=== PATIENT | male | born 1940 | race Caucasian/White ===

== ENCOUNTER 2019-08-18 15:30 | Inpatient (IN) ==
[2019-08-18 18:17] LABS: Basophils # (auto) 0.01 K/uL (0-0.2); Basophils % (auto) 0.1 %; Hematocrit (blood only) 40.8 % (42-52); Hemoglobin 13.6 g/dL (14.0-18.0); Immature Granulocytes # (auto) 0.06 K/uL (0.00-0.02); Immature Granulocytes % (auto) 0.5 %; Lymphocytes # (auto) 0.62 K/uL (1.2-3.4); Lymphocytes % (auto) 4.7 %; Mean Corpuscular Hemoglobin 32.5 pg (25-34); Mean Corpuscular Hgb Conc 33.3 g/dL (32-36); Mean Corpuscular Volume 97.4 fL (80-100); Mean Platelet Volume 12.1 fL (7.4-10.4); Monocytes # (auto) 0.51 K/uL (0.11-0.59); Monocytes % (auto) 3.9 %; Neutrophils # (auto) 11.86 K/uL (1.4-6.5); Neutrophils % (auto) 90.8 %; Platelet Count 220 K/uL (130-400); RDW Coefficient of Variation 14.3 % (11.5-14.5); RDW Standard Deviation 51.2 fL (36.4-46.3); Red Blood Count 4.19 M/uL (4.7-6.1); White Blood Count 13.06 K/uL (4.8-10.8)
[2019-08-18 18:30] LABS: Partial Thromboplastin Ratio 0.9; Partial Thromboplastin Time 25.2 Seconds (21.0-31.0); Prothrombin Time 10.5 Seconds (9.0-12.0)
[2019-08-18 18:35] LABS: BUN Creatinine Ratio 20.8 (10-20); Calcium 9.7 mg/dl (8.5-10.1); Est GFR (African American) 54.5
[2019-08-18 18:42] LABS: Troponin I 10.2 ng/ml (0-0.045)
[2019-08-18] MEDS ORDERED: OPTIRAY 320 125ml IV PRN (18:51)
--- NOTE | 2019-08-18 19:08 | CT Scan Report ---
CT angio chest PE protocol CT DOSE: 647.28 mGycm HISTORY: 78 years-old Male with Chest Pain, eval for PE. Acute chest pain TECHNIQUE: Multiple CTA images of the chest were obtained after the intravenous administration of 119 ml Optiray 320. Coronal and sagittal MIPS were obtained from the axial data set and were submitted for review. All measurements were obtained according to NASCET criteria. A dose lowering technique w as utilized adhering to the principles of ALARA. COMPARISON: CTA of the neck 06/30/2019 FINDINGS: CTA: Moderate cardiomegaly. Prior median sternotomy and CABG with [place] coronary arterial calcifications. Study is limited secondary to respiratory motion and upper extremity positioning. Fusiform dilation of the ascending thoracic aorta, 4.2 x 4.1 cm. Moderate mixed plaque with patency of the imaged great vessels. No dissection. Mild descending thoracic tortuosity. Pulmonary arterial tree is opacified to the level of the segmental branches. No filling defects identified to suggest pulmonary thromboembol ic disease. CT CHEST: Unremarkable thyroid. No adenopathy by CT size criteria. Mild bronchial wall thickening. No pneumotho rax, pleural effusion, overt pulmonary edema or airspace consolidation typical for pneumonia. Mild ross bsegmental basilar atelectasis. There are no suspicious pulmonary nodules or masses identified. The c entral airways are patent. No acute process of the imaged upper abdomen. 11 mm soft tissue density structure adjacent to the gas tric fundus is suggestive of a small splenule. Soft tissues are unremarkable. Degenerative changes of the shoulders and spine. Postoperative changes of the left proximal humerus. IMPRESSION: 1. Cardiomegaly without evidence of pulmonary thromboembolic disease. 2. Mild bronchial wall thickening may reflect bronchitis or reactive airway disease. 3. Fusiform dilation of the ascending thoracic aorta, 4.2 x 4.1 cm. 4. No adenopathy, pleural effusion or airspace consolidation to suggest pneumonia. ACT 112: Negative or not required by law. The above report was generated using voice recognition software. It may contain grammatical, syntax o r spelling errors. Electronically signed by: Mick Altamirano M.D. 08/18/2019 7:06 PM
[2019-08-18] MEDS ORDERED: ASPIRIN CHEW 324 MG PO STA (19:18)
[2019-08-18] MEDS ORDERED: Heparin IV Low Dose WITH Bolus IV STA (19:18)
[2019-08-18] MEDS ORDERED: HEPARIN SOD (PORCINE) 1000 UNIT/ML 10 ML VIAL ONE (20:12)
[2019-08-18] MEDS: HEPARIN SODIUM/DEXTROSE 25,000 UNITS/500 ML BAG IV SCH (20:19)
--- NOTE | 2019-08-18 20:45 | History & Physical Report ---
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 Acute coronary syndrome -Pt denied any prior chest pain or SOB, has none currently -Pt with noted ST segment elevations in inferior leads on EKG, since resolved. -Troponin elevated to 10.2; will trend q6h -Echo pending -aspirin 324mg given in ED -continue nitrobid 2.5mg BID scheduled -continue heparin drip; bolus given in ED -pt unsure of home hypertension med; will start on metoprolol succinate 25mg daily -can start OLIMPIA 24hrs after presentation -will admit to PCU/tele for continued monitoring -given resolution of EKG changes, pt will be taken to laborer drying department in AM. Has Hx of prior CABG 3-4 years ago in hospital, unsure hospital or number of stents placed. RJ -pt with noted baseline cr of 1.32 in Nov -currently elevated -continue fluids @80cc/hr -to d/c after 2 bags -echo ordered as above to ensure no component of fluid overload-will discontinue in that case. Right lower extremity swelling -Pt presented to [facility] doctor for evaluation -States this is the site of venous grafting for his CABG -RLE doppler showed no evidence of DVT -no concern for infection currently -continue to monitor Elevated D-Dimer -D-dimer elevated to 3110 -As above, no evidence of DVT in RLE -CTA with no noted PE, but did note cardiomegaly without thromboembolic disease, mild bronchial wall thickening, fusiform dilation of ascending thoracic aorta. -continue heparin as above HTN -pt unsure of home medication and dosage -started here on metoprolol succinate 25mg daily as above -will continue to assess bp, continue home med as needed once nature and dose verified. BPH -pt states he is on home finasteride. -will re-start once home dose confirmed. HLD -pt states he has this history and is on a home statin -recent lipid panel unremarkable -Carotid doppler 05/22/19: >70% stenosis of R internal carotid, 50-69% stenosis of L internal carotid -Neck CTA showed stenosis of R vertebral artery FEN/GI: Heart healthy diet; NSS @80cc/hr DVT prophylaxis: heparin CODE STATUS: Full Dispo: PCU/Tele History of Present Illness Primary Care Provider: [facility] Mr. 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 Pt states he does not recall having chest pain today at all, nor SOB. States there was nothing out of the ordinary except the noted swelling in his lower extremities. Recently moved a few months ago from [place], [place]. States he graduated from [employer] and wanted to retire here. 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 PMH: HTN, HLD, BPH, denies ever having an ME but states he had "open heart surgery" with stent placment 3-4 years a go (see below) PSH: Hx of CABG Allergies: NKDA Fam Hx: Mom from kidney disease, dad, unsure health Hx. No children. Unsure sibling health Hx. SH: Lives at [facility], retired. Smoked for about 2 years over 40 years ago, few cigarettes sporadically. Occasional wine drinker, no recreational drug use. Was very active in his younger years biking, now walks around [facility] property. ED Course: Heparin bolus and started on heparin drip, aspirin 324mg Allergies Allergy/AdvReac Type Severity Reaction Status Date / Time No Known Allergies Allergy Unverified 08/18/19 18:47 Home Medications Home Medications Medication Instructions Recorded Confirmed Type Prostate Medication 1 tab PO DAILY 08/18/19 08/18/19 History aspirin 81 mg PO DAILY 08/18/19 08/18/19 History cholecalciferol (vitamin D3) 0 unit PO DAILY 08/18/19 08/18/19 History [Vitamin D3] multivitamin 1 tab PO DAILY 08/18/19 08/18/19 History amlodipine [Norvasc] 5 mg PO QAM #30 tab 08/21/19 Rx atorvastatin 10 mg PO PM #30 tab 08/21/19 Rx clopidogrel 75 mg PO QAM #30 tab 08/21/19 Rx lisinopril 2.5 mg PO QPM #30 tab 08/21/19 Rx Past Med/Surg History Medical History Hypertension Family History Other No pertinent family history in first degree relatives Social History Preferred Language: Lithuanian Communication Ability: Effective Vocal Music Teacher Required: No Beliefs That Will Affect Care: None marital status: Single Current Living Situation: Personal Care Facility Feels Safe at Home: Yes Smoking Status: Never smoker Hx Alcohol Use: No Hx Substance Use: No Review of Systems Constitutional: no fever, no chills and no sweats Eyes: no worsening vision Ear, Nose, Mouth, Throat: no nasal congestion and no sore throat Respiratory: no cough and no dyspnea Cardiovascular: + edema; no chest pain, no dyspnea, no dyspnea on exertion, no palpitations and no syncope Gastrointestinal: no nausea and no vomiting Genitourinary: no dysuria Musculoskeletal: no body aches Neurologic: no tingling, no numbness and no headache(s) Physical Exam Physical Exam: General: Alert, orientedx3. No acute distress, laying in bed Skin: No noted rashes or bruises. Surgical scar noted on chest wall Psych: Appropriate mood and affect Neuro: Memory lapses but otherwise no gross deficits HEENT: NC/AT Chest: Nontender to palpation. Noted surgical scar CV: RRR, Normal s1, s2. Blowing murmur appreciated Resp: Breath sounds clear but decreased bilaterally, no increased effort of breathing. Abdomen: Soft, nontender, No guarding. No organomegaly appreciated. Extremities: edema noted in right lower extremity, some mild erythema, not warm to touch. Results & Data Vital Signs (Past 12 Hours) Vital Signs Temp Pulse Pulse Resp BP BP Pulse Ox 08/18/19 20:31 74 20 155/68 H 97 08/18/19 20:02 70 23 101/87 94 08/18/19 19:31 65 29 H 168/70 H 98 08/18/19 19:06 69 18 173/77 H 99 08/18/19 18:31 70 23 117/60 97 08/18/19 18:01 63 20 139/57 L 97 08/18/19 17:41 96 08/18/19 17:40 72 24 154/76 H 96 08/18/19 15:32 36.6 C 82 16 154/67 H Supervising Physician Co-Signing Physician Notes Attending addendum: I have physically seen this patient, have supervised the medical residents activities, and agree with the H&P unless as otherwise noted. Assessment and Plan: Acute coronary syndrome/CAD/hypertension/status post CABG with stent placement- The patient will be admitted to telemetry for serial cardiac enzymes, serial EKG's, cardiac rhythm monitoring and a 2-D echocardiogram with Dopplers. Review of EKG shows initial EKG had [address] elevations in inferior leads, which is resolved on repeat EKG. Aspirin 324 mg given in ED Continue metoprolol succinate 25 mg p.o. daily. Continue heparin drip Nitropaste 1 inch anterior chest wall every [address] interventional cardiology Dr. Jeong, who is already aware patient Acute kidney injury-- creatinine 1.41 upon arrival NSS at 80 mils per hour. Repeat labs in a.m. Remainder of orders and notations as noted. Resident Activity Tracking Resident Involvement: Resident Care Provided Care Provided: Adult Hospital Medicine
[2019-08-18] MEDS: METOPROLOL SUCC 25MG EXT REL TAB PO SCH (22:28)
[2019-08-18] MEDS: NITROGLYCERIN 2.5 MG PO SCH (22:28)
[2019-08-18] MEDS: SODIUM CHLORIDE 0.9% 1000ML 1,000 ML IV SCH (22:30)
--- NOTE | 2019-08-18 22:50 | Emergency Department Note ---
Entered by Delicia Guillen acting as a scribe for Joe Smith History of Present Illness General Chief complaint: Abnormal Labs/Diagnostic Testing Stated complaint: ABNORMAL LABS Time Seen by Provider: 08/18/19 17:24 Source: patient History of Present Illness Onset (ago): hour(s) (today ) Location: head (general ) Pain Consistency: + other (episode ) Quality: + other (abnormal labs ) Associated symptoms: + other (positive right leg swelling; negative coughing up blood); no chest pain and no shortness of breath The patient is a 78 year old male who presents to the Emergency Room with complaints of an episode of abnormal labs that began today. The patient states that he had lab work and an ultrasound of the right leg today as he has had increased right leg swelling over the past several days. The patient states that this began after he had a cold last week. The patient denies chest pain, shortness of breath, and coughing up blood. The patient denies any recent travel. He denies any recent fall and any recent trauma to his right leg. The patient states that he has been taking medication for costochondritis. Home Medications Home Medications Medication Instructions Recorded Confirmed Type Blood Pressure Medication 1 tab PO DAILY 08/18/19 08/18/19 History Prostate Medication 1 tab PO DAILY 08/18/19 08/18/19 History aspirin 81 mg PO DAILY 08/18/19 08/18/19 History cholecalciferol (vitamin D3) 0 unit PO DAILY 08/18/19 08/18/19 History [Vitamin D3] multivitamin 1 tab PO DAILY 08/18/19 08/18/19 History Allergies Allergy/AdvReac Type Severity Reaction Status Date / Time No Known Allergies Allergy Unverified 08/18/19 18:47 Past Med/Surg History Medical History Hypertension Family History Other No pertinent family history in first degree relatives Social History Preferred Language: Stateless Communication Ability: Effective Head Rigger Required: No Beliefs That Will Affect Care: None Current Living Situation: Personal Care Facility Other Information That Helps Us Care for You: No Feels Safe at Home: Yes Safety Concerns: Feels Safe At This Time Smoking Status: Never smoker Alcohol Use: No Hx Substance Use: No Review of Systems See HPI for pertinent positives & negatives. and A total of 10 systems reviewed and were otherwise negative Physical Exam Vital Signs Vital Signs - 24 hr 08/18/19 15:32 08/18/19 17:40 08/18/19 17:41 Temperature 36.6 C Temperature Source Oral Pulse Rate 82 Pulse Rate [Apical] 72 Pulse Rate from SpO2 Sensor Pulse Rhythm Regular Pulse Rhythm [Apical] Irregular Pulse Strength Normal Respiratory Rate 16 24 Respiratory Effort / Characteristics Non-Labored Non-Labored Spontaneous Respiratory Depth Normal Normal Respiratory Pattern Regular Blood Pressure 154/67 H Blood Pressure [Left Arm] 154/76 H Blood Pressure Mean 96 Blood Pressure Mean [Left Arm] 102 Pulse Oximetry 96 96 Oxygen Delivery Method Room Air Room Air Room Air Sepsis Recent Fever Within 48 Hours No Sepsis Action Taken by Nursing No Action Required 08/18/19 18:01 08/18/19 18:31 08/18/19 19:06 Temperature Temperature Source Pulse Rate 63 70 Pulse Rate [Apical] 69 Pulse Rate from SpO2 Sensor 63 73 Pulse Rhythm Pulse Rhythm [Apical] Pulse Strength Respiratory Rate 20 23 18 Respiratory Effort / Characteristics Non-Labored Respiratory Depth Normal Respiratory Pattern Regular Blood Pressure 139/57 L 117/60 Blood Pressure [Left Arm] 173/77 H Blood Pressure Mean 94 81 Blood Pressure Mean [Left Arm] 109 Pulse Oximetry 97 97 99 Oxygen Delivery Method Room Air Room Air Sepsis Recent Fever Within 48 Hours Sepsis Action Taken by Nursing 08/18/19 19:31 08/18/19 20:02 Temperature Temperature Source Pulse Rate 65 70 Pulse Rate [Apical] Pulse Rate from SpO2 Sensor 69 71 Pulse Rhythm Pulse Rhythm [Apical] Pulse Strength Respiratory Rate 29 H 23 Respiratory Effort / Characteristics Respiratory Depth Respiratory Pattern Blood Pressure 168/70 H 101/87 Blood Pressure [Left Arm] Blood Pressure Mean 80 95 Blood Pressure Mean [Left Arm] Pulse Oximetry 98 94 Oxygen Delivery Method Room Air Sepsis Recent Fever Within 48 Hours Sepsis Action Taken by Nursing GENERAL: He is oriented to person, place, and time. He appears well-developed and well-nourished. He does not appear distressed. HENT: Exam performed. - Head: Normocephalic and atraumatic. - Right Ear: External ear normal. No mastoid tenderness. - Left Ear: External ear normal. No mastoid tenderness. - Mouth/Throat: The oropharynx is clear and moist. No trismus in the jaw. No dental abscesses or uvula swelling. No oropharyngeal exudate or tonsillar abscesses. EYES: Conjunctivae and EOM are normal. Pupils are equal, round, and reactive to light. Right eye exhibits no discharge. Left eye exhibits no discharge. No scleral icterus. NECK: Normal range of motion. Neck supple. No JVD present. No spinous process tenderness present. No carotid bruit present. No rigidity. No tracheal deviation and normal range of motion present. No Brudzinski's sign and no Kernig's sign noted. CV: Normal rate, regular rhythm, normal heart sounds and intact distal pulses. There is no peripheral edema. Palpable radial pulses bue. PULM/CHEST: Effort normal and breath sounds normal. No respiratory distress. No stridor. He has no wheezes. He has no rales. - Chest Wall: He exhibits no tenderness. ABD: The abdomen is soft. Bowel sounds are normal. He has no distension. No mass is present. There is no tenderness. There is no rebound, no guarding, no Trejo's sign and no tenderness at McBurney's point. Rovsig negative. MUSC/SKEL: Right lower extremity swelling. 2+ pitting edema. Palpable DP and PT pulses bilaterally. Normal range of motion. There is no tenderness or deformity. LYMPH: No cervical adenopathy. NEURO: He is alert and oriented to person, place, and time. He has normal strength. No cranial nerve deficit or sensory deficit. Coordination and gait normal. GCS eye subscore is 4. GCS verbal subscore is 5. GCS motor subscore is 6. Cerebellar tests wnl. SKIN: Skin is warm and dry. He is not diaphoretic. PSYCH: He has a normal mood and affect. Behavior is normal. Judgment and thought content normal. Course Course 1726: Past medical records reviewed. The patient was evaluated in room A10. A complete history and physical exam was performed. EMR reviewed showed that the patient had lab work performed today that showed elevated d-dimer. 1846: Vital signs stable. Patient's troponin is elevated. Upon reevaluation, the patient continues to report absolutely zero chest pain and shortness of breath. The patient is not in acute distress. His ECG shows very mild ST elevation in leads III and aVF, extremely mild ST depression in lead V2, and a 1st degree AV block. The patient denies ever seeing a blending line attendant in this area. 1857: The patient's most recent ECG shows no ST elevation or ST depressions. The patient continues to deny chest pain and shortness of breath. I discussed the case with Dr. CashCardiology who recommends starting the patient on Heparin. Given that the patient denies any chest pain or difficulty breathing and has not had any in the emergency department both Dr. Jeong and I feel that the patient does not need to be emergently taken for cardiac catheterization. Dr. Cash Cardiology states that he will evaluate the patient in the morning. 1918: [facility] evaluation. Administered Medications Heparin Sodium/Dextrose (Heparin Sodium/Dextrose) 25,000 units in 500 mls @ 20 mls/hr IV .Q24H [facility]; Protocol Stop: 09/17/19 19:29 Last Admin: 08/18/19 20:19 Dose: 1,000 units/hr, 20 mls/hr Documented by: [id number] Cosigned by: [id number] Sodium Chloride (Nss 1000ml) 1,000 mls @ 80 mls/hr IV .[id number] [facility] Stop: 08/19/19 22:22 Last Admin: 08/18/19 22:30 Dose: 80 mls/hr Documented by: [id number] Metoprolol Succinate (Toprol Xl) 25 mg PO QAM [facility] Stop: 09/17/19 21:22 Last Admin: 08/18/19 22:28 Dose: 25 mg Documented by: [id number] Nitroglycerin (Nitrobid) 2.5 mg PO BID [facility] Stop: 09/17/19 21:22 Last Admin: 08/18/19 22:28 Dose: 2.5 mg Documented by: [id number] Discontinued Medications Aspirin (Aspirin) 324 mg PO NOW [facility] Stop: 08/18/19 19:19 Last Admin: 08/18/19 19:44 Dose: 324 mg Documented by: [id number] Heparin Sodium (Porcine) (Heparin Iv Bolus) Confirm Administered Dose 10,000 units .ROUTE .STK-MED ONE Stop: 08/18/19 20:13 Last Admin: 08/18/19 20:17 Dose: 4,000 units Documented by: [id number] Cosigned by: [id number] Heparin Sodium/Dextrose () 1 ea IV NOW STA; Protocol Stop: 08/18/19 19:19 Last Admin: 08/18/19 20:20 Dose: Not Given Documented by: [id number] Ioversol (Optiray 320 125ml) 119 ml IV ONCE PRN PRN Reason: Interaction Checking Stop: 08/22/19 18:50 Last Admin: 08/18/19 18:51 Dose: 119 ml Documented by: [id number] Critical Care Time Critical Care Time: Yes Total Critical Care Time: 79 I have personally spent 79 minutes of critical care time in the direct management of this patient. This includes bedside care, interpretation of diagnostic studies, and testing, discussion with consultants, patient, and family members, and other required patient management activities. This 79 minutes is in excess of all separately billable procedures. Medical Decision Making Medical Records Attestation: I reviewed the patient's medical records. Home Medications Current Medication List: was personally reviewed by me Laboratory Data Attestation: I reviewed the patient's lab results. Result diagrams: 08/18/19 17:55 08/18/19 17:55 Lab Results 08/18/19 08/18/19 08/18/19 Range/Units 17:55 17:55 17:55 WBC 13.06 H (4.8-10.8) K/uL RBC 4.19 L (4.7-6.1) M/uL Hgb 13.6 L (14.0-18.0) g/dL Hct 40.8 L (42-52) % MCV 97.4 (80-100) fL MCH 32.5 (25-34) pg MCHC 33.3 (32-36) g/dL RDW Std Deviation 51.2 H (36.4-46.3) fL RDW Coeff of Marisol 14.3 (11.5-14.5) % Plt Count 220 (130-400) K/uL MPV 12.1 H (7.4-10.4) fL Immature Gran % (Auto) 0.5 % Neut % (Auto) 90.8 % Lymph % (Auto) 4.7 % Beadle % (Auto) 3.9 % Eos % (Auto) 0.0 % Baso % (Auto) 0.1 % Immature Gran # (Auto) 0.06 H (0.00-0.02) K/uL Neut # (Auto) 11.86 H (1.4-6.5) K/uL Lymph # (Auto) 0.62 L (1.2-3.4) K/uL Beadle # (Auto) 0.51 (0.11-0.59) K/uL Eos # (Auto) 0.00 (0-0.5) K/uL Baso # (Auto) 0.01 (0-0.2) K/uL PT 10.5 (9.0-12.0) Seconds INR 1.0 (0.9-1.1) APTT 25.2 (21.0-31.0) Seconds PTT Ratio 0.9 Sodium 135 L (136-145) mmol/L Potassium 5.0 (3.5-5.1) mmol/L Chloride 104 (98-107) mmol/L Carbon Dioxide 26 (21-32) mmol/L Anion Gap 6.0 (3-11) BUN 29 H (7-18) mg/dl Creatinine 1.41 H (0.6-1.4) mg/dl Est Cr Clr Drug Dosing 52.0 ml/min Est GFR ( Amer) 54.5 Est GFR (Non-Af Amer) 47.0 BUN/Creatinine Ratio 20.8 H (10-20) Glucose 152 H (70-99) mg/dl Calcium 9.7 (8.5-10.1) mg/dl Troponin I 10.200 H* (0-0.045) ng/ml Lipase 100 (73-393) U/L Imaging Data Radiologist's Impression: Radiology results as stated below per my review and the radiologist's interpretation: CT angio chest PE protocol CT DOSE: 647.28 mGycm HISTORY: 78 years-old Male with Chest Pain, eval for PE. Acute chest pain TECHNIQUE: Multiple CTA images of the chest were obtained after the intravenous administration of 119 ml Optiray 320. Coronal and sagittal MIPS were obtained from the axial data set and were submitted for review. All measurements were obtained according to NASCET criteria. A dose lowering technique was utilized adhering to the principles of ALARA. COMPARISON: CTA of the neck 06/30/2019 FINDINGS: CTA: Moderate cardiomegaly. 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 Study is limited secondary to respiratory motion and upper extremity positioning. Fusiform dilation of the ascending thoracic aorta, 4.2 x 4.1 cm. Moderate mixed plaque with patency of the imaged great vessels. No dissection. Mild descending thoracic tortuosity. Pulmonary arterial tree is opacified to the level of the segmental branches. No filling defects identified to suggest pulmonary thromboembolic disease. CT CHEST: Unremarkable thyroid. No adenopathy by CT size criteria. Mild bronchial wall thickening. No pneumothorax, pleural effusion, overt pulmonary edema or airspace consolidation typical for pneumonia. Mild subsegmental basilar atelectasis. There are no suspicious pulmonary nodules or masses identified. The central airways are patent. No acute process of the imaged upper abdomen. 11 mm soft tissue density structure adjacent to the gastric fundus is suggestive of a small splenule. Soft tissues are unremarkable. Degenerative changes of the shoulders and spine. Postoperative changes of the left proximal humerus. IMPRESSION: 1. Cardiomegaly without evidence of pulmonary thromboembolic disease. 2. Mild bronchial wall thickening may reflect bronchitis or reactive airway disease. 3. Fusiform dilation of the ascending thoracic aorta, 4.2 x 4.1 cm. 4. No adenopathy, pleural effusion or airspace consolidation to suggest pneumonia. ACT 112: Negative or not required by law. The above report was generated using voice recognition software. It may contain grammatical, syntax or spelling errors. Electronically signed by: Mick Altamirano M.D. 08/18/2019 7:06 PM ECG Data Attestation: I personally reviewed and interpreted this ECG as follows: Rate (beats per minute): 78 Rhythm: + sinus rhythm ECG Intervals/blocks: + First degree AV block, + Normal QRS, + Normal SD (238) and + Normal QT-c ECG ST segments: + ST depression (very mild in V2) and + ST elevation (very subtle) Additional Comments: REPEAT ECG AT 183: Sinus rhythm with a rate of 61. SD interval 224. QRS and QTC intervals within normal limits. Very mild ST elevation in lead III and aVF. Mild ST depression in V2. 1st degree AV block present. REPEAT ECG AT 1914: Sinus rhythm with a rate of 67. SD interval 216. QRS and QTC intervals within normal limits. No ST elevation or ST depression. 1st degree AV block present. Blood Pressure Blood Pressure Findings: Elevated blood pressure Blood Pressure Disposition: further management by hospitalist RADHA Narrative 1726: Past medical records reviewed. The patient was evaluated in room A10. A complete history and physical exam was performed. EMR reviewed showed that the patient had lab work performed today that showed elevated d-dimer. 1846: Vital signs stable. Patient's troponin is elevated. Upon reevaluation, the patient continues to report absolutely zero chest pain and shortness of breath. The patient is not in acute distress. His ECG shows very mild ST elevation in leads III and aVF, extremely mild ST depression in lead V2, and a 1st degree AV block. The patient denies ever seeing a blending line attendant in this area. 1857: The patient's most recent ECG shows no ST elevation or ST depressions. The patient continues to deny chest pain and shortness of breath. I discussed the case with Dr. Ha who recommends starting the patient on Heparin. Given that the patient denies any chest pain or difficulty breathing and has not had any in the emergency department both Dr. Jeong and I feel that the patient does not need to be emergently taken for cardiac catheterization. Dr. Shailesh Soria states that he will evaluate the patient in the morning. 191: I discussed the case with [facility] Hospitalist who accepts the patient for further evaluation. Impression & Plan Non-ST elevation SC (NSTEMI) Discharge Plan Visit Data *Final* Discharge Date/Time: 08/18/19 20:40 Chief Complaint: Abnormal Labs/Diagnostic Testing Stated Complaint: ABNORMAL LABS ED Provider: Joe Smith Discharge Problem: Non-ST elevation SC (NSTEMI) Patient Disposition: Admitted As Inpatient Discharge Instructions Interventions: ED Discharge Assessment Last Done: 08/18/19 20:40 The edgaribe's documentation has been prepared under my direction and personally reviewed by me in its entirety. I confirm that the note above accurately reflects all work, treatment, procedures, and medical decision making performed by me.
[2019-08-19 02:42] LABS: Basophils # (auto) 0.02 K/uL (0-0.2); Basophils % (auto) 0.1 %; Hematocrit (blood only) 39.2 % (42-52); Hemoglobin 13.4 g/dL (14.0-18.0); Immature Granulocytes # (auto) 0.09 K/uL (0.00-0.02); Immature Granulocytes % (auto) 0.6 %; Lymphocytes # (auto) 1.87 K/uL (1.2-3.4); Lymphocytes % (auto) 13.1 %; Mean Corpuscular Hemoglobin 33.2 pg (25-34); Mean Corpuscular Hgb Conc 34.2 g/dL (32-36); Mean Platelet Volume 11.9 fL (7.4-10.4); Monocytes # (auto) 1.02 K/uL (0.11-0.59); Monocytes % (auto) 7.2 %; Neutrophils # (auto) 11.24 K/uL (1.4-6.5); Platelet Count 222 K/uL (130-400); RDW Coefficient of Variation 14.1 % (11.5-14.5); RDW Standard Deviation 50.3 fL (36.4-46.3); Red Blood Count 4.04 M/uL (4.7-6.1); White Blood Count 14.24 K/uL (4.8-10.8)
[2019-08-19 02:52] LABS: Partial Thromboplastin Ratio 1.3
[2019-08-19 03:04] LABS: BUN Creatinine Ratio 21.7 (10-20); Est GFR (African American) 54.1; Est GFR (Non-African American) 46.6; Potassium 4.6 mmol/L (3.5-5.1)
[2019-08-19] MEDS ORDERED: HEPARIN IV BOLUS 4,500 UNITS in SYRINGE 0 ML IV ONE ×3 (03:05→19:15)
[2019-08-19] MEDS: METOPROLOL SUCC 25MG EXT REL TAB PO SCH (08:47)
[2019-08-19] MEDS: NITROGLYCERIN 2.5 MG PO SCH (08:47)
[2019-08-19 10:16] LABS: Partial Thromboplastin Ratio 1.4
[2019-08-19] MEDS: SODIUM CHLORIDE 0.9% 1000ML 1,000 ML IV SCH (11:40)
--- NOTE | 2019-08-19 12:44 | Cardiology Consultation ---
Date of Consultation August 19, 2019 Assessment & Plan (1) Non-ST elevation MD (NSTEMI): The patient elevated biomarkers at the time of presentation. Presumably these represent some form of myocardial injury. Curiously he had no symptoms leading up to his admission suggestive of an acute coronary syndrome. However, they are markedly elevated. His echocardiogram did not demonstrate any specific wall motion abnormality suggestive of recent or acute infarct. He did not relate any specific symptoms leading up to his surgical revascularization few years ago. Given his history of coronary disease and the marked elevation biomarkers would seem reasonable to perform coronary angiography. I agree with institution of systemic heparinization, use of beta-blockade and daily aspirin. Will monitor his symptoms and biomarkers and decide on the timing of angiography provided he is willing. (2) Coronary artery disease: We do not have any details regarding his coronary anatomy or bypass surgery. He cannot recall the name of the surgeon or the hospital in which this was performed. However I do believe of located his receiving specialist and will attempt to obtain these records. According to the patient he was only on a daily aspirin for secondary prevention. His LDL measured in April of 2019 was 59. Perhaps this is the reason he had not been placed on statin therapy. Again, think we can attempt to obtain his records to see how he developed his current medical regimen. (3) Aortic aneurysm: This can be monitored over time. Unclear if this was known prior to CT scanning performed yesterday. Again, he will need good blood pressure control and beta-blockade. (4) Hypertension: Blood pressure continues to be elevated. I would agree with institution of beta-jr given his cardiac disease, NSTEMI and aortic aneurysm. If he continues to be elevated he may benefit from amlodipine or calcium channel jr. Given his preserved LV systolic function and mild renal insufficiency I think Lencho inhibition will be less desirable. (5) Heart block AV first degree: He has some blocked PACs at times. No other severe form of heart block. We will need to monitor his response to beta-blockade. History of Present Illness Reason for Consultation: Abnormal EKG and elevated troponin Requesting Physician: David Attending Physician: Shayne Hernandez MD History of Present Illness The patient is a 78-year-old gentleman with a history of coronary artery disease having previously undergone surgical revascularization who presented to his primary care physician for evaluation of right leg swelling. The patient is a difficult historian, but it appears that over the past several days he has noticed some increased swelling in the right lower extremity. He states that subsequent to his bypass surgery 5 years ago he had atrophy of the right leg. This recently has progressed to significant swelling. He denied pain in the right leg or difficulty with ambulation as result. At some point it seems that the patient presented to the emergency room for evaluation. Perhaps related to an abnormal EKG. In the emergency room he was felt to have an EKG consistent with an acute coronary syndrome despite the absence of symptoms. He is also noted to have elevated cardiac biomarkers. He underwent an additional evaluation which included lower extremity ultrasound and chest CT. He was not felt to be suffering from an acute coronary syndrome as he did not have any symptoms of that nature. However, he was admitted for observation and placed on systemic anticoagulation as result of his abnormal lab tests. The patient does endorse a history of chest discomfort. The true nature of the chest discomfort is difficult for him to characterize, but it seems to be spasmodic and related to changes in position. He alternately calls this costochondritis or a infection. It seems that he has been treated for symptoms of this nature in the past. He states that over the past 2 weeks he has had some of this discomfort, again associated with trying to get out of bed or supine position. He describes it as a squeezing or grabbing discomfort thickened involve the abdomen and the chest cavity. Once he is upright in ambulatory does not seem to have the same symptom. It is not described as a chronic chest discomfort. He has no symptoms at rest. He was prescribed a prednisone taper for this malady by his doctor at [facility]. He claims to be an active individual who is able to perform routine activity without symptom. He denies any exertional dyspnea. He denies exertional chest pain or other chest pains. He cannot recall any symptoms leading up to his surgical revascularization several years ago. He cannot recall the hospital or the surgeon where his procedure was performed. He does recall that was performed in [place]. He does report feeling better after his bypass surgery. This seemed to be manifest primarily by increased energy and exertional tolerance. Allergies Allergy/AdvReac Type Severity Reaction Status Date / Time No Known Allergies Allergy Unverified 08/18/19 18:47 Home Medications Home Medications Medication Instructions Recorded Confirmed Type Blood Pressure Medication 1 tab PO DAILY 08/18/19 08/18/19 History Prostate Medication 1 tab PO DAILY 08/18/19 08/18/19 History aspirin 81 mg PO DAILY 08/18/19 08/18/19 History cholecalciferol (vitamin D3) 0 unit PO DAILY 08/18/19 08/18/19 History [Vitamin D3] multivitamin 1 tab PO DAILY 08/18/19 08/18/19 History Patient History Medical History Hypertension Family History Other No pertinent family history in first degree relatives Social History Preferred Language: Latvian Communication Ability: Effective Economic History Teacher Required: No Beliefs That Will Affect Care: None Current Living Situation: Personal Care Facility Other Information That Helps Us Care for You: No Feels Safe at Home: Yes Safety Concerns: Feels Safe At This Time Smoking Status: Never smoker Hx Alcohol Use: No Hx Substance Use: No Review of Systems Review of Systems: All systems reviewed & are unremarkable except as noted in HPI & below No recent fevers or chills. No pain in the right lower extre mity. No sense of palpitation. No syncope. Physical Exam Physical Exam: The patient is alert and oriented. Mood and affect appeared normal. He answered all questions appropriately. Obese HEENT: Pupils are equal and reactive to light and accommodation. Extraocular movements are intact. The sclerae are anicteric. Neuro: Cranial nerves intact Neck: Patient's neck is supple. He has palpable carotid pulses bilaterally with bilateral bruits versus radiation of aortic murmur. There is no evidence of jugular venous distention. The thyroid is not enlarged. Lungs: Clear to auscultation bilaterally. He has good air movement without use of accessory muscles. No rales wheezes or rhonchi. Cardiac: Heart demonstrates a regular rate and rhythm. Normal S1 and S2. Crescendo systolic murmur. Pulses: The patient has palpable radial pulses bilaterally that are equal in intensity Extremities: There was no evidence of hypoperfusion. There is no cyanosis or clubbing. Mild left lower extremity edema with more pronounced edema involving the right lower extremity.. Skin: I did not appreciate any rashes on examination today. Results & Data ([facility]) Vital Signs (Past 12 Hours) Vital Signs Temp Pulse Pulse Resp BP Pulse Ox 08/19/19 08:00 85 08/19/19 07:35 37.2 C 79 18 184/74 H 99 08/19/19 02:30 36.7 C 71 22 161/75 H 98 Laboratory Results Abnormal Lab Results 08/18/19 08/18/19 08/18/19 17:55 17:55 17:55 WBC 13.06 H RBC 4.19 L Hgb 13.6 L Hct 40.8 L MCV 97.4 MCH 32.5 MCHC 33.3 RDW Std Deviation 51.2 H RDW Coeff of Marisol 14.3 Plt Count 220 MPV 12.1 H Immature Gran % (Auto) 0.5 Neut % (Auto) 90.8 Lymph % (Auto) 4.7 Bennett % (Auto) 3.9 Eos % (Auto) 0.0 Baso % (Auto) 0.1 Immature Gran # (Auto) 0.06 H Neut # (Auto) 11.86 H Lymph # (Auto) 0.62 L Bennett # (Auto) 0.51 Eos # (Auto) 0.00 Baso # (Auto) 0.01 PT 10.5 INR 1.0 APTT 25.2 PTT Ratio 0.9 Sodium 135 L Potassium 5.0 Chloride 104 Carbon Dioxide 26 Anion Gap 6.0 BUN 29 H Creatinine 1.41 H Est Cr Clr Drug Dosing 52.0 Est GFR ( Amer) 54.5 Est GFR (Non-Af Amer) 47.0 BUN/Creatinine Ratio 20.8 H Glucose 152 H Calcium 9.7 Troponin I 10.200 H* Lipase 100 08/19/19 08/19/19 08/19/19 00:19 02:22 02:22 WBC 14.24 H RBC 4.04 L Hgb 13.4 L Hct 39.2 L MCV 97.0 MCH 33.2 MCHC 34.2 RDW Std Deviation 50.3 H RDW Coeff of Marisol 14.1 Plt Count 222 MPV 11.9 H Immature Gran % (Auto) 0.6 Neut % (Auto) 79.0 Lymph % (Auto) 13.1 Bennett % (Auto) 7.2 Eos % (Auto) 0.0 Baso % (Auto) 0.1 Immature Gran # (Auto) 0.09 H Neut # (Auto) 11.24 H Lymph # (Auto) 1.87 Bennett # (Auto) 1.02 H Eos # (Auto) 0.00 Baso # (Auto) 0.02 PT INR APTT PTT Ratio Sodium 137 Potassium 4.6 Chloride 105 Carbon Dioxide 28 Anion Gap 4.0 BUN 31 H Creatinine 1.42 H Est Cr Clr Drug Dosing 51.0 Est GFR ( Amer) 54.1 Est GFR (Non-Af Amer) 46.6 BUN/Creatinine Ratio 21.7 H Glucose 106 H Calcium 9.0 Troponin I 9.950 H* Lipase 08/19/19 08/19/19 08/19/19 02:22 07:10 09:50 WBC RBC Hgb Hct MCV MCH MCHC RDW Std Deviation RDW Coeff of Marisol Plt Count MPV Immature Gran % (Auto) Neut % (Auto) Lymph % (Auto) Bennett % (Auto) Eos % (Auto) Baso % (Auto) Immature Gran # (Auto) Neut # (Auto) Lymph # (Auto) Bennett # (Auto) Eos # (Auto) Baso # (Auto) PT INR APTT 36.0 H 37.0 H PTT Ratio 1.3 1.4 Sodium Potassium Chloride Carbon Dioxide Anion Gap BUN Creatinine Est Cr Clr Drug Dosing Est GFR ( Amer) Est GFR (Non-Af Amer) BUN/Creatinine Ratio Glucose Calcium Troponin I 9.850 H* Lipase Diagnostic Findings Chest CT obtained at the time of admission revealed an ascending thoracic aortic aneurysm measuring 4.2 x 4.1 cm. No evidence of pulmonary embolus. Lower extremity venous examination did not demonstrate thrombus. ECG Additional Comments: EKG obtained time wishing revealed sinus rhythm with first- degree AV block, occasional blocked PACs, incomplete right bundle branch block and nonspecific ST and T-wave changes PG Care Time/CCT Total # of Minutes Spent Total Time Spent with Patient: Total time spent is greater than 50% in coordination of care (as documented) at patient's floor/unit and/or counseling patient: Coding Level of Care Code 80836 Initial Inpt Care Lvl 3 Diagnoses Non-ST elevation MD (NSTEMI) I21.4 Coronary artery disease I25.10 Aortic aneurysm I71.9 Hypertension I10 Heart block AV first degree I44.0
--- NOTE | 2019-08-19 12:52 | XCELERA ---
[id number] [id number]
--- NOTE | 2019-08-19 13:12 | Hospitalist Progress Note ---
Date of Service August 19, 2019 Assessment & Plan (1) Non-ST elevation DC (NSTEMI): Troponin of 10 on admission with slight downtrend so far. Given high elevation, we are assuming this represents a silent ACS. Echo shows EF 55-60% with no regional wall motion abnormalities. - Seen by cardiology - Agree with recs - Heparin gtt, ASA, beta-jr - Planning catheterization; however, timing unsure at this point. Given lack of symptoms and downtrending troponin, no likely harm in slight delay. (2) Coronary artery disease: History of CABG 3-[address] [facility] in [place]. Moved to [email or web address] recently to retire, so no records in chart at this time, and he cannot recall exactly. - Continue meds as above (3) Aortic aneurysm: Echo this admission shows borderline aortic root dilation. - Outpatient follow up (4) Hypertension: BP is as high as 185/75 in the setting of his NSTEMI and anxiety. - Continue metoprolol; consider adding calcium channel jr if continues to be high (5) BPH (benign prostatic hyperplasia): Patient only notes being on a "prostate medication." Unclear what it is. - Monitor symptoms; if severe, can straight cath, empirically start tamsulosin, or put in Lau (6) DVT prophylaxis: On heparin gtt for NSTEMI Admission and Anticipated Discharge Date Admission Date: August 18, 2019 Subjective Feels ok today. His right leg is still slightly swollen, but otherwise, he has no symptoms. No chest pain. Reports no fevers/chills, chest pain, shortness of breath, abdominal pain, nausea, or vomiting. Physical Exam Constitutional: WD/WN, vitals as above + obese and cooperative Eyes: EOM intact bilaterally; no conjunctival abnormality ENMT: external ear and nose normal, oropharynx normal Neck: trachea midline, no thyromegaly normal visual inspection Respiratory: normal respiratory effort, lungs clear to auscultation no respiratory distress Cardiovascular: RRR, no murmur, no edema Gastrointestinal (Abdomen): Inspection/Auscultation: abdomen normal to inspection; abdomen not distended Musculoskeletal: no cyanosis or clubbing, extremities motor strength 5/5 Skin: no rashes, warm and dry Neurologic: moves all extremities and awake Psychiatric: Orientation: alert, oriented to person and cooperative Affect: + anxious affect Results & Data ([facility]) Vital Signs (Past 12 Hours) Vital Signs Temp Pulse Pulse Resp BP Pulse Ox 08/19/19 08:00 85 08/19/19 07:35 37.2 C 79 18 184/74 H 99 08/19/19 02:30 36.7 C 71 22 161/75 H 98 PG Care Time/CCT Total # of Minutes Spent Total Time Spent with Patient: Total time spent is greater than 50% in coordination of care (as documented) at patient's floor/unit and/or counseling patient: Coding Level of Care Code 98432 Subseq Hosp Care Lvl 3 Diagnoses Non-ST elevation DC (NSTEMI) I21.4 Coronary artery disease I25.10 Aortic aneurysm I71.9 Hypertension I10 BPH (benign prostatic hyperplasia) N40.0 DVT prophylaxis Z29.9
[2019-08-19] MEDS ORDERED: PERFLUTREN LIPID MICROSPHERE (DEFINITY) IV ONE (14:10)
[2019-08-19] MEDS ORDERED: PNEUMOCOCCAL Polysaccharide Vaccine 25mcg/0.5mL vial/Syr IM ONE (14:15)
[2019-08-19] MEDS ORDERED: INFLUENZA Vaccine HIGH DOSE 65+yrs 0.5 mL Syr IM ONE (14:15)
--- NOTE | 2019-08-19 18:05 | Electrocardiogram Report ---
Test Reason : Blood Pressure : / mmHG Vent. Rate : 078 BPM Atrial Rate : 078 BPM P-R Int : 238 ms QRS Dur : 096 ms QT Int : 408 ms P-R-T Axes : 009 -16 074 degrees QTc Int : 465 ms Sinus rhythm with 1st degree A-V block with Premature supraventricular complexes RSR' or QR pattern in V1 suggests right ventricular conduction delay Moderate voltage criteria for LVH, may be normal variant Nonspecific ST and T wave abnormality Prolonged QT Abnormal ECG No previous ECGs available Confirmed by Delroy Alonso ([id number]) on 08/19/2019 6:05:24 PM Referred By: [facility] Confirmed By:Fernando Alonso
--- NOTE | 2019-08-19 18:07 | Electrocardiogram Report ---
Test Reason : Blood Pressure : / mmHG Vent. Rate : 061 BPM Atrial Rate : 061 BPM P-R Int : 224 ms QRS Dur : 084 ms QT Int : 448 ms P-R-T Axes : 028 -05 096 degrees QTc Int : 450 ms Sinus rhythm with marked sinus arrhythmia with 1st degree A-V block and blocked PACs Left ventricular hypertrophy with repolarization abnormality Nonspecific ST abnormality Abnormal ECG Confirmed by Delroy Alonso ([id number]) on 08/19/2019 6:07:13 PM Referred By: Hayden Arnett Confirmed By:Fernando Alonso
--- NOTE | 2019-08-19 18:08 | Electrocardiogram Report ---
Test Reason : Blood Pressure : / mmHG Vent. Rate : 067 BPM Atrial Rate : 067 BPM P-R Int : 216 ms QRS Dur : 096 ms QT Int : 420 ms P-R-T Axes : 042 -16 067 degrees QTc Int : 443 ms Sinus rhythm with marked sinus arrhythmia with 1st degree A-V block and blocked PACs Minimal voltage criteria for LVH, may be normal variant Nonspecific T wave abnormality Abnormal ECG When compared with ECG of 18-AUG-2019 18:37, (unconfirmed) No significant change was found Confirmed by Delroy Alonso ([id number]) on 08/19/2019 6:07:58 PM Referred By: [facility] Confirmed By:Fernando Alonso
[2019-08-19 18:57] LABS: Partial Thromboplastin Ratio 1.2; Partial Thromboplastin Time 32.8 Seconds (21.0-31.0)
[2019-08-19] MEDS: HEPARIN SODIUM/DEXTROSE 25,000 UNITS/500 ML BAG IV SCH (19:06)
[2019-08-20 02:14] LABS: BUN Creatinine Ratio 19.9 (10-20); Calcium 8.3 mg/dl (8.5-10.1); Creatinine Clr Calc Pharmacy 55.5 ml/min; Est GFR (African American) 59.6; Est GFR (Non-African American) 51.4
[2019-08-20 02:29] LABS: Partial Thromboplastin Ratio 1.8
[2019-08-20 02:31] LABS: Partial Thromboplastin Time 50.1 Seconds (21.0-31.0)
[2019-08-20 02:34] LABS: Troponin I 6.9 ng/ml (0-0.045)
[2019-08-20 06:41] LABS: Basophils # (auto) 0.01 K/uL (0-0.2); Basophils % (auto) 0.1 %; Eosinophils # (auto) 0.01 K/uL (0-0.5); Eosinophils % (auto) 0.1 %; Hematocrit (blood only) 36.4 % (42-52); Hemoglobin 12.1 g/dL (14.0-18.0); Immature Granulocytes # (auto) 0.11 K/uL (0.00-0.02); Immature Granulocytes % (auto) 0.9 %; Lymphocytes # (auto) 1.24 K/uL (1.2-3.4); Mean Corpuscular Hemoglobin 32.1 pg (25-34); Mean Corpuscular Hgb Conc 33.2 g/dL (32-36); Mean Corpuscular Volume 96.6 fL (80-100); Mean Platelet Volume 11.7 fL (7.4-10.4); Monocytes # (auto) 1.06 K/uL (0.11-0.59); Monocytes % (auto) 8.6 %; Neutrophils # (auto) 9.91 K/uL (1.4-6.5); Neutrophils % (auto) 80.3 %; Platelet Count 223 K/uL (130-400); RDW Coefficient of Variation 14.4 % (11.5-14.5); RDW Standard Deviation 50.8 fL (36.4-46.3); Red Blood Count 3.77 M/uL (4.7-6.1); White Blood Count 12.34 K/uL (4.8-10.8)
[2019-08-20] MEDS: METOPROLOL SUCC 25MG EXT REL TAB PO SCH (08:15)
--- NOTE | 2019-08-20 10:08 | Cardiology Progress Note ---
Date of Service August 20, 2019 Assessment & Plan (1) Non-ST elevation ID (NSTEMI): His markers are trending downward suggesting an acute event recently. Curiously, did not have any symptoms of ischemic heart disease leading up to his admission. Think we worth evaluating his coronary anatomy and graft status. Tentatively were planning on coronary angiography tomorrow. We can address any high risk lesions at that time. With preserved LV systolic function, in the absence of symptoms, he may not require any intervention even if there is evidence of occlusive coronary disease. I think we can stop his heparin. Will start him on Plavix. We can consider discontinuing Plavix depending on his anatomy tomorrow. (2) Coronary artery disease: Risk still awaiting records regarding his prior cardiac care and his cardiac anatomy. He is not appear to be on anti-lipid therapy due to his relatively low lipid at baseline. He would still likely benefit from low-dose atorvastatin. Will continue aspirin. Will monitor him on beta-jr. (3) Aortic aneurysm: This can be monitored over time. Unclear if this was known prior to CT scanning performed yesterday. Again, he will need good blood pressure control and beta-blockade. (4) Hypertension: He continues to have elevated blood pressures I will start him on amlodipine. (5) Heart block AV first degree: He did have some Wenckebach conduction early this morning. We will need to continue monitoring closely while on beta-blockade. (6) Valvular heart disease: Moderate aortic regurgitation mild mitral regurgitation. Will monitor this over time. Admission and Anticipated Discharge Date Admission Date: August 18, 2019 Subjective This morning the patient claims to be feeling well. He did not endorse any symptoms of chest discomfort or breathing trouble. Not been aware of any palpitations. He is anxious to discuss plans moving forward and a possible discharge. Review of Systems Review of Systems: Per HPI Physical Exam Physical Exam: The patient is alert and oriented. Mood and affect appeared normal. He answered all questions appropriately. Obese HEENT: Pupils are equal and reactive to light and accommodation. Extraocular movements are intact. The sclerae are anicteric. Neuro: Cranial nerves intact Neck: Patient's neck is supple. He has palpable carotid pulses bilaterally with bilateral bruits versus radiation of aortic murmur. There is no evidence of jugular venous distention. The thyroid is not enlarged. Lungs: Clear to auscultation bilaterally. He has good air movement without use of accessory muscles. No rales wheezes or rhonchi. Cardiac: Heart demonstrates a regular rate and rhythm. Normal S1 and S2. Crescendo systolic murmur. Pulses: The patient has palpable radial pulses bilaterally that are equal in intensity Extremities: There was no evidence of hypoperfusion. There is no cyanosis or clubbing. Mild left lower extremity edema with more pronounced edema involving the right lower extremity.. Skin: I did not appreciate any rashes on examination today. Results & Data ([facility]) Vital Signs (Past 12 Hours) Vital Signs Temp Pulse Pulse Resp BP Pulse Ox 08/20/19 07:38 36.8 C 86 18 180/82 H 96 08/20/19 05:02 159/71 H 08/20/19 05:00 75 08/20/19 04:05 36.4 C L 93 H 18 189/80 H 94 08/19/19 23:01 36.9 C 88 18 166/62 H 96 Laboratory Results Abnormal Lab Results 08/19/19 08/19/19 08/20/19 09:50 18:35 01:38 WBC RBC Hgb Hct MCV MCH MCHC RDW Std Deviation RDW Coeff of Marisol Plt Count MPV Immature Gran % (Auto) Neut % (Auto) Lymph % (Auto) [place] % (Auto) Eos % (Auto) Baso % (Auto) Immature Gran # (Auto) Neut # (Auto) Lymph # (Auto) [place] # (Auto) Eos # (Auto) Baso # (Auto) APTT 37.0 H 32.8 H PTT Ratio 1.4 1.2 Sodium 136 Potassium 4.0 Chloride 106 Carbon Dioxide 24 Anion Gap 6.0 BUN 26 H Creatinine 1.31 Est Cr Clr Drug Dosing 55.5 Est GFR ( Amer) 59.6 Est GFR (Non-Af Amer) 51.4 BUN/Creatinine Ratio 19.9 Glucose 130 H Calcium 8.3 L Troponin I 6.900 H* 08/20/19 08/20/19 01:38 06:18 WBC 12.34 H RBC 3.77 L Hgb 12.1 L Hct 36.4 L MCV 96.6 MCH 32.1 MCHC 33.2 RDW Std Deviation 50.8 H RDW Coeff of Marisol 14.4 Plt Count 223 MPV 11.7 H Immature Gran % (Auto) 0.9 Neut % (Auto) 80.3 Lymph % (Auto) 10.0 [place] % (Auto) 8.6 Eos % (Auto) 0.1 Baso % (Auto) 0.1 Immature Gran # (Auto) 0.11 H Neut # (Auto) 9.91 H Lymph # (Auto) 1.24 [place] # (Auto) 1.06 H Eos # (Auto) 0.01 Baso # (Auto) 0.01 APTT 50.1 H* PTT Ratio 1.8 Sodium Potassium Chloride Carbon Dioxide Anion Gap BUN Creatinine Est Cr Clr Drug Dosing Est GFR ( Amer) Est GFR (Non-Af Amer) BUN/Creatinine Ratio Glucose Calcium Troponin I Diagnostic Findings Echocardiogram performed yesterday revealed preserved LV systolic function. Stage II diastolic dysfunction. Aortic valve sclerosis. Moderate aortic regurgitation. Mild mitral regurgitation. ECG Additional Comments: Patient does have a first-degree AV block at baseline. Wenckebach conduction was noted early this morning. PG Care Time/CCT Total # of Minutes Spent Total Time Spent with Patient: Total time spent is greater than 50% in coordination of care (as documented) at patient's floor/unit and/or counseling patient: Coding Level of Care Code 44058 Subseq Hosp Care Lvl 3 Diagnoses Non-ST elevation ID (NSTEMI) I21.4 Coronary artery disease I25.10 Aortic aneurysm I71.9 Hypertension I10 Heart block AV first degree I44.0 Valvular heart disease I38
[2019-08-20] MEDS ORDERED: AMLODIPINE BESYLATE 5 MG TAB PO ONE (10:15)
[2019-08-20] MEDS ORDERED: CLOPIDOGREL BISULFATE 300 MG TAB PO ONE (10:15)
--- NOTE | 2019-08-20 15:37 | Hospitalist Progress Note ---
Date of Service August 20, 2019 Assessment & Plan (1) Non-ST elevation [place] (NSTEMI): Troponin of 10 on admission with downtrend after. Given high elevation, we are assuming this represents a silent ACS (he never had symptoms of chest pain). Echo shows EF 55-60% with no regional wall motion abnormalities. - Seen by cardiology - Heparin gtt, ASA, beta-jr - Planning catheterization on Wednesday. We are attempting to get records of his CABG from [facility] in [place], [place]. (2) Coronary artery disease: History of CABG 3-4 years ago at [facility] in [place]. Moved to [place] recently to retire, so no records in chart at this time, and he cannot recall surgeon's name or number of vessels. - Continue meds as above (3) Hypertension: BP is as high as 185/75 in the setting of his NSTEMI and anxiety. Down to 150/70 today. - Continue metoprolol; consider adding calcium channel jr if continues to be high (4) Right leg swelling: This was actually the main issue he went to his PCP for. It is likely venous stasis from his CABG. The skin change coloration has been stable for the 2 days I have seen him. - Compression stockings (5) Aortic aneurysm: Echo this admission shows borderline aortic root dilation. - Outpatient follow up (6) BPH (benign prostatic hyperplasia): Patient only notes being on a "prostate medication." Unclear what it is. - Monitor symptoms; if severe, can straight cath, empirically start tamsulosin, or put in Lua. - No LUTS to date. (7) DVT prophylaxis: On heparin gtt for NSTEMI Admission and Anticipated Discharge Date Admission Date: August 18, 2019 Subjective No complaints this morning. He denies any chest pain. Right leg swelling is stable. Reports no fevers/chills, chest pain, shortness of breath, abdominal pain, nausea, or vomiting. Physical Exam Constitutional: WD/WN, vitals as above + obese and cooperative Eyes: EOM intact bilaterally; no conjunctival abnormality ENMT: external ear and nose normal, oropharynx normal Neck: trachea midline, no thyromegaly normal visual inspection Respiratory: normal respiratory effort, lungs clear to auscultation no respiratory distress Cardiovascular: RRR, no murmur, no edema Gastrointestinal (Abdomen): Inspection/Auscultation: abdomen normal to inspection; abdomen not distended Musculoskeletal: no cyanosis or clubbing, extremities motor strength 5/5 Skin: no rashes, warm and dry Neurologic: moves all extremities and awake Psychiatric: Orientation: alert, oriented to person and cooperative Affect: + anxious affect Results & Data ([facility]) Vital Signs (Past 12 Hours) Vital Signs Temp Pulse Pulse Resp BP Pulse Ox 08/20/19 12:10 36.6 C 75 18 152/72 H 93 08/20/19 07:38 36.8 C 86 18 180/82 H 96 08/20/19 05:02 159/71 H 08/20/19 05:00 75 08/20/19 04:05 36.4 C L 93 H 18 189/80 H 94 PG Care Time/CCT Total # of Minutes Spent Total Time Spent with Patient: Total time spent is greater than 50% in coordination of care (as documented) at patient's floor/unit and/or counseling patient: Coding Level of Care Code 37447 Subseq Hosp Care Lvl 3 Diagnoses Non-ST elevation [place] (NSTEMI) I21.4 Coronary artery disease I25.10 Hypertension I10 Right leg swelling M79.89 Aortic aneurysm I71.9 BPH (benign prostatic hyperplasia) N40.0 DVT prophylaxis Z29.9
[2019-08-21] MEDS ORDERED: HEPARIN (PORCINE) 1000 UNIT/ML 10 ML (CATH LAB USE ONLY) ONE (07:13)
[2019-08-21] MEDS ORDERED: MIDAZOLAM HCL 1 MG/ML 2ML VIAL ONE (07:13)
[2019-08-21] MEDS ORDERED: NiCARDipine HCL INJ 2.5 MG/ML 10 ML AMP ONE (07:13)
[2019-08-21] MEDS ORDERED: fentaNYL citrate 100 MCG/2 ML VIAL ONE (07:13)
[2019-08-21] MEDS ORDERED: NITROGLYCERIN/D5W 100MCG/ML 20ML SYR ONE (07:14)
--- NOTE | 2019-08-21 08:07 | Pre Anesthesia Assessment ---
Date of Service August 21, 2019 Pre Sedation Assessment Vital Signs Temp Pulse Pulse Resp BP Pulse Ox 08/21/19 07:30 90 20 194/79 H 95 08/21/19 03:13 36.7 C 59 L 18 161/66 H 93 08/21/19 00:13 36.5 C 56 L 18 152/66 H 94 08/20/19 23:31 55 L 08/20/19 20:00 36.6 C 56 L 18 148/64 H 99 08/20/19 16:04 36.8 C 90 18 173/91 H 92 08/20/19 12:10 36.6 C 75 18 152/72 H 93 Cardiovascular + regular rate Respiratory + respiratory effort normal Pre-Sedation Airway Assessment Smoking Status: Never smoker Hx Sleep Apnea: No Hx Difficult Intubation: No Short, Thick Neck: No Thyromental Distance: < 3.5 Finger Breadths Oral Cavity: + WNL Mallampati Class: II ASA: ASA3 NPO Status Date of Last Intake of Fluids: 08/20/19 Date of Last Intake of Solid Food: 08/20/19 Procedure Planning Contraindications for Sedation: none Current Medications Reviewed: Yes Notes The planned sedation has been discussed with the patient. Informed Consent was obtained. I have identified the patient, determined the appropriateness of sedation and have assessed the patient immediately prior to the procedure. All medicine(s) and interventions are by my order.
[2019-08-21] MEDS ORDERED: CLOPIDOGREL BISULFATE 75 MG TAB PO SCH (09:00)
[2019-08-21] MEDS ORDERED: AMLODIPINE BESYLATE 5 MG TAB PO SCH (09:00)
[2019-08-21] MEDS ORDERED: HydrALAZINE HCL 20 MG/ML VIAL ONE (09:45)
--- NOTE | 2019-08-21 09:50 | Post Operative Brief Note ---
Cardiology Brief Post Op Date of Surgery August 21, 2019 Pre & Post Diagnosis Operation Date: 08/21/19 09:30 <No data on this case meets the specified criteria> Procedure LHC, Cors, Grafts, Limited right femoral angiography Gem Technician Delroy Alonso MD Documentation Liaison none Estimated Blood Loss 20 Findings See Below severe ho-chunk coronary disease. Patent grafts. No obvious acute lesions. LVEDP mildly elevated. No intervention 6F angioseal closure No immediate complications Complications none Disposition Accompanied Patient To Recovery: No Disposition: PCU Overlapping Procedure I was immediately available: during the entire case.
[2019-08-21] MEDS ORDERED: ACETAMINOPHEN 325 MG TAB PO PRN (09:51)
--- NOTE | 2019-08-21 09:51 | Post Anesthesia Assessment ---
Date of Service August 21, 2019 Post Sedation Assessment Vital Signs Temp Pulse Pulse Resp BP Pulse Ox 08/21/19 07:30 90 20 194/79 H 95 08/21/19 03:13 36.7 C 59 L 18 161/66 H 93 08/21/19 00:13 36.5 C 56 L 18 152/66 H 94 08/20/19 23:31 55 L 08/20/19 20:00 36.6 C 56 L 18 148/64 H 99 08/20/19 16:04 36.8 C 90 18 173/91 H 92 08/20/19 12:10 36.6 C 75 18 152/72 H 93 Recovery Score Activity: Moves 4 extremities Respiration: Deep Breath/Cough Circulation: +/-20% PreAnes Value Consciousness: Fully Awake Oxygen Saturation: > 92% On Room Air Discharge Sedation Level of Care: Fast Track Phase II Post Sedation Plan On clinical assessment, the patient appears to have tolerated the sedation without complications. Patient is recovering as anticipated. Patient will continue to be monitored by nursing and may be discharged when sedation discharge criteria are met per below protocol. Upon Completions of procedure up to 15 minutes continue every 5 minute vital s igns and the P.A.R. score; then discharge to a Phase I or Fast Track to Phase II per the following guidelines: * Discharge Patient to appropriate Phase II area if PAR is 8 or greater or return to pre- procedure baseline. The post - procedure orders will be as directed. * If PAR score is less than 8 or not return to pre-procedure baseline then patient will follow Phase I monitoring till PAR is reached for Phase II. The Phase I may be done in procedure room or may call to secure a Phase I area. * If naloxone or flumazenil are used for reversal, hold in Phase I for continued monitoring from when last reversal dose was given for a minimum of 60 minutes or longer pending the nurse and/or physician discretion of patient condition before discharge to Phase II. Please call the Sedation Physician to re-evaluate and complete post-note for discharge to Phase II area. Do NOT discharge from procedure sedation or Phase 1 until post- sedation evaluation note is complete by procedure /sedation MD Sedation Discharge Instructions to be given to the patient at discharge to home.
[2019-08-21] MEDS ORDERED: SODIUM CHLORIDE 0.9% 1000ML 1,000 ML IV SCH (10:00)
[2019-08-21] MEDS: METOPROLOL SUCC 25MG EXT REL TAB PO SCH (10:37)
[2019-08-21 11:16] LABS: Basophils # (auto) 0.02 K/uL (0-0.2); Basophils % (auto) 0.1 %; Eosinophils # (auto) 0.02 K/uL (0-0.5); Eosinophils % (auto) 0.1 %; Hematocrit (blood only) 40.3 % (42-52); Hemoglobin 13.4 g/dL (14.0-18.0); Immature Granulocytes # (auto) 0.16 K/uL (0.00-0.02); Immature Granulocytes % (auto) 0.9 %; Lymphocytes # (auto) 1.12 K/uL (1.2-3.4); Lymphocytes % (auto) 6.6 %; Mean Corpuscular Hemoglobin 32.6 pg (25-34); Mean Corpuscular Hgb Conc 33.3 g/dL (32-36); Mean Corpuscular Volume 98.1 fL (80-100); Mean Platelet Volume 11.7 fL (7.4-10.4); Monocytes # (auto) 1.08 K/uL (0.11-0.59); Monocytes % (auto) 6.4 %; Neutrophils % (auto) 85.9 %; Platelet Count 202 K/uL (130-400); RDW Coefficient of Variation 14.4 % (11.5-14.5); RDW Standard Deviation 50.8 fL (36.4-46.3); Red Blood Count 4.11 M/uL (4.7-6.1)
[2019-08-21 11:31] LABS: Partial Thromboplastin Ratio 1.1; Partial Thromboplastin Time 28.9 Seconds (21.0-31.0)
[2019-08-21 11:41] LABS: BUN Creatinine Ratio 14.9 (10-20); Calcium 8.3 mg/dl (8.5-10.1); Est GFR (African American) 61.3; Est GFR (Non-African American) 52.9; Potassium 3.9 mmol/L (3.5-5.1)
--- NOTE | 2019-08-21 17:05 | Cardiology Progress Note ---
Date of Service August 21, 2019 Assessment & Plan (1) Non-ST elevation [place] (NSTEMI): Unclear why he had markedly elevated biomarkers. It is possible that he occluded a branch vessel that is no longer visible. However, there did not appear to be any acute lesions or high risk lesions on his angiography performed today. Think would be reasonable to discharge him on daily Plavix and aspirin and continue aggressive secondary prevention of coronary disease. He required femoral arterial access for angiography today. He should refrain from lifting over 10 lb or performing any strenuous activity for 7 days. (2) Coronary artery disease: He will be on dual anti-platelet therapy. I would recommend starting low- dose atorvastatin. (3) Aortic aneurysm: This can be monitored over time. Unclear if this was known prior to CT scanning performed yesterday. Again, he will need good blood pressure control (4) Hypertension: He continues to have elevated blood pressures I will start him on amlodipine. He will also be started on low-dose lisinopril. (5) Heart block AV first degree: He has had some higher degree heart blocks. He has 2-1 heart block at times he does known had Wenckebach behavior. Would defer use of beta-blockers in this setting. (6) Valvular heart disease: Moderate aortic regurgitation mild mitral regurgitation. Will monitor this over time. Admission and Anticipated Discharge Date Admission Date: August 18, 2019 Subjective This afternoon the patient was feeling well. He was anxious to ambulate. He did not report any symptoms at the groin access site. He denies any symptoms of chest discomfort. He is anxious for discharge. Review of Systems Review of Systems: Per HPI Physical Exam Physical Exam: Patient was alert and oriented. He answered all questions appropriately Respiratory effort was normal Examination of the right groin access site did not reveal any evidence of hematoma or bleeding. Results & Data ([facility]) Vital Signs (Past 12 Hours) Vital Signs Temp Pulse Resp BP BP Pulse Ox 08/21/19 16:20 36.5 C 68 20 135/68 146/69 H 96 08/21/19 16:03 36.5 C 68 20 146/69 H 96 08/21/19 15:05 36.7 C 69 20 118/72 96 08/21/19 14:00 36.7 C 79 16 135/68 96 08/21/19 13:00 78 18 173/74 H 96 08/21/19 12:00 16 178/86 H 96 08/21/19 11:27 62 16 150/70 H 100 08/21/19 10:44 64 18 176/72 H 93 08/21/19 10:30 57 L 16 190/104 H 97 08/21/19 10:15 62 16 164/63 H 97 08/21/19 10:00 81 18 183/78 H 94 08/21/19 07:30 90 20 194/79 H 95 Laboratory Results Abnormal Lab Results 08/21/19 08/21/19 08/21/19 10:45 10:45 10:45 WBC 17.00 H RBC 4.11 L Hgb 13.4 L Hct 40.3 L MCV 98.1 MCH 32.6 MCHC 33.3 RDW Std Deviation 50.8 H RDW Coeff of Marisol 14.4 Plt Count 202 MPV 11.7 H Immature Gran % (Auto) 0.9 Neut % (Auto) 85.9 Lymph % (Auto) 6.6 Coles % (Auto) 6.4 Eos % (Auto) 0.1 Baso % (Auto) 0.1 Immature Gran # (Auto) 0.16 H Neut # (Auto) 14.60 H Lymph # (Auto) 1.12 L Coles # (Auto) 1.08 H Eos # (Auto) 0.02 Baso # (Auto) 0.02 APTT 28.9 PTT Ratio 1.1 Sodium 138 Potassium 3.9 Chloride 106 Carbon Dioxide 25 Anion Gap 7.0 BUN 19 H Creatinine 1.28 Est Cr Clr Drug Dosing 57.0 Est GFR ( Amer) 61.3 Est GFR (Non-Af Amer) 52.9 BUN/Creatinine Ratio 14.9 Glucose 122 H Calcium 8.3 L Diagnostic Findings Patient underwent coronary angiography today which revealed patent bypass grafts. He currently has a COBURN to a diagonal and LAD, a vein graft to an obtuse marginal and a vein graft to the posterior descending artery. There was severe [place] coronary disease with occlusion of the left anterior descending after a 2nd diagonal branch. The right coronary artery was heavily diseased throughout its course. There is not appear to be any acute lesions or high risk lesions. PG Care Time/CCT Total # of Minutes Spent Total Time Spent with Patient: Total time spent is greater than 50% in coordination of care (as documented) at patient's floor/unit and/or counseling patient: Coding Level of Care Code 49684 Subseq Hosp Care Lvl 3 Diagnoses Non-ST elevation [place] (NSTEMI) I21.4 Coronary artery disease I25.10 Aortic aneurysm I71.9 Hypertension I10 Heart block AV first degree I44.0 Valvular heart disease I38
--- NOTE | 2019-08-21 20:58 | Billing Data ---
Date of Service August 21, 2019 Coding Level of Care Code 39009 Initial Inpt Care Lvl 3
--- NOTE | 2019-09-04 00:33 | Discharge Summary ---
Date of Service August 21, 2019 Admission HPI Per Admitting Provider Mr. Voss is a 78yo male with a PMHx significant for Hx of CABG with stent placement 3-4 years ago in [place], HTN, HLD, BPH who was sent over from [facility] after he presented with concern for a swollen right lower extremity. Pt states he does not recall having chest pain today at all, nor SOB. States there was nothing out of the ordinary except the noted swelling in his lower extremities. Recently moved a few months ago from [place], [place]. States he graduated from [employer] and wanted to retire here. 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 PMH: HTN, HLD, BPH, denies ever having an [place] but states he had "open heart surgery" with stent placment 3-4 years a go (see below) PSH: Hx of CABG Allergies: NKDA Fam Hx: Mom from kidney disease, dad, unsure health Hx. No children. Unsure sibling health Hx. SH: Lives at [facility], retired. Smoked for about 2 years over 40 years ago, few cigarettes sporadically. Occasional wine drinker, no recreational drug use. Was very active in his younger years biking, now walks around [facility] property. ED Course: Heparin bolus and started on heparin drip, aspirin 324mg Principal Diagnosis NSTEMI Discharge Exam Constitutional: WD/WN, vitals as above + obese and cooperative Eyes: EOM intact bilaterally; no conjunctival abnormality ENMT: external ear and nose normal, oropharynx normal Neck: trachea midline, no thyromegaly normal visual inspection Respiratory: normal respiratory effort, lungs clear to auscultation no respiratory distress Cardiovascular: RRR, no murmur, no edema Gastrointestinal (Abdomen): Inspection/Auscultation: abdomen normal to inspection; abdomen not distended Musculoskeletal: no cyanosis or clubbing, extremities motor strength 5/5 Skin: no rashes, warm and dry Neurologic: moves all extremities and awake Psychiatric: Orientation: alert, oriented to person and cooperative Discharge Data Allergies Allergy/AdvReac Type Severity Reaction Status Date / Time No Known Allergies Allergy Unverified 08/25/19 17:47 Consultations 08/18/19 19:19 ED Decision to Admit Stat 08/19/19 08:53 Consult Cardiology Routine 08/19/19 13:31 Consult Health Information Management Routine Procedures Performed Operation Date: 08/21/19 09:30 Actual Procedures p Cath, Left w/Cors Vent Grafts - Orlando Alonso MD s Cineradiography w/Routine Exam - MD dyan Pineda Placement Art Occlusive Device - Orlando Alonso MD Ordered Studies 08/18/19 17:29 CT angio chest PE protocol Stat 08/21/19 06:51 CL Cath Imgs for PACS use only Routine Hospital Course (1) Acute coronary syndrome: Pt is a 78yo male with a PMHx significant for Hx of CABG with stent placement 3-4 years ago in [place], HTN, HLD, BPH who was sent over from [facility] after he presented with concern for a swollen right lower extremity. Acute coronary syndrome -Pt denied any prior chest pain or SOB, has none currently -Pt with noted ST segment elevations in inferior leads on EKG, since resolved. -Troponin elevated to 10.2; will trend q6h -Echo pending -aspirin 324mg given in ED -continue nitrobid 2.5mg BID scheduled -continue heparin drip; bolus given in ED -pt unsure of home hypertension med; will start on metoprolol succinate 25mg daily -can start OLIMPIA 24hrs after presentation -will admit to PCU/tele for continued monitoring -given resolution of EKG changes, pt will be taken to confectionery laboratory manager in AM. Has Hx of prior CABG 3-4 years ago in hospital, unsure hospital or number of stents placed. On day of discharge: cardio evaluated patient and stated the following: (1) Non-ST elevation [place] (NSTEMI): Unclear why he had markedly elevated biomarkers. It is possible that he occluded a branch vessel that is no longer visible. However, there did not appear to be any acute lesions or high risk lesions on his angiography performed today. Think would be reasonable to discharge him on daily Plavix and aspirin and continue aggressive secondary prevention of coronary disease. He required femoral arterial access for angiography today. He should refrain from lifting over 10 lb or performing any strenuous activity for 7 days. (2) Coronary artery disease: He will be on dual anti-platelet therapy. I would recommend starting low- dose atorvastatin. RJ -pt with noted baseline cr of 1.32 in Nov -elevated on admision, back to baseline at discharge. Right lower extremity swelling -Pt presented to [facility] doctor for evaluation -States this is the site of venous grafting for his CABG -RLE doppler showed no evidence of DVT -no concern for infection currently -continue to monitor Elevated D-Dimer -D-dimer elevated to 3110 -As above, no evidence of DVT in RLE -CTA with no noted PE, but did note cardiomegaly without thromboembolic disease, mild bronchial wall thickening, fusiform dilation of ascending thoracic aorta. HTN -pt unsure of home medication and dosage -started here on metoprolol succinate 25mg daily as above BPH -pt states he is on home finasteride. -will re-start once home dose confirmed. HLD -pt states he has this history and is on a home statin -recent lipid panel unremarkable -Carotid doppler 05/22/19: >70% stenosis of R internal carotid, 50-69% stenosis of L internal carotid -Neck CTA showed stenosis of R vertebral artery Total Time Total Time Spent Total Time Spent (In Minutes): 35 Total Time Includes: Examination of the Patient, Discharge Planning and Medication Reconciliation Discharge Plan Discharge Items Patient Disposition: Home - Self-Care Reason For Visit: ACUTE CORONARY SYNDROME Discharge Diagnosis: Acute Coronary Syndrome Activity: Resume your previous activity Non-emergency contact: Primary Care Provider Call non-emergency contact if: you have any medication questions Follow-up/Referrals: Hayden Arnett [Primary Care Provider] - 08/24/19 1:30 am Diet: Heart Healthy and Low Sodium (2gm) Addtl Attending Provider Instructions: Instructions for going home after Cardiac Catheterization Care for the Catheter Insertion Site Procedures may be performed in the femoral artery in the groin (in the area at the top of your thigh) or in the radial artery in your arm. When you go home, there will be a bandage (dressing) over the catheter insertion site (also called the wound site). The morning after your procedure, you may take the dressing off. The easiest way to do this is when you are showering, get the tape and dressing wet and remove it. After the bandage is removed, cover the area with a small adhesive bandage. It is normal for the catheter insertion site to be black and blue for a couple of days. The site may also be slightly swollen and pink, and there may be a small lump (about the size of a quarter) at the site. Wash the catheter insertion site at least once daily with soap and water. Place soapy water on your hand or washcloth and gently wash the insertion site; do not rub. Keep the area clean and dry when you are not showering. Do not use creams, lotions or ointment on the wound site. Wear loose clothes and loose underwear. Do not take a bath, tub soak, go in a Jacuzzi, or swim in a pool or ye for one week after the procedure. Activity Guidelines In general, you will need to take it easy for the first two days after you get home. You can expect to feel tired and weak the day after the procedure. Take walks around your house and plan to rest during the day. For femoral cardiac cath Do not strain during bowel movements for the first 3 to 4 days after the procedure to prevent bleeding from the catheter insertion site. Avoid heavy lifting (more than 10 pounds) and pushing or pulling heavy objects for the first 5 to 7 days after the procedure. Do not participate in strenuous activities for 5 days after the procedure. This includes most sports - jogging, golfing, play tennis, and bowling. You may climb stairs if needed, but walk up and down the stairs more slowly than usual. Gradually increase your activities until you reach your normal activity level within one week after the procedure. Home Care: * Take your medications exactly as directed. Don't skip doses. * Remember that recovery after a heart attack takes time. Plan to rest for at lease 4-8 weeks while you recover. Then return to normal activity when your doctor says it's okay. * Ask your doctor about joining a heart rehabilitation program. * Tell your doctor if you are feeling depressed. Feelings of sadness are common after a heart attack, but it is important that you speak to someone if you are feeling overwhelmed by these feelings. * If you are having chest pain, call 911 for an ambulance. Do NOT drive yourself to the hospital. * Ask your family members to learn CPR. * Learn to take your own blood pressure and pulse. Keep a record of your results. Ask your doctor when you should seek emergency medical attention. He or she will tell you which blood pressure reading is dangerous. Lifestyle Changes: * Maintain a healthy weight. Get help to lose any extra pounds. * Cut back on salt. * Limit canned, dried, packaged, and fast foods. * Don't add salt to your food. * Season foods with herbs instead of salt when you cook. * Break the smoking habit. Enroll in a stop-smoking program to improve your chances of success. * Limit fatty foods. * Ask your doctor about having your lipid levels checked regularly. * Build up your activity according to your doctor's recommendation. * Ask your doctor when it's okay to resume sexual activity. * Tell your doctor about any erectile dysfunction (ED) medication you are taking. Some ED medications are not safe if you take certain heart medications. * Try to manage stress. Follow Up: It is important for you to keep your follow up appointments with your medical provider. Pending Studies at Discharge: Yes Stand-Alone Forms: My [facility] [address], Smoking Cessation Medications and DC Order Prescriptions: Continued aspirin 81 mg Tablet,Delayed Release (Dr/Ec) 81 mg PO DAILY RF: 0 cholecalciferol (vitamin D3) [Vitamin D3] 25 mcg (1,000 unit) Tablet 1,000 unit PO DAILY RF: 0 Discontinued Blood Pressure Medication 1 tab PO DAILY RF: 0 No Action finasteride [Proscar] 5 mg Tablet 5 mg PO DAILY RF: 0 coenzyme Q10 [CoQ-10] 100 mg Capsule 100 mg PO DAILY RF: 0 atorvastatin [Lipitor] 10 mg tablet 10 mg PO HS RF: 0 clopidogrel [Plavix] 75 mg tablet 75 mg PO QAM RF: 0 lisinopril [Zestril] 2.5 mg tablet 2.5 mg PO HS RF: 0 doxycycline hyclate 100 mg Capsule 100 mg PO BID Qty: 1 RF: 0 isosorbide mononitrate 60 mg Tablet Extended Release 24 Hr 60 mg PO QAM Qty: 1 RF: 0 pantoprazole 40 mg Tablet,Delayed Release (Dr/Ec) 40 mg PO QAM Qty: 1 RF: 0 furosemide 20 mg Tablet 20 mg PO QAM Qty: 1 RF: 0 amlodipine [Norvasc] 5 mg Tablet 10 mg PO QAM Qty: 30 RF: 0 Discharge Orders: Discharge Order (Routine); Ordered 08/21/19 Ordered By: Julio César Meraz Admission Data Admit Date/Time: 08/18/19 20:13 Attending Provider: Julio César Meraz Admit Provider: Marisela Caballero Primary Care Provider: Hayden Arnett Other Providers: Shayne Hernandez ; Orlando Alonso Other Interventions: Discharge Summary Assessment (RN) Last Done: 08/21/19 16:20 DC Date/Time DO NOT enter until pt leaves facility: 08/21/19 17:14 Coding Level of Care Code D/C Day Management >30 mins Diagnoses Acute coronary syndrome I24.9
== END 2019-08-21 17:14 | disposition home or self-care (01) | DRG 281 ==
LOC: ED 15:30 → 2S 20:13 → SUATTDRO 20:13 → 2S 20:40

== ENCOUNTER 2019-08-25 16:34 | Inpatient (IN) ==
--- NOTE | 2019-08-25 21:01 | XRay Report ---
XR chest 1V not portable HISTORY: leukocytosis COMPARISON: Chest CTA 08/18/2019. FINDINGS: No pneumothorax. No pleural effusions. No new focal lung consolidations to suggest pneumoni a. There is diffuse interstitial thickening. The heart remains enlarged. Poststernotomy changes. IMPRESSION: Cardiomegaly with mild diffuse interstitial thickening. This suggests mild congestive change. ACT 112: Negative or not required by law. Electronically signed by: Richard Mora M.D. 08/25/2019 8:59 PM
[2019-08-25] MEDS ORDERED: IOVERSOL 100ml IV PRN (21:28)
[2019-08-25] MEDS ORDERED: ACETAMINOPHEN 1,000 MG/100 ML VIAL IV STA (21:37)
--- NOTE | 2019-08-25 21:49 | CT Scan Report ---
ABDOMEN AND PELVIS CT WITH IV CONTRAST CT DOSE: 1560.77 mGy.cm HISTORY: Generalized abd pain, leukocytosis TECHNIQUE: Multiaxial CT images of the abdomen and pelvis were performed following the use of intrave nous contrast. A dose lowering technique was utilized adhering to the principles of ALARA. COMPARISON STUDY: None. FINDINGS: Trace left pleural effusion. Patchy densities at the lung bases posteriorly favor mild depe ndent change. No pneumoperitoneum. No pneumatosis. No fractures within the visualized osseous structu res. The liver, gallbladder, and adrenal glands unremarkable. There are few small bilateral renal hyp odense lesions. The majority of these are subcentimeter in size is too small to catheterize. The larg est on the left measures 1.8 cm and likely represents a cyst. No hydronephrosis. The main portal vein is patent. No retroperitoneal lymphadenopathy. There is mild thickening of the second and third port ions of the duodenum with mild surrounding inflammatory change. The inflammatory change also surround s the uncinate process of the pancreas. Small fat-containing left inguinal hernia. Moderate right ing uinal hernia containing fat and the anterior aspect of the bladder. No evidence for bowel obstruction . Colonic diverticulosis. No evidence for acute diverticulitis. Subcutaneous fat stranding within the right groin. This may be due to prior intervention. A 1.9 cm hypodense lesion within the inferior as pect of the spleen. This is technically indeterminate on this single phase study but statistically be nign. IMPRESSION: 1. Mild thickening of the second and third portion of the duodenum with mild surrounding inflammatory change. The inflammatory change also surrounds the uncinate process of the pancreas. Therefore, this could represent a duodenitis/peptic ulcer disease or an acute pancreatitis. Endoscopy and/or pancrea tic enzymes should be performed for further evaluation. 2. Trace left pleural effusion. 3. Moderate size right inguinal hernia containing fat in the anterior bladder. 4. Additional findings as described above. ACT 112: Negative or not required by law. Electronically signed by: Richard Mora M.D. 08/25/2019 9:48 PM
[2019-08-25] MEDS ORDERED: VANCOMYCIN HCL 2,250 MG in SODIUM CHLORIDE 0.9% 500 ML IV ONE (22:13)
[2019-08-25] MEDS ORDERED: CEFEPIME 2,000 MG/20 ML VIAL IV STA (22:13)
[2019-08-25] MEDS ORDERED: VANCOMYCIN CONSULT ACTIVE PRN (22:13)
--- NOTE | 2019-08-25 23:09 | History & Physical Report ---
Date of Service August 25, 2019 Assessment & Plan (1) Confusion and disorientation: Confusion and disorientation/progressive leukocytosis- Unclear etiology at this time. CT of abdomen pelvis suggest possible duodenitis/peptic ulcer disease/pancreatitis. Possible diagnosis of endocarditis, and will be empirically treated for now. Present on Admission?: Yes (2) Duodenitis: Patient complained of vague abdominal pain. CT of abdomen pelvis suggested possible duodenitis/peptic ulcer disease/pancreatitis, with normal lipase. Will keep patient n.p.o. for now. Placed on famotidine 20 mg IV every 12 hours. Consult gastroenterology, question need for EGD. Present on Admission?: Yes (3) Pancreatitis: See above Present on Admission?: Yes (4) Coronary artery disease: CAD/hypertension/moderate aortic regurgitation/mild mitral regurgitation/N STEMI on 08/18/2019/grade 2 diastolic dysfunction/patent CABG vessels- Hold amlodipine, aspirin, clopidogrel and lisinopril for now until determined if EGD and/or MARILYNN would need to be performed Patient did have transthoracic echocardiogram performed on 08/19/2019. We will consult cardiology and ask them to review and determine if patient needs a MARILYNN to assess for possible endocarditis as a cause of his progressive leukocytosis and now altered mental state. He will be placed on IV antibiotics to cover possible endocarditis in the interim Present on Admission?: Yes (5) Hypertension: See above Present on Admission?: Yes (6) Moderate aortic regurgitation: See above Present on Admission?: Yes (7) Mild mitral regurgitation: See above Present on Admission?: Yes (8) Grade II diastolic dysfunction: See above Present on Admission?: Yes (9) H/O cardiac catheterization: See above Present on Admission?: Yes (10) Non-ST elevation IN (NSTEMI): See above Present on Admission?: Yes (11) Cellulitis of right lower extremity without foot: Will be covered with antibiotics vancomycin IV and cefepime IV as noted above Present on Admission?: Yes History of Present Illness Chief Complaint: The patient is referred to the emergency department by the outpatient office due to an increasing white blood cell count with unclear etiology. Primary Care Provider: Leo Mcknight on 08/21/2019The patient is AN 79-year-old male with a past medical history including CAD, hypertension, hyperlipidemia, CABG, stent placement 3 to 4 years ago, and BPH. He was most recently admitted to [facility] from 08/18- 08/21/2019 with an elevated troponin and reversible ischemic changes in inferior leads. He underwent cardiac catheterization via right femoral access, was found to have severe [place] coronary disease, patent grafts, no obvious acute lesions and LVEDP mildly elevated. He was discharged on aspirin and Plavix at that time, with plan to follow-up in the outpatient setting. He did have laboratories performed earlier in the day as an outpatient, and was found to have elevated white blood cell count, which had progressed from previous hospitalization, and he was sent to the ED for further assessment. The patient, while in ED, was noted to have alteration in mental status, appearing quite confused and disoriented, which was completely different from his cognitive status when I had admitted him on 08/18. He did report some vague abdominal discomfort, and underwent CT of abdomen pelvis suggestive of duodenitis versus peptic ulcer disease versus pancreatitis. The patient was also noted to have a chronic right lower extremity dermatitis, which appeared to be developing more erythema during his emergency department stay. The patient was started on vancomycin IV and cefepime IV while in the ED, with plans for admission for further diagnosis and treatment. Allergies Allergy/AdvReac Type Severity Reaction Status Date / Time No Known Allergies Allergy Unverified 08/25/19 17:47 Home Medications Home Medications Medication Instructions Recorded Confirmed Type aspirin 81 mg PO DAILY 08/18/19 08/25/19 History cholecalciferol (vitamin D3) 1,000 unit PO DAILY 08/18/19 08/25/19 History [Vitamin D3] amlodipine [Norvasc] 5 mg PO QAM #30 tab 08/21/19 08/25/19 Rx atorvastatin [Lipitor] 10 mg PO HS 08/25/19 08/25/19 History calcium carbonate [Calcium 500] 500 mg PO DAILY 08/25/19 08/25/19 History clopidogrel [Plavix] 75 mg PO QAM 08/25/19 08/25/19 History coenzyme Q10 [CoQ-10] 100 mg PO DAILY 08/25/19 08/25/19 History finasteride [Proscar] 5 mg PO DAILY 08/25/19 08/25/19 History lisinopril [Zestril] 2.5 mg PO HS 08/25/19 08/25/19 History rosuvastatin 20 mg PO DAILY 08/25/19 08/25/19 History Past Med/Surg History Medical History Aortic aneurysm BPH (benign prostatic hyperplasia) Costochondritis Hypertension Non-ST elevation IN (NSTEMI) (Inactive) Surgical History H/O cardiac catheterization Family History Other No pertinent family history in first degree relatives Social History Preferred Language: Mongolian Communication Ability: Effective [employer] Required: No Beliefs That Will Affect Care: None marital status: Single Current Living Situation: Personal Care Facility Feels Safe at Home: Yes Smoking Status: Never smoker Hx Alcohol Use: No Hx Substance Use: No Review of Systems Review of Systems: Unobtainable due to cognitive status The patient was able to give a partial history, but was not felt to be completely reliable, but of note did report discomfort vaguely in his abdomen and pelvis. Physical Exam Physical Exam: The patient is awake, disoriented, well developed and well nourished, normocephalic and atraumatic, lying in bed and in no acute distress. HEENT--PERRL, EOMI, mucous membranes and oropharynx very dry. Neck--supple. No JVD. No bruits. Thyroid normal, trachea midline, no adenopathy. Heart--normal S1 and S2. No murmurs, rubs or gallops. Lungs--clear bilaterally, no respiratory distress, no accessory muscle use. Abdomen--normal bowel sounds and soft. Nontender. Nondistended. Morbidly obese Extremities--right lower extremity with chronic eczematous dermatitis type changes, with developing overlying erythema. Dermatologic--as above Neurologic--cranial nerves II through XII grossly intact. Rheumatologic--normal range of motion. Psychiatric--confused and lethargic Results & Data Vital Signs (Past 12 Hours) Vital Signs Temp Pulse Resp BP Pulse Ox 08/25/19 22:30 62 18 149/56 H 90 08/25/19 22:00 76 19 179/72 H 93 08/25/19 21:44 99.3 F 08/25/19 21:00 70 12 174/69 H 92 08/25/19 20:00 65 14 168/61 H 94 08/25/19 19:42 61 19 179/53 H 95 08/25/19 18:40 62 24 164/56 H 95 08/25/19 16:43 98.1 F 73 18 159/71 H 95 Laboratory Results Laboratory Results Lactate 1.1 mmol/L (0.4-2.0) 08/25/19 19:38 Troponin I 0.551 ng/ml (0-0.045) H* 08/25/19 19:03 Lipase 112 U/L (73-393) 08/25/19 19:40 Procalcitonin 0.13 ng/ml (0-0.5) 08/25/19 19:38 Diagnostic Findings [facility] [place], [place] [phone] XRay Report Patient: TULIO BECKMAN Date: 08/25/19 MR#: [id number]: [address] Acct ID:[id number]: [facility]: 1940[facility] Zip[facility] [place] [address] Age: 78Location: ED Sex: M Room/Bed: Att Phy:Diagnosis: ABN LABS- CARDIAC HX [facility]: [facility] Fam Phy:Interpreting Phy: Richard Mora MD Admit Phy: Ordering Phy: Karen Alex DO cc: ~ XR chest 1V not portable HISTORY: leukocytosis COMPARISON: Chest CTA 08/18/2019. FINDINGS: No pneumothorax. No pleural effusions. No new focal lung consolidations to suggest pneumonia. There is diffuse interstitial thickening. The heart remains enlarged. Poststernotomy changes. IMPRESSION: Cardiomegaly with mild diffuse interstitial thickening. This suggests mild congestive change. ACT 112: Negative or not required by law. Electronically signed by: Richard Mora M.D. 08/25/2019 8:59 PM Dictated: 08/25/192058 Transcribed: 08/25/192058 [place], [place] [phone] CT Scan Report Patient: TULIO BECKMAN Date: 08/25/19 MR#: [id number]: [address] Acct ID:[id number]: LEO MCKNIGHT [facility]: 1940[facility] Zip: [place] [id number] Age: 78Location: ED Sex: M Room/Bed: Att Phy:Diagnosis: ABN LABS- CARDIAC HX Radha Phy: [facility] Date: 08/25/19 Fam Phy:Interpreting Phy: Richard Mora MD Admit Phy: Ordering Phy: Karen Alex DO cc: ~ ABDOMEN AND PELVIS CT WITH IV CONTRAST CT DOSE: 1560.77 mGy.cm HISTORY: Generalized abd pain, leukocytosis TECHNIQUE: Multiaxial CT images of the abdomen and pelvis were performed following the use of intravenous contrast. A dose lowering technique was utilized adhering to the principles of ALARA. COMPARISON STUDY: None. FINDINGS: Trace left pleural effusion. Patchy densities at the lung bases posteriorly favor mild dependent change. No pneumoperitoneum. No pneumatosis. No fractures within the visualized osseous structures. The liver, gallbladder, and adrenal glands unremarkable. There are few small bilateral renal hypodense lesions. The majority of these are subcentimeter in size is too small to catheterize. The largest on the left measures 1.8 cm and likely represents a cyst. No hydronephrosis. The main portal vein is patent. No retroperitoneal lymphadenopathy. There is mild thickening of the second and third portions of the duodenum with mild surrounding inflammatory change. The inflammatory change also surrounds the uncinate process of the pancreas. Small fat-containing left inguinal hernia. Moderate right inguinal hernia containing fat and the anterior aspect of the bladder. No evidence for bowel obstruction. Colonic diverticulosis. No evidence for acute diverticulitis. Subcutaneous fat stranding within the right groin. This may be due to prior intervention. A 1.9 cm hypodense lesion within the inferior aspect of the spleen. This is technically indeterminate on this single phase study but statistically benign. IMPRESSION: 1. Mild thickening of the second and third portion of the duodenum with mild surrounding inflammatory change. The inflammatory change also surrounds the uncinate process of the pancreas. Therefore, this could represent a duodenitis/peptic ulcer disease or an acute pancreatitis. Endoscopy and/or pancreatic enzymes should be performed for further evaluation. 2. Trace left pleural effusion. 3. Moderate size right inguinal hernia containing fat in the anterior bladder. 4. Additional findings as described above. ACT 112: Negative or not required by law. Electronically signed by: Richard Mora M.D. 08/25/2019 9:48 PM Dictated: 08/25/192139 Transcribed: 08/25/192139 Code Status & VTE Plan Code Status Full code VTE Prophylaxis Plan VTE Prophylaxis will be ordered: Yes PG Care Time/CCT Total # of Minutes Spent Total Time Spent with Patient: Total time spent is greater than 50% in coordination of care (as documented) at patient's floor/unit and/or counseling patient: Coding Level of Care Code 51169 Initial Inpt Care Lvl 3 Diagnoses Confusion and disorientation R41.0 Duodenitis K29.80 Pancreatitis K85.90 Acute pancreatitis complication: unspecified Chronicity: acute Pancreatitis type: unspecified pancreatitis type Coronary artery disease I25.10 Hypertension I10 Moderate aortic regurgitation I35.1 Mild mitral regurgitation I34.0 Grade II diastolic dysfunction I51.9 H/O cardiac catheterization Z98.890 Non-ST elevation IN (NSTEMI) I21.4 Cellulitis of right lower extremity without foot L03.115 (1) Pancreatitis Acute pancreatitis complication: unspecified Chronicity: acute Pancreatitis type: unspecified pancreatitis type Qualified Code(s): K85.90 - Acute pancreatitis without necrosis or infection, unspecified
--- NOTE | 2019-08-25 23:46 | Emergency Department Note ---
Entered by Terrie Mtz acting as a scribe for History of Present Illness General Chief complaint: Abnormal Labs/Diagnostic Testing Stated complaint: ABN LABS- CARDIAC HX Time Seen by Provider: 08/25/19 16:47 Source: patient Mode of arrival: ambulatory Limitations: no limitations History of Present Illness Provider complaint: Elevated white blood cell count Onset (ago): hour(s) (a few days ago) Pain Consistency: + other (rising) Maximum Pain Intensity: 0 Quality: + other (elevated white blood cell count) Associated symptoms: + chest pain (intermittent), + loss of appetite (slight) and + other (Denies: cold, change in bowel movements, urinary symptoms); no cough, no fever/chills and no rash Treatments prior to arrival: none The patient is a 78 year old male with a history of a cardiac catheterization, costochondritis, aortic aneurysm, valvular heart disease, NSTEMI, and hypertension who presents to the Emergency Room with complaints of an elevated white blood cell count starting a few days ago. The patient reports that he was here a few days ago for exertional chest pain and was found to have an elevated white blood cell count at this time. He states that the Hayden RIVERA found that his white blood cell count has continued to rise on outpatient labs in follow- up, so he was referred to the ED again today. The patient also complains of per sistent intermittent chest pain and a slightly decreased appetite but denies any cough, cold, change in bowel movements, urinary symptoms, rashes, fevers, and chills. The patient recalls no recent steroid use and sick contact. He mentions that his cardiac catheterization was inserted into his groin. Home Medications Home Medications Medication Instructions Recorded Confirmed Type aspirin 81 mg PO DAILY 08/18/19 08/25/19 History cholecalciferol (vitamin D3) 1,000 unit PO DAILY 08/18/19 08/25/19 History [Vitamin D3] amlodipine [Norvasc] 5 mg PO QAM #30 tab 08/21/19 08/25/19 Rx atorvastatin [Lipitor] 10 mg PO HS 08/25/19 08/25/19 History calcium carbonate [Calcium 500] 500 mg PO DAILY 08/25/19 08/25/19 History clopidogrel [Plavix] 75 mg PO QAM 08/25/19 08/25/19 History coenzyme Q10 [CoQ-10] 100 mg PO DAILY 08/25/19 08/25/19 History finasteride [Proscar] 5 mg PO DAILY 08/25/19 08/25/19 History lisinopril [Zestril] 2.5 mg PO HS 08/25/19 08/25/19 History rosuvastatin 20 mg PO DAILY 08/25/19 08/25/19 History Allergies Allergy/AdvReac Type Severity Reaction Status Date / Time No Known Allergies Allergy Unverified 08/25/19 17:47 Past Med/Surg History Medical History Aortic aneurysm BPH (benign prostatic hyperplasia) Costochondritis Grade II diastolic dysfunction Hypertension Mild mitral regurgitation Moderate aortic regurgitation Non-ST elevation WI (NSTEMI) on 08/18/2019 Surgical History H/O cardiac catheterization on 08/21/2019 Family History Other No pertinent family history in first degree relatives Social History Preferred Language: German Communication Ability: Effective Oil 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 and A total of 10 systems reviewed and were otherwise negative Physical Exam Vital Signs Vital Signs - 24 hr 08/25/19 16:43 08/25/19 18:40 08/25/19 19:42 Temperature 36.7 C Temperature Source Oral Pulse Rate 73 62 61 Pulse Rate from SpO2 Sensor 62 66 Respiratory Rate 18 24 19 Respiratory Effort / Characteristics Non-Labored Spontaneous Respiratory Depth Normal Respiratory Pattern Regular Blood Pressure 159/71 H 164/56 H 179/53 H Blood Pressure Mean 100 98 82 Blood Pressure Position Sitting Pulse Oximetry 95 95 95 Oxygen Delivery Method Room Air Room Air Room Air Sepsis Recent Fever Within 48 Hours No Sepsis New/Unexplained Change in Mental Status No Sepsis Action Taken by Nursing No Action Required 08/25/19 20:00 08/25/19 21:00 08/25/19 21:44 Temperature 37.4 C Temperature Source Oral Pulse Rate 65 70 Pulse Rate from SpO2 Sensor 65 80 Respiratory Rate 14 12 Respiratory Effort / Characteristics Respiratory Depth Respiratory Pattern Blood Pressure 168/61 H 174/69 H Blood Pressure Mean 95 76 Blood Pressure Position Pulse Oximetry 94 92 Oxygen Delivery Method Sepsis Recent Fever Within 48 Hours Sepsis New/Unexplained Change in Mental Status Sepsis Action Taken by Nursing 08/25/19 22:00 08/25/19 22:30 Temperature Temperature Source Pulse Rate 76 62 Pulse Rate from SpO2 Sensor 91 H 62 Respiratory Rate 19 18 Respiratory Effort / Characteristics Respiratory Depth Respiratory Pattern Blood Pressure 179/72 H 149/56 H Blood Pressure Mean 95 106 Blood Pressure Position Pulse Oximetry 93 90 Oxygen Delivery Method Room Air Room Air Sepsis Recent Fever Within 48 Hours Sepsis New/Unexplained Change in Mental Status Sepsis Action Taken by Nursing GENERAL: alert, well appearing, well nourished, no distress, non-toxic EYE EXAM: normal conjunctiva, PERRL and EOM's grossly intact OROPHARYNX: no exudate, no erythema, lips, buccal mucosa, and tongue normal and mucous membranes are dry NECK: supple, no nuchal rigidity, no adenopathy, non-tender LUNGS: Clear to auscultation. Normal chest wall mechanics, no w/r/r HEART: no murmurs, S1 normal and S2 normal ABDOMEN: abdomen soft, non-tender, normo-active bowel sounds, no masses, no rebound or guarding. BACK: Back is symmetrical on inspection and there is no deformity, no midline tenderness, no CVA tenderness. SKIN: no rashes and no bruising UPPER EXTREMITIES: upper extremities are grossly normal. FROM, nml pulses b/l. LOWER EXTREMITIES: No pitting edema. FROM, nml pulses b/l. NEURO EXAM: Normal sensorium, cranial nerves II-XII grossly intact, normal speech, no gross weakness of arms, no gross weakness of legs. Gross sensation intact. Course Course 1652: The patient was evaluated in room B7, and a complete history and physical examination were performed. 1915: I spoke to the patient's family over the phone at this time. 2005: I checked on the patient and updated him on the plan. He is agreeable to a chest x-ray. 2057: I reevaluated the patient and updated him on his results at this time. Patient now seems more forgetful, and slightly confused to certain things we have discussed on previous rechecks. 2203: I reviewed the patient's case with Dr. Shea - Hospitalist. Dr. Shea will evaluate the patient for further management. He agrees with plan for antibiotic coverage at this time. He would also like a CT of the head added given worsening confusion. Consultations Consultation #1: I reviewed the patient's case with Dr. Shea - Hospitalist. Dr. Shea will evaluate the patient for further management. Time: 22:03 Administered Medications Albuterol (Duoneb) 3 ml NEB Q4R BRIJESH Stop: 09/26/19 02:59 Last Admin: 08/27/19 22:07 Dose: 3 ml Documented by: [id number] Admin: 08/27/19 19:12 Dose: 3 ml Documented by: [id number] Admin: 08/27/19 15:22 Dose: 3 ml Documented by: [id number] Admin: 08/27/19 11:31 Dose: 3 ml Documented by: [id number] Admin: 08/27/19 07:23 Dose: 3 ml Documented by: [id number] Admin: 08/27/19 02:01 Dose: 3 ml Documented by: [id number] Budesonide (Pulmicort Respules) 0.5 mg NEB BIDR BRIJESH Stop: 09/26/19 06:59 Last Admin: 08/27/19 19:12 Dose: 0.5 mg Documented by: [id number] Admin: 08/27/19 07:23 Dose: 0.5 mg Documented by: [id number] Heparin Sodium (Porcine) (Heparin Sodium (Porcine)) 5,000 units SQ Q8 BRIJESH Stop: 09/25/19 05:59 Last Admin: 08/27/19 20:56 Dose: 5,000 units Documented by: [id number] Cosigned by: [id number] Admin: 08/27/19 14:06 Dose: 5,000 units Documented by: [id number] Cosigned by: [id number] Admin: 08/27/19 05:01 Dose: 5,000 units Documented by: [id number] Cosigned by: [id number] Admin: 08/26/19 21:02 Dose: 5,000 units Documented by: [id number] Cosigned by: [id number] Admin: 08/26/19 14:29 Dose: 5,000 units Documented by: [id number] Cosigned by: [id number] Admin: 08/26/19 05:44 Dose: 5,000 units Documented by: [id number] Cosigned by: [id number] Vancomycin HCl 1,750 mg/ (Sodium Chloride) 535 mls @ 200 mls/hr IV Q18H BRIJESH Stop: 08/29/19 15:59 Last Infusion: 08/27/19 13:12 Dose: 0 mls/hr Documented by: [id number] Admin: 08/27/19 10:31 Dose: 200 mls/hr Documented by: [id number] Infusion: 08/26/19 18:21 Dose: 0 mls/hr Documented by: [id number] Admin: 08/26/19 15:40 Dose: 200 mls/hr Documented by: [id number] Piperacillin Sod/Tazobactam (Sod 4.5 gm/ Dextrose) 120 mls @ 30 mls/hr IV Q8H BRIJESH; Protocol Stop: 08/30/19 02:59 Last Admin: 08/27/19 20:56 Dose: 30 mls/hr Documented by: [id number] Infusion: 08/27/19 14:52 Dose: 0 mls/hr Documented by: [id number] Admin: 08/27/19 10:52 Dose: 30 mls/hr Documented by: [id number] Infusion: 08/27/19 10:52 Dose: 0 mls/hr Documented by: [id number] Infusion: 08/27/19 04:33 Dose: 0 mls/hr Documented by: [id number] Admin: 08/27/19 03:05 Dose: 30 mls/hr Documented by: [id number] Furosemide 40 mg/ Syringe 4 mls @ 4 mls/min IV BID BRIJESH Stop: 09/26/19 08:59 Last Admin: 08/27/19 20:57 Dose: 4 mls/min Documented by: [id number] Admin: 08/27/19 08:15 Dose: 4 mls/min Documented by: [id number] Ioversol (Optiray 320 100ml) 93 ml IV ONCE PRN PRN Reason: Interaction Checking Stop: 08/29/19 21:27 Last Admin: 08/25/19 21:29 Dose: 93 ml Documented by: [id number] Ioversol (Optiray 320 125ml) 118 ml IV ONCE PRN PRN Reason: Interaction Checking Stop: 08/31/19 04:54 Last Admin: 08/27/19 04:56 Dose: 1 ml Documented by: [id number] Pantoprazole Sodium (Protonix) 40 mg PO QAM BRIJESH Stop: 09/25/19 08:59 Last Admin: 08/27/19 08:17 Dose: 40 mg Documented by: [id number] Admin: 08/26/19 08:52 Dose: 40 mg Documented by: [id number] Discontinued Medications Budesonide (Pulmicort Respules) 0.5 mg NEB ONE ONE Stop: 08/27/19 02:16 Last Admin: 08/27/19 02:34 Dose: 0.5 mg Documented by: [id number] Hydroxyzine HCl (Vistaril) 50 mg PO NOW STA Stop: 08/27/19 02:17 Last Admin: 08/27/19 03:05 Dose: 50 mg Documented by: [id number] Acetaminophen (Ofirmev) 1,000 mg in 100 mls @ 400 mls/hr IV NOW STA Stop: 08/25/19 21:51 Last Infusion: 08/25/19 22:20 Dose: 0 mls/hr Documented by: [id number] Admin: 08/25/19 21:54 Dose: 400 mls/hr Documented by: [id number] Vancomycin HCl 2,250 mg/ (Sodium Chloride) 545 mls @ 200 mls/hr IV NOW ONE Stop: 08/26/19 00:56 Last Infusion: 08/26/19 02:12 Dose: 0 mls/hr Documented by: [id number] Admin: 08/25/19 23:14 Dose: 200 mls/hr Documented by: [id number] Cefepime HCl (Maxipime) 2,000 mg in 20 mls @ 5 mls/min IV NOW STA Stop: 08/25/19 22:16 Last Admin: 08/25/19 22:35 Dose: 5 mls/min Documented by: [id number] Famotidine 20 mg/ Syringe 5 mls @ 2.5 mls/min IV Q12H BRIJESH Stop: 09/25/19 01:59 Last Admin: 08/27/19 14:07 Dose: 2.5 mls/min Documented by: [id number] Admin: 08/27/19 01:06 Dose: 2.5 mls/min Documented by: [id number] Admin: 08/26/19 14:29 Dose: 2.5 mls/min Documented by: [id number] Admin: 08/26/19 02:29 Dose: 2.5 mls/min Documented by: [id number] Cefepime HCl 2,000 mg/ Syringe 20 mls @ 5.5 mls/min IV Q12H [facility]; Protocol Stop: 08/28/19 09:59 Last Admin: 08/26/19 21:03 Dose: 5.5 mls/min Documented by: [id number] Admin: 08/26/19 09:47 Dose: 5.5 mls/min Documented by: [id number] Azithromycin 500 mg/ Dextrose 255 mls @ 127.5 mls/hr IV Q24H BRIJESH Stop: 09/03/19 03:59 Last Infusion: 08/27/19 07:00 Dose: 0 mls/hr Documented by: [id number] Admin: 08/27/19 04:59 Dose: 127.5 mls/hr Documented by: [id number] Furosemide 40 mg/ Syringe 4 mls @ 4 mls/min IV ONE ONE Stop: 08/27/19 06:25 Last Admin: 08/27/19 06:44 Dose: 4 mls/min Documented by: [id number] Methylprednisolone (Solumedrol) 40 mg IV NOW STA Stop: 08/27/19 02:46 Last Admin: 08/27/19 03:05 Dose: 40 mg Documented by: [id number] Perflutren Lipid Microsphere (Definity) 2 ml IV ONCE ONE Stop: 08/27/19 11:35 Last Admin: 08/27/19 11:34 Dose: 2 ml Documented by: [id number] Medical Decision Making Differential Diagnosis Differential diagnoses includes but is not limited to lab error, infection, sepsis, inflammatory response, trauma, medication reaction, pain. Medical Records Attestation: I reviewed the patient's medical records. Home Medications Current Medication List: was personally reviewed by me Laboratory Data Attestation: I reviewed the patient's lab results. Result diagrams: 08/27/19 02:56 08/27/19 02:56 Lab Results 08/25/19 08/25/19 08/25/19 Range/Units 19:03 19:38 19:38 Lactate 1.1 (0.4-2.0) mmol/L Troponin I 0.551 H* (0-0.045) ng/ml Lipase (73-393) U/L Procalcitonin 0.13 (0-0.5) ng/ml 08/25/19 Range/Units 19:40 Lactate (0.4-2.0) mmol/L Troponin I (0-0.045) ng/ml Lipase 112 (73-393) U/L Procalcitonin (0-0.5) ng/ml Imaging Data Radiologist's Impression: Radiology results as stated below per my review and the radiologist's interpretation: XR chest 1V not portable HISTORY: leukocytosis COMPARISON: Chest CTA 08/18/2019. FINDINGS: No pneumothorax. No pleural effusions. No new focal lung consolidations to suggest pneumonia. There is diffuse interstitial thickening. The heart remains enlarged. Poststernotomy changes. IMPRESSION: Cardiomegaly with mild diffuse interstitial thickening. This suggests mild congestive change. ACT 112: Negative or not required by law. Electronically signed by: Richard Mora M.D. 08/25/2019 8:59 PM ABDOMEN AND PELVIS CT WITH IV CONTRAST CT DOSE: 1560.77 mGy.cm HISTORY: Generalized abd pain, leukocytosis TECHNIQUE: Multiaxial CT images of the abdomen and pelvis were performed following the use of intravenous contrast. A dose lowering technique was utilized adhering to the principles of ALARA. COMPARISON STUDY: None. FINDINGS: Trace left pleural effusion. Patchy densities at the lung bases posteriorly favor mild dependent change. No pneumoperitoneum. No pneumatosis. No fractures within the visualized osseous structures. The liver, gallbladder, and adrenal glands unremarkable. There are few small bilateral renal hypodense lesions. The majority of these are subcentimeter in size is too small to catheterize. The largest on the left measures 1.8 cm and likely represents a cyst. No hydronephrosis. The main portal vein is patent. No retroperitoneal lymphadenopathy. There is mild thickening of the second and third portions of the duodenum with mild surrounding inflammatory change. The inflammatory change also surrounds the uncinate process of the pancreas. Small fat-containing left inguinal hernia. Moderate right inguinal hernia containing fat and the anterior aspect of the bladder. No evidence for bowel obstruction. Colonic diverticulosis. No evidence for acute diverticulitis. Subcutaneous fat stranding within the right groin. This may be due to prior intervention. A 1.9 cm hypodense lesion within the inferior aspect of the spleen. This is technically indeterminate on this single phase study but statistically benign. IMPRESSION: 1. Mild thickening of the second and third portion of the duodenum with mild surrounding inflammatory change. The inflammatory change also surrounds the uncinate process of the pancreas. Therefore, this could represent a duodenitis/peptic ulcer disease or an acute pancreatitis. Endoscopy and/or pancreatic enzymes should be performed for further evaluation. 2. Trace left pleural effusion. 3. Moderate size right inguinal hernia containing fat in the anterior bladder. 4. Additional findings as described above. ACT 112: Negative or not required by law. Electronically signed by: Richard Mora M.D. 08/25/2019 9:[address] head: The paranasal sinuses and mastoid air cells are normally aerated. There is no skull fracture or scalp hematoma. There is a normal gyral pattern of the brain. There is no mass lesion or midline shift. The alexander-white matter differentiation is maintained. There is mild diffuse cerebral atrophy and periventricular white matter low-density bilaterally consistent with chronic small vessel disease. There is no evidence of acute large vessel infarct or intracranial hemorrhage. Radiologist: Jin Mancilla MD Blood Pressure Blood Pressure Findings: Elevated blood pressure Blood Pressure Disposition: further management by hospitalist RADHA Tuttle An order was placed for continuous cardiac monitoring. The monitor shows a rate of 70 with normal sinus rhythm. Patient here initially well-appearing with no complaints and stable vital signs, sent in for leukocytosis noted as an outpatient. Patient had no complaints. We discussed concern for possible evolving infectious etiology versus other inflammatory condition. I did review the additional outpatient labs including CBC and CMP. Patient was difficult to obtain labs and establish an IV in, this took several attempts from our ER staff as well as an eventual call to the IV team who had difficulty also. Additional cultures and labs sent. Chest x-ray added given recent interventions and procedures. No focal consolidation or pulmonary edema noted. Urine that was checked yesterday was unremarkable also. Patient had no complaints or concerns. Patient then upon a recheck seem to be either owning or becoming slightly forgetful, and complained to nursing staff about abdominal pain. Patient then sent for CT head as well as CT abdomen and pelvis. Radiology felt patient may have a component of duodenitis or possible pancreatitis. Lipase was added then as a precaution. Patient's lactic acid and pro calcitonin are reassuring, other cultures were already sent. While patient was on the monitor there was an episode in which patient appeared to be in second-degree heart block, EKG tracing was not as convincing, and patient returned to a regular normal sinus rhythm upon my next recheck. Due to concern for deteriorating mental status, worsening leukocytosis and possible evolving infection, case was discussed with hospitalist for additional evaluation and management. Patient did remain hemodynamically stable in the emergency room. Impression & Plan Leukocytosis, Duodenitis, Pancreatitis, Hypertension, Acute confusion Discharge Plan Visit Data *Final* Discharge Date/Time: 08/26/19 01:01 Chief Complaint: Abnormal Labs/Diagnostic Testing Stated Complaint: ABN LABS- CARDIAC HX ED Provider: Karen Alex Discharge Problem: Leukocytosis, Duodenitis, Pancreatitis, Hypertension, Acute confusion Patient Disposition: Admitted As Inpatient Discharge Instructions Interventions: ED Discharge Assessment Last Done: 08/26/19 01:01 Discharge Problem: Leukocytosis Qualifiers: Leukocytosis type: unspecified Qualified Code(s): D72.829 - Elevated white blood cell count, unspecified Pancreatitis Qualifiers: Chronicity: acute Pancreatitis type: unspecified pancreatitis type Acute pancreatitis complication: unspecified Qualified Code(s): K85.90 - Acute pancreatitis without necrosis or infection, unspecified Hypertension Qualifiers: Hypertension type: essential hypertension Qualified Code(s): I10 - Essential (primary) hypertension The scribe's documentation has been prepared under my direction and personally reviewed by me in its entirety. I confirm that the note above accurately reflects all work, treatment, procedures, and medical decision making performed by me.
[2019-08-26] MEDS ORDERED: ACETAMINOPHEN 325 MG TAB PO PRN (01:31)
[2019-08-26] MEDS ORDERED: ALUMINUM/MAGNESIUM SUSP 30 ML UDC PO PRN (01:31)
[2019-08-26] MEDS ORDERED: MAGNESIUM HYDROXIDE SUSP 30 ML UDC PO PRN (01:31)
[2019-08-26] MEDS ORDERED: ONDANSETRON INJ 2 MG/ML 2 ML VIAL IV PRN (01:31)
[2019-08-26] MEDS ORDERED: INFLUENZA ADMINISTRATION CHARGE ONE (01:46)
[2019-08-26] MEDS ORDERED: PNEUMOCOCCAL POLYSACCHARIDES 25 MCG/0.5 ML VIAL/SYR IM ONE (01:46)
[2019-08-26] MEDS ORDERED: INFLUENZA VACCINE HIGH DOSE 65+ 0.5 ML SYR IM ONE (01:46)
[2019-08-26] MEDS ORDERED: PNEUMOCOCCAL ADMINISTRATION CHARGE ONE (01:46)
[2019-08-26] MEDS ORDERED: CEFEPIME CONSULT ACTIVE PRN (02:18)
[2019-08-26] MEDS: FAMOTIDINE 20 MG in SYRINGE 3 ML IV SCH ×2 (02:29→14:29)
[2019-08-26 04:29] LABS: Albumin Globulin Ratio 0.4 (0.9-2); Bilirubin,Total 0.4 mg/dl (0.2-1); Calcium 8.1 mg/dl (8.5-10.1); Creatinine Clr Calc Pharmacy 56.8 ml/min; Est GFR (African American) 60.9; Est GFR (Non-African American) 52.5; Globulin 5.1 gm/dl (2.5-4.0); Magnesium 2.2 mg/dl (1.8-2.4); Potassium 4.6 mmol/L (3.5-5.1); Total Protein 7.1 gm/dl (6.4-8.2)
[2019-08-26 05:29] LABS: Basophils # (auto) 0.02 K/uL (0-0.2); Basophils % (auto) 0.1 %; Eosinophils # (auto) 0.03 K/uL (0-0.5); Eosinophils % (auto) 0.2 %; Hematocrit (blood only) 34.9 % (42-52); Hemoglobin 11.5 g/dL (14.0-18.0); Immature Granulocytes # (auto) 0.14 K/uL (0.00-0.02); Immature Granulocytes % (auto) 0.8 %; Lymphocytes # (auto) 1.34 K/uL (1.2-3.4); Lymphocytes % (auto) 7.5 %; Mean Corpuscular Hemoglobin 32.4 pg (25-34); Mean Corpuscular Volume 98.3 fL (80-100); Monocytes # (auto) 1.54 K/uL (0.11-0.59); Monocytes % (auto) 8.7 %; Neutrophils # (auto) 14.72 K/uL (1.4-6.5); Neutrophils % (auto) 82.7 %; Platelet Count 267 K/uL (130-400); RDW Coefficient of Variation 14.2 % (11.5-14.5); RDW Standard Deviation 51.8 fL (36.4-46.3); Red Blood Count 3.55 M/uL (4.7-6.1); White Blood Count 17.79 K/uL (4.8-10.8)
[2019-08-26] MEDS: HEPARIN SOD 5,000 UNIT/0.5 ML VIAL SQ SCH ×3 (05:44→21:02)
--- NOTE | 2019-08-26 06:22 | Cardiac Catheterization ---
[facility] Data: Wire Technician Cardiac Status Clinical evaluation leading to the procedure CAD Presenation: Non STEMI Diagnostic Physicians Name: Delroy Alonso MD Closure Device Recommendations: Medical Therapy and/or Counseling Cardiac Cath Procedure Full Procedure Date August 26, 2019 Pre-Procedure Diagnosis Pre-Procedure Diagnosis: Non STEMI AUC Score AUC Score: 8 Post-Procedure Diagnosis Post-Procedure Diagnosis: Severe CAD Procedure(s) Performed Procedure(s) Performed: Coronary Angiography and Left Heart Cath Anode Rebuilder Delroy Alonso MD Estimated Blood Loss Estimated Blood Loss: 10cc Medication(s) Medication(s): Fentanyl, Lidocaine 1%, Nicardipine, Nitroglycerin and Versed Summary of Findings Procedure performed: Left heart catheterization, coronary arteriography, bypass graft arteriography Staff automatic centrifugal station operator: Delroy Alonso MD Indication: Patient is an 79-year-old gentleman who was admitted to the hospital without specific cardiac complaints and was found incidentally to have elevated cardiac biomarkers. Procedure in detail: The patient was informed of the risks benefits and alternatives to the intended procedure. He understood and wished to proceed. He was taken to the cardiac catheterization suite in a fasting state. Conscious sedation was administered per protocol and the patient was monitored electrocardiographically throughout today's procedure. The left wrist area was prepped and draped in usual sterile fashion. Area over the left radial artery was then anesthetized and subcutaneous ministration of lidocaine solution. The left radial artery was accessed but a wire could not successfully be passed. The right femoral artery was subsequently accessed using modified Seldinger technique and a 5 Bhutanese arterial sheath was placed at the site over guidewire. The sheath was used to felt a passage of the cardiac catheters for coronary angiography, bypass graft angiography and left heart catheterization. Images were taken multiple orthogonal views prior to removal of the catheters and sheath. Closure device was used for hemostasis at the arteriotomy site. The patient tolerated procedure well. There were no immediate complications. Findings: Coronary angiography Left main: Left main coronary was small but bifurcated normally into the left circumflex and left anterior descending arteries. No significant disease in this vessel Left anterior descending: Left anterior descending was a relatively small vessel which was diseased in its proximal portion and 100% occluded after the takeoff of a mid diagonal branch. There was a complex lesion at the takeoff of the diagonal branch, septal repair department supervisor and 100% occlusion which appeared to partially compromise the diagonal branch. Left circumflex: Left circumflex artery was a small nondominant vessel. It produced 3 diminutive OM branches. No significant disease in the visualized segments of this vessel Right coronary artery: Right coronary artery was a small vessel totally occluded in its midportion. Is heavily diseased in its proximal portion with approximately 90% complex stenosis in the visualized segment. COBURN to diagonal and LAD graft: Widely patent. This was anastomosed to a small diagonal and a small distal LAD Saphenous vein graft to OM: This graft was widely patent. It was grafted to a large OM branch without significant disease Saphenous vein graft to PDA: This graft was widely patent. Is filled a large PDA system, and there was good retrograde flow with approximately 50% stenosis in the midportion of the retrograde limb. Conclusions: Severe iqugmiut vessel disease Patent bypass grafts Elevated left ventricular end-diastolic pressure No evidence of acute or recent event based on the visualized anatomy Hemodynamics Rest Ao:: 130/56 mmHg Final Ao: 153/54 mmHg LV: 178/0 millimeters mercury. Left ventricular end-diastolic pressure 23 mmHg Recommendations Recommendations: Medical Therapy and/or Counseling Radiation Exposure (mGy) q Contrast (mls) q Procedural Complication(s) None Disposition Wire Technician Holding/Recovery I attest to the content of the Intraoperative Record and any orders documented therein. Any exceptions are noted below. [facility] Card Cath Procedure Codes Cardiac Catheterization Procedure 1: Cardiovascular Cath Procedures: 87681 Coronaries & LHC (+/-LV) & Grafts/IM (arterial & venous) Moderate Sedation Procedure 1: Sedation/Anesthesia: 46511 Mod Sedation by the same physician;Init15 Min Child Age 5 & Up Procedure 2: Sedation/Anesthesia: 60420 Mod Sedation by the same physician; Ea [id number] Minutes PG Care Time/CCT Total # of Minutes Spent Total Time Spent with Patient: Total time spent is greater than 50% in coordination of care (as documented) at patient's floor/unit and/or counseling patient:
--- NOTE | 2019-08-26 08:20 | CT Scan Report ---
CT SCAN OF THE BRAIN WITHOUT IV CONTRAST CLINICAL HISTORY: Change in mental status. COMPARISON STUDY: No priors. TECHNIQUE: Unenhanced axial CT scan of the brain is performed from the vertex to the skull base. A do se lowering technique was utilized adhering to the principles of ALARA. CT DOSE: 537.48 mGy.cm FINDINGS: Brain parenchyma: There are age-related involutional changes noting mild subcortical and periventric ular microangiopathic change. There is no hemorrhage, mass effect, or evidence of acute territorial i schemia by CT criteria. Rodriguez-white matter differentiation is preserved. No extra-axial fluid collecti on is seen. Ventricles, sulci, cisterns: Prominent secondary to involutional change. Intracranial vasculature: There is atherosclerotic calcification of the cavernous carotid and vertebr al arteries. Calvarium: Unremarkable. Sinuses and mastoids: The visualized paranasal sinuses are clear. The mastoid air cells are well pneu matized. Orbits: The bony orbits are grossly intact. IMPRESSION: There is no hemorrhage, mass effect, or evidence of acute territorial ischemia by CT crit andrew. ACT 112: Negative or not required by law. Electronically signed by: Elgin Gonzalez M.D. 08/26/2019 8:18 AM
[2019-08-26] MEDS: PANTOprazole 40 MG TAB PO SCH (08:52)
[2019-08-26 09:00] LABS: Influenza A virus by PCR Neg for Influ A (Neg); Influenza B virus by PCR Neg for Influ B (Neg)
[2019-08-26] MEDS ORDERED: CLOPIDOGREL BISULFATE 75 MG TAB PO SCH (09:00)
[2019-08-26] MEDS ORDERED: AMLODIPINE BESYLATE 5 MG TAB PO SCH (09:00)
[2019-08-26] MEDS ORDERED: CALCIUM CARBONATE 1250MG TAB PO SCH (09:00)
[2019-08-26] MEDS ORDERED: NON-FORMULARY MEDICATION (Coenzyme Q10 [Coq-10] 100 MG) PO SCH (09:00)
[2019-08-26] MEDS ORDERED: CHOLECALCIFEROL 1,000 UNITS 25 MCG TAB PO SCH (09:00)
[2019-08-26] MEDS ORDERED: ROSUVASTATIN CALCIUM 20 MG TAB PO SCH (09:00)
[2019-08-26] MEDS ORDERED: FINASTERIDE 5 MG TAB PO SCH (09:00)
[2019-08-26] MEDS ORDERED: ASPIRIN 81 MG ECTAB PO SCH (09:00)
--- NOTE | 2019-08-26 09:00 | Pharmacy Report ---
Pharmacy Abx Initial Consult - Date of Service August 26, 2019 - Pharmacy Dosing Scope Date of Consult: 08/25/19 Consultation requested by: Dr. Shea Pharmacy is consulted to initiate vancomycin and cefepime IV dosing therapy, order appropriate labs and adjust drug dose/frequency. - Subjective The patient is a 79 year old M admitted on 08/25/19 23:08. - Objective Height: 5 ft 8 in Weight: 115.2 kg Vital Signs (Past 12hrs): Vital Signs Temp Pulse Pulse Resp BP BP Pulse Ox 08/26/19 07:36 36.9 C 51 L 18 135/69 97 08/26/19 03:25 37.1 C 59 L 20 178/73 H 97 08/26/19 02:34 58 L 08/26/19 01:32 36.8 C 64 18 160/72 H 96 08/26/19 01:00 60 18 149/55 H 92 08/26/19 00:30 61 18 133/59 L 93 08/25/19 22:30 62 18 149/56 H 90 08/25/19 22:00 76 19 179/72 H 93 08/25/19 21:44 37.4 C 08/25/19 21:00 70 12 174/69 H 92 Lab Results (24hrs): Laboratory Tests (24 Hours) 08/26/19 08/26/19 08/26/19 05:16 03:52 03:52 WBC 17.79 H Cancelled Neut # (Auto) 14.72 H Cancelled Creatinine 1.28 Est Cr Clr Drug Dosing 56.8 Procalcitonin 08/25/19 19:38 WBC Neut # (Auto) Creatinine Est Cr Clr Drug Dosing Procalcitonin 0.13 Micro Results: 08/25/19 19:38 Aerobic Blood Culture - Pending Blood Anaerobic Blood Culture - Pending 08/25/19 18:17 Aerobic Blood Culture - Pending Blood Anaerobic Blood Culture - Pending - Risk Factors for Resistance * Hospitalization for 48 hours or more within the past 90 days - Assessment & Plan Assessment * 79 year old M who presented to [facility] on 08/25 with confusion/disorientation * Patient did have TTE performed on 08/19/2019 * Possible diagnosis of endocarditis * BCx obtained and pending * Empirically treating with vancomycin and cefepime Plan Vancomycin IV * Estimated PK Parameters: Vd 0.6 L/kg, Jose 0.048 hr-1, t1/2 14.4 hr * Loading dose: 2250 mg (~20 mg/kg) * Maintenance dose: 1750 mg IV (~15 mg/kg) every 18 hours * Goal trough level for: 15 to 20 mcg/mL * Antibiotics entered empirically. Trough will be ordered as appropriate if abx are continued * Extended dosing interval has been selected due to likelihood of drug accumulation in obese patient Cefepime IV * Target dose: 2g IV Q8H * eCrCl = 57 ml/min * Per Clinical Pharmacology: reduce maintenance dose to 2g Q12H for CrCl 30 to 60 ml/min Pharmacy will continue to follow and will adjust dose/frequency as necessary. Thank you.
[2019-08-26] MEDS: CEFEPIME 2,000 MG in SYRINGE 7.5 ML IV SCH ×2 (09:47→21:03)
--- NOTE | 2019-08-26 11:44 | Cardiology Consultation ---
Date of Consultation He denies any chest pain chest pressure chest heaviness. He denies any shortness of breath. He denies any fevers or chills or sweats. He denies any Reiger's. He notes some mild cough which is nonproductive. He denies any urinary complaints his right leg is chronically more swollen than his left since his bypass surgery and its not any more swollen than usual.He denies any orthopnea. He is clearly confused today he has a little bit of pill bawling when he plays with his pant legs he also tends to repeat his statements. And he is referring back to his previous bypass surgery with out a lot of awareness as to what happened 3 days ago during his hospitalization. He denies any falls. He denies any shortness of breath at home walking at [facility] to the dining mckeon. He denies any sudden onset of feeling short of breath. August 26, 2019 History of Present Illness Attending Physician: Good Carney Allergies Allergy/AdvReac Type Severity Reaction Status Date / Time No Known Allergies Allergy Unverified 08/25/19 17:47 Home Medications Home Medications Medication Instructions Recorded Confirmed Type aspirin 81 mg PO DAILY 08/18/19 08/25/19 History cholecalciferol (vitamin D3) 1,000 unit PO DAILY 08/18/19 08/25/19 History [Vitamin D3] amlodipine [Norvasc] 5 mg PO QAM #30 tab 08/21/19 08/25/19 Rx atorvastatin [Lipitor] 10 mg PO HS 08/25/19 08/25/19 History calcium carbonate [Calcium 500] 500 mg PO DAILY 08/25/19 08/25/19 History clopidogrel [Plavix] 75 mg PO QAM 08/25/19 08/25/19 History coenzyme Q10 [CoQ-10] 100 mg PO DAILY 08/25/19 08/25/19 History finasteride [Proscar] 5 mg PO DAILY 08/25/19 08/25/19 History lisinopril [Zestril] 2.5 mg PO HS 08/25/19 08/25/19 History rosuvastatin 20 mg PO DAILY 08/25/19 08/25/19 History Patient History Medical History Aortic aneurysm BPH (benign prostatic hyperplasia) Costochondritis Grade II diastolic dysfunction Hypertension Mild mitral regurgitation Moderate aortic regurgitation Non-ST elevation CA (NSTEMI) on 08/18/2019 Surgical History H/O cardiac catheterization on 08/21/2019 Family History Other No pertinent family history in first degree relatives Social History Preferred Language: Georgian Communication Ability: Impaired Personalized Living Manager Required: No Beliefs That Will Affect Care: None marital status: Single Current Living Situation: Senior Living Feels Safe at Home: Yes Smoking Status: Never smoker Hx Alcohol Use: No Hx Substance Use: No Results & Data ([facility]) Vital Signs (Past 12 Hours) Vital Signs Temp Pulse Pulse Resp BP BP Pulse Ox 08/26/19 11:39 37.0 C 62 19 140/74 95 08/26/19 07:36 36.9 C 51 L 18 135/69 97 08/26/19 03:25 37.1 C 59 L 20 178/73 H 97 08/26/19 02:34 58 L 08/26/19 01:32 36.8 C 64 18 160/72 H 96 08/26/19 01:00 60 18 149/55 H 92 08/26/19 00:30 61 18 133/59 L 93 He is awake and alert he knows his name and he knows that his birthday is today. But he does have underlying confusion. HEENT 2+ carotid upstrokes He does have bilateral carotid bruits Lungs: Clear to auscultation bilaterally no rales rhonchi or wheezing Heart regular rate and rhythm soft systolic ejection murmur at the right sternal border Abdomen soft and tenderness tended positive bowel sounds obese Extremities no clubbing or cyanosis he has no edema of the left leg he has mild edema of the right leg where his vein harvesting occurred Telemetry monitoring was reviewed in detail his labs and imaging studies from both admissions were reviewed in detail Impressions: 1. elevated white count of unclear etiology 2. Increasing confusioN 3. Known coronary disease status post coronary bypass grafting with severe peoria disease but patent grafts from his catheterization his leg during his last admission. 4. Small non-ST elevation myocardial infarction during his last admission 5. Bilateral carotid artery disease with recent CTA and suggesting approximately a 70% bilateral stenoses 6. Wenckebach physiology, Rare 2-1 conduction, QRS complexes at times that appear to be a fusion beat I would recommend a repeat echocardiogram even though he had one last week to look at his aortic root and his aortic valve to make sure that there is no evidence of an abscess or endocarditis. His white count is rising the question is why. There is nothing to suggest a DVT in the right leg I felt his left wrist where his catheterization appears to have occurred his left hand is warm so was his right hand there is nothing to suggest thrombus at the cath site. If you look at his imaging studies that he had a CT of his chest done couple days ago there was no evidence of a pulmonary embolism. His CAT scan does potentially suggest small bowel diseaseAnd this could be the cause for his elevated white count. At this point his blood cultures are pending. If his blood Cultures were to turn positive then I would recommend a MARILYNN. We will continue to follow with you
--- NOTE | 2019-08-26 12:40 | Electrocardiogram Report ---
Test Reason : Blood Pressure : / mmHG Vent. Rate : 071 BPM Atrial Rate : 071 BPM P-R Int : 212 ms QRS Dur : 084 ms QT Int : 386 ms P-R-T Axes : 026 001 073 degrees QTc Int : 419 ms Sinus rhythm with first degree AVB with Mobitz I (Wenckebach) block and PAC's and blocked PAC's Possible fusion beats Nonspecific ST and T wave abnormality Abnormal ECG When compared with ECG of 18-AUG-2019 19:15, No significant change was found Confirmed by Ramírez Raymundo ([id number]) on 08/26/2019 12:40:00 PM Referred By: REFERRED SELF Confirmed By:Ramírez Raymundo
--- NOTE | 2019-08-26 12:48 | Electrocardiogram Report ---
Test Reason : Blood Pressure : / mmHG Vent. Rate : 065 BPM Atrial Rate : 079 BPM P-R Int : 222 ms QRS Dur : 086 ms QT Int : 444 ms P-R-T Axes : 056 -04 123 degrees QTc Int : 461 ms Sinus rhythm with 1st degree A-V block with Premature ventricular complexes or Fusion complexes Wenkebach and blocked PAC's ST depression, consider subendocardial injury Nonspecific ST and T wave abnormality consider anterolateral ischemia Prolonged QT Abnormal ECG When compared with ECG of 25-AUG-2019 20:15, (unconfirmed) No significant change was found Confirmed by Ramírez Raymundo ([id number]) on 08/26/2019 12:47:43 PM Referred By: REFERRED SELF Confirmed By:Ramírez Raymundo
[2019-08-26] MEDS: VANCOMYCIN HCL 1,750 MG in SODIUM CHLORIDE 0.9% 500 ML IV SCH (15:40)
[2019-08-26] MEDS ORDERED: ATORVASTATIN 10 MG TAB PO SCH (21:00)
--- NOTE | 2019-08-26 21:42 | Hospitalist Progress Note ---
Date of Service August 26, 2019 Assessment & Plan (1) Encephalopathy: uncertain etiology. the elevated WBC count is concerning for infectious cause however cxr is neg for pneumonia, u/a is not suspicious for UTI, flu PCR is negative, blood cx's thus far negative, and abd/pelvic CT without true infectious cause. the duodenitis should not cause encephalopathy unless it is infectious but doubt such (having no GI symptoms). CT head also negative for acute process. etiology?? check TSH in am check B12 in am check sed rate/crp in am serial exams if this persists consider MRI brain given the recent heart cath and carotid stenosis (2) Leukocytosis: see above in "encephalopathy" follow cultures cbc in am cont cefepime/vanco empirically but would stop these if blood cx's neg at 48 hours (3) Duodenitis: no symptoms from such lipase normal and pancreas normal on CT making pancreatitis causing duodenal irritation unlikely on IV H2 jr add PPI if no symptoms tomorrow then stop H2 jr (4) Cellulitis of right lower extremity without foot: no evidence of such on physical exam today doubt present (5) BPH (benign prostatic hyperplasia): cont usual meds from home (6) Hypertension: cont usual meds (7) Coronary artery disease: s/p CABG at hospital in [place] years ago triple-bypass just had heart cath by Dr Alonso showing patent grafts x 3 cont statin, plavix, asa (8) Non-ST elevation VT (NSTEMI): during recent hospital stay peak troponin was 10.2 now down to <1 no ischemic symptoms at this time (9) 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 awake, alert - mildly confused for short term events. remote memory very intact. he was confused to a degree regarding his recent hospital stay in which he had cardiac cath. denied any sore throat, ear pain, cough, dyspnea, chest pain, abd pain, nausea, emesis, dysuria, joint pains, skin rashes. nurses confirmed ongoing confusion. tele stable overnight. Review of Systems Constitutional: no fever, no chills and no anorexia Respiratory: no cough Gastrointestinal: no diarrhea/loose stools Neurologic: no localized weakness and no generalized weakness Physical Exam Constitutional: + obese and + altered mental status; no acute distress ENMT: external ear and nose normal, oropharynx normal Respiratory: normal respiratory effort, lungs clear to auscultation Cardiovascular: Rate/Rhythm: regular rate and regular rhythm Heart Sounds: normal S1 and normal S2 Vessels: posterior tibial pulses present and dorsalis pedis pulses present; no JVD Extremities: + edema (right ankle <1+; none on left ); no calf tenderness Gastrointestinal (Abdomen): normal bowel sounds, soft, nontender, no hepatosplenomegaly Musculoskeletal: no synovitis of any small joint or large joint Skin: no rashes, warm and dry no RLE cellulitis Neurologic: moves all extremities Psychiatric: Orientation: alert, oriented to person and oriented to place; + not oriented to time Results & Data ([facility]) Vital Signs (Past 12 Hours) Vital Signs Temp Pulse Resp BP Pulse Ox 08/26/19 18:44 37 C 60 18 150/64 H 93 08/26/19 15:15 37.1 C 53 L 18 157/62 H 97 08/26/19 11:39 37.0 C 62 19 140/74 95 Laboratory Results Laboratory Results - last 24 hr 08/25/19 08/26/19 08/26/19 19:40 02:17 03:52 WBC Cancelled RBC Cancelled Hgb Cancelled Hct Cancelled MCV Cancelled MCH Cancelled MCHC Cancelled RDW Std Deviation Cancelled RDW Coeff of Marisol Cancelled Plt Count Cancelled MPV Cancelled Immature Gran % (Auto) Cancelled Neut % (Auto) Cancelled Lymph % (Auto) Cancelled Rolette % (Auto) Cancelled Eos % (Auto) Cancelled Baso % (Auto) Cancelled Immature Gran # (Auto) Cancelled Neut # (Auto) Cancelled Lymph # (Auto) Cancelled Rolette # (Auto) Cancelled Eos # (Auto) Cancelled Baso # (Auto) Cancelled Absolute Nucleated RBC Cancelled Nucleated RBC % (auto) Cancelled Neutrophils % (Manual) Cancelled Band Neutrophils % Cancelled Lymphocytes % (Manual) Cancelled Prolymphocyte % Cancelled Reactive Lymphs % (Man) Cancelled Monocytes % (Manual) Cancelled Eosinophils % (Manual) Cancelled Basophils % (Manual) Cancelled Metamyelocytes % (Man) Cancelled Myelocytes % (Man) Cancelled Promyelocytes % (Man) Cancelled Blast Cells % (Manual) Cancelled Plasma Cell % (Manual) Cancelled Other Cells % Cancelled Nucleated RBC % Cancelled Neutrophils # (Manual) Cancelled Band Neutrophils # Cancelled Total Absolute Neuts Cancelled Lymphocytes # (Manual) Cancelled Prolymphocyte # Cancelled Reactive Lymphs # Cancelled Total Abs Lymphocytes Cancelled Monocytes # (Manual) Cancelled Eosinophils # (Manual) Cancelled Basophils # (Manual) Cancelled Metamyelocytes # (Man) Cancelled Myelocytes # (Manual) Cancelled Promyelocytes # (Man) Cancelled Blast Cells # (Man) Cancelled Plasma Cell # (Manual) Cancelled Other Cells # Cancelled Nucleated RBCs # (Man) Cancelled Hypersegmented Neuts Cancelled Hyposegmented Neuts Cancelled Hypogranular Neuts Cancelled Large Granular Lymphs Cancelled # Lrg Granular Lymphs Cancelled Hairy Cells Cancelled Smudge Cells Cancelled Toxic Granulation Cancelled Toxic Vacuolation Cancelled Dohle Bodies Cancelled Adam Rods Cancelled Platelet Estimate Cancelled Hypogranular Platelets Cancelled Clumped Platelets Cancelled Giant Platelets Cancelled Platelet Satelliting Cancelled RBC Morphology Cancelled Polychromasia Cancelled Hypochromasia Cancelled Poikilocytosis Cancelled Basophilic Stippling Cancelled Anisocytosis Cancelled Microcytosis Cancelled Macrocytosis Cancelled Spherocytes Cancelled Pappenheimer Bodies Cancelled Sickle Cells Cancelled Target Cells Cancelled Tear Drop Cells Cancelled Ovalocytes Cancelled Stomatocytes Cancelled [place] Bodies Cancelled Echinocytes Cancelled Acanthocytes (Spur) Cancelled Rouleaux Cancelled RBC Agglutinates Cancelled Schistocytes Cancelled RBC Morph Comment Cancelled Sezary Cell Cancelled Sodium Potassium Chloride Carbon Dioxide Anion Gap BUN Creatinine Est Cr Clr Drug Dosing Est GFR ( Amer) Est GFR (Non-Af Amer) BUN/Creatinine Ratio Glucose Calcium Magnesium Total Bilirubin AST ALT Alkaline Phosphatase Total Protein Albumin Globulin Albumin/Globulin Ratio Lipase 112 Specimen Hemolysis Nasal Screen MRSA (PCR) Negative Influenza Type A (PCR) Influenza Type B (PCR) 08/26/19 08/26/19 08/26/19 03:52 05:16 08:15 WBC 17.79 H RBC 3.55 L Hgb 11.5 L Hct 34.9 L MCV 98.3 MCH 32.4 MCHC 33.0 RDW Std Deviation 51.8 H RDW Coeff of Marisol 14.2 Plt Count 267 MPV 11.0 H Immature Gran % (Auto) 0.8 Neut % (Auto) 82.7 Lymph % (Auto) 7.5 Rolette % (Auto) 8.7 Eos % (Auto) 0.2 Baso % (Auto) 0.1 Immature Gran # (Auto) 0.14 H Neut # (Auto) 14.72 H Lymph # (Auto) 1.34 Rolette # (Auto) 1.54 H Eos # (Auto) 0.03 Baso # (Auto) 0.02 Absolute Nucleated RBC Nucleated RBC % (auto) Neutrophils % (Manual) Band Neutrophils % Lymphocytes % (Manual) Prolymphocyte % Reactive Lymphs % (Man) Monocytes % (Manual) Eosinophils % (Manual) Basophils % (Manual) Metamyelocytes % (Man) Myelocytes % (Man) Promyelocytes % (Man) Blast Cells % (Manual) Plasma Cell % (Manual) Other Cells % Nucleated RBC % Neutrophils # (Manual) Band Neutrophils # Total Absolute Neuts Lymphocytes # (Manual) Prolymphocyte # Reactive Lymphs # Total Abs Lymphocytes Monocytes # (Manual) Eosinophils # (Manual) Basophils # (Manual) Metamyelocytes # (Man) Myelocytes # (Manual) Promyelocytes # (Man) Blast Cells # (Man) Plasma Cell # (Manual) Other Cells # Nucleated RBCs # (Man) Hypersegmented Neuts Hyposegmented Neuts Hypogranular Neuts Large Granular Lymphs # Lrg Granular Lymphs Hairy Cells Smudge Cells Toxic Granulation Toxic Vacuolation Dohle Bodies Adam Rods Platelet Estimate Hypogranular Platelets Clumped Platelets Giant Platelets Platelet Satelliting RBC Morphology Polychromasia Hypochromasia Poikilocytosis Basophilic Stippling Anisocytosis Microcytosis Macrocytosis Spherocytes Pappenheimer Bodies Sickle Cells Target Cells Tear Drop Cells Ovalocytes Stomatocytes [place] Bodies Echinocytes Acanthocytes (Spur) Rouleaux RBC Agglutinates Schistocytes RBC Morph Comment Sezary Cell Sodium 139 Potassium 4.6 Chloride 108 H Carbon Dioxide 24 Anion Gap 7.0 BUN 17 Creatinine 1.28 Est Cr Clr Drug Dosing 56.8 Est GFR ( Amer) 60.9 Est GFR (Non-Af Amer) 52.5 BUN/Creatinine Ratio 13.0 Glucose 124 H Calcium 8.1 L Magnesium 2.2 Total Bilirubin 0.4 AST 43 H ALT 54 Alkaline Phosphatase 65 Total Protein 7.1 Albumin 2.0 L Globulin 5.1 H Albumin/Globulin Ratio 0.4 L Lipase Specimen Hemolysis Nasal Screen MRSA (PCR) Influenza Type A (PCR) Neg for Influ A Influenza Type B (PCR) Neg for Influ B PG Care Time/CCT Total # of Minutes Spent Total Time Spent with Patient: Total time spent is greater than 50% in coordination of care (as documented) at patient's floor/unit and/or counseling patient: Coding Level of Care Code 47180 Subseq Hosp Care Lvl 3 Diagnoses Encephalopathy G93.40 Leukocytosis D72.829 Leukocytosis type: unspecified Duodenitis K29.80 Cellulitis of right lower extremity without foot L03.115 BPH (benign prostatic hyperplasia) N40.0 Hypertension I10 Coronary artery disease I25.10 Non-ST elevation VT (NSTEMI) I21.4 Wenckebach second degree AV block I44.1 DVT prophylaxis Z29.9 (1) Leukocytosis Leukocytosis type: unspecified Qualified Code(s): D72.829 - Elevated white blood cell count, unspecified
[2019-08-27] MEDS: FAMOTIDINE 20 MG in SYRINGE 3 ML IV SCH ×2 (01:06→14:07)
[2019-08-27] MEDS: ALBUT/IPRATROP 3MG/0.5MG NEB 3 ML VIAL NEB SCH ×6 (02:01→22:07)
[2019-08-27] MEDS ORDERED: BUDESONIDE 0.5 MG/2 ML VIAL (PULMICORT) NEB ONE (02:15)
--- NOTE | 2019-08-27 02:23 | Communication Note ---
Date of Service: August 27, 2019 I was called to the patient's room at approximately 2:00 AM as the patient was having increasing oxygen requirements becoming tachycardic and seemed anxious. S:Upon arrival to the room and confirmed the patient was alert and oriented x4, he was attempting to tell the staff a story about how his lung is been removed in the 80s and was concerned that that was related to his current presentation. Patient was tachypneic, but able to speak in complete sentences. He stated it was difficult to breathe. He states that this can be a common thing for him, reporting that first thing in the morning he will sit up and do "breathing exercises "prior to starting his day. He also endorses some sort of abdominal muscle spasm which he believes is related to this. This evening he relates that nothing is changed in his conditioning. He thoroughly denies any allergies. He is currently status post 1 nebulized round of DuoNeb's to which there is significant improvement. Acute concerns at present relate to why he has these increasing oxygen requirements. O:General: Morbidly obese gentleman sitting up in bed in acute distress tachypneic and tachycardic HEENT: Normocephalic atraumatic Neck: Normal to visual inspection did not appreciate JVD trachea midline Cardiac: Tachycardic otherwise regular rate and rhythm I did not appreciate significant murmurs rubs or gallops, normal S1, normal S2, 2+ pedal edema bilaterally, no calf tenderness Respiratory: Wheezes heard throughout all lung hoover, tachypneic, did not appreciate rhonchi or rails. Symmetrical chest expansion bilaterally. GI: Distended abdomen, soft, nontender, bowel sounds present MSK: Moves all extremities Neuro: Alert and oriented x4 Psych: Although the patient is alert and oriented his thought processes oftentimes tangential, not necessarily goal oriented, frequently bringing up events in the past question whether there is underlying dementia A/P: This 79-year-old gentleman with a complex medical history of second-degree AV block, history of NH, grade 2 diastolic dysfunction mild mitral and aortic regurg. BPH, leukocytosis who presented with abdominal pain and subsequently diagnosed with duodenitis and pancreatitis who I am evaluating for increasing oxygen requirements and wheezing. #Hypoxia Etiology of his progressive hypoxia is unclear. It is likely multifactorial in nature. The patient appears to have significant anxiety at baseline. And when I arrived this evening he was fairly anxious. Differential includes anxiety attack, pneumonia, allergic reaction,vs DVT/PE vs fluid overload. I am confident that anxiety is playing a significant role in this patient's presentation however I cannot rule out the other etiologies entirely. Upon review of his records the patient has no known drug allergies. Although his current presentation is not entirely consistent with allergy attack/anaphylaxis it is certainly possible. Upon review of the medications he received he received vancomycin at 1500 on today, and received his second dose of cefepime at 2100 on . Given the proximity of the cefepime administration to the development of symptoms I am concerned that he may have an allergy to cefepime. Therefore will transition to Zosyn. I asked the nurse to weigh the patient this evening and he was 115 kg is consistent with a weight obtained at 5 AM on therefore it is unlikely the patient is fluid overloaded however I will correlate with a chest x-ray. I will obtain a chest x-ray to look for signs and symptoms of pneumonia and/or fluid overload. Patient reports that he has no history of blood clots, he takes clopidogrel at home although is not anticoagulated in the hospital here he has been receiving heparin. Given his current presentation will obtain a d-dimer to rule out PE. -PRN O2 wean as tolerated with a goal oxygen saturation of greater than 90 -Obtain CBC, BMP, d-dimer, pro-Nic -Aspiration precautions in place Else as below #Pneumonia Patient presenting with a clinical history and physical exam findings that could easily be explained by a community versus aspiration versus healthcare acquired pneumonia. Will obtain a chest x-ray. Patient is already on appropriate antibiotics. Switch cefepime to Zosyn.We will add azithromycin for atypical coverage -Follow-up chest x-ray -Continue antibiotics with Vanc and Zosyn -Start Zithromax -DuoNebs every 6 hours and prn q2h -Budesonide twice daily -Trend fever curve -Follow-up pro-Nic -Will make n.p.o. pending speech and swallow evaluation tomorrow #Anxiety/dementia Patient is alert and oriented x4 however not demonstrating adequate executive function. His thought process is often tangential, and not necessarily goal oriented to directed. He will oftentimes refer to surgeries or procedures he is had in the past earlier today he was ruminating on a CABG that he had in the past with cardiology, to me he was focusing on prior costochondritis that resulted in the lung surgery a number of years ago. It was immediately apparent when I came to the room the patient was profoundly anxious. After listening to the patient's story and working on breathing exercises with him some of his symptoms did improve however he was still hypoxic tachypneic and tachycardic. So all of his symptoms are not entirely explained by anxiety. Regardless given this patient's significant anxiety, questionable dementia and history of altered mental status. I am confident he would benefit from an antianxiety regimen. Will defer to day team. - precautions lights off room quiet at night, windows open lights on during the day -Given hydroxyzine 50 mg this evening mainly for its antihistamine effect however may have an added bonus of providing some anxiety relief -Would consider small dose of second-generation antipsychotics such as Zyprexa or Seroquel nightly to assist with anxiety and dementia symptoms at least while hospitalized #Questionable anaphylaxis See above. In the event that this was an anaphylactic event I provided the patient with nebulized budesonide as well as DuoNeb's. 50 mg of hydroxyzine as that is 5 times more potent than Benadryl as an antihistamine. To this we will add 40 mg of prednisone and I would traditionally give 40 mg of famotidine however the patient already receives it. -DuoNebs every 6 hours scheduled and every 2 hours as needed -Budesonide twice daily -Hydroxyzine 50 mg now -Solu-Medrol 40 mg -D/Cing cefepime starting Zosyn #Rule out PE Patient morbidly obese with numerous risk factors for PE. Obviously clopidogrel will provide some element of defense however. Is not equivalent to true anticoagulation. Patient is been maintained on heparin since hospitalized however with his increasing oxygen requirements he certainly could have thrown a clot. Patient is not endorsing any pain in his bilateral calfs. However is tachypneic and tachycardic. Calculated a Wells score to be 6.0 given this will obtain a d-dimer. If d-dimer is positive will obtain a CTA. -F/U D-dimer -Monitor clinically -Already on heparin for anticoagulation. #Abdominal pain Patient is not endorsing significant abdominal pain although this was the cause for his initial presentation. I am holding off on giving him additional pain medications as this may decrease his respiratory drive. -Alternate Tylenol and Motrin p.o. for mild pain -Toradol 15 mg every 6 hours as needed for moderate pain -Hydromorphone 0.5 mg every 3 hours for severe pain Cyrus Mancilla MD PGY 2, FCM This chart was completed utilizing [employer] voice recognition software. Grammatical errors, random word insertions, pronoun errors, and in complete sentences are an occasional consequence of the system. Any questions or concerns about the content, text, or information contained within the body of this dictation should be addressed directly to the physician for clarification. Resident Activity Tracking Resident Involvement: Resident Care Provided Care Provided: Adult [facility]
[2019-08-27] MEDS ORDERED: methylPREDNISolone 40 MG in SYRINGE 0 ML IV STA (02:39)
[2019-08-27] MEDS ORDERED: PIPERACILL/TAZOBAC CONSULT ACTIVE PRN (02:39)
[2019-08-27] MEDS ORDERED: methylPREDNISolone 125 MG/2 ML VIAL IV STA (02:45)
[2019-08-27] MEDS ORDERED: ALBUT/IPRATROP 3MG/0.5MG NEB 3 ML VIAL NEB PRN (03:02)
[2019-08-27] MEDS ORDERED: HYDROmorphone INJ 1 MG/ML SYRINGE IV PRN (03:04)
[2019-08-27] MEDS ORDERED: KETOROLAC 30 MG/ML VIAL IV PRN (03:04)
[2019-08-27] MEDS ORDERED: IBUPROFEN 600 MG TAB PO PRN (03:04)
[2019-08-27] MEDS: PIPERACILLIN/TAZOBACTAM 4.5 GM in DEXTROSE 5% 100 ML IV SCH ×3 (03:05→20:56)
[2019-08-27 03:27] LABS: Hematocrit (blood only) 35.1 % (42-52); Hemoglobin 11.5 g/dL (14.0-18.0); Mean Corpuscular Hgb Conc 32.8 g/dL (32-36); Mean Corpuscular Volume 97.8 fL (80-100); Platelet Count 244 K/uL (130-400); RDW Coefficient of Variation 14.4 % (11.5-14.5); RDW Standard Deviation 52.1 fL (36.4-46.3); Red Blood Count 3.59 M/uL (4.7-6.1); White Blood Count 20.47 K/uL (4.8-10.8)
[2019-08-27 03:48] LABS: Basophils # (auto) 0.03 K/uL (0-0.2); Basophils % (auto) 0.1 %; Eosinophils # (auto) 0.01 K/uL (0-0.5); Immature Granulocytes # (auto) 0.21 K/uL (0.00-0.02); Lymphocytes # (auto) 1.07 K/uL (1.2-3.4); Lymphocytes % (auto) 5.2 %; Monocytes # (auto) 1.42 K/uL (0.11-0.59); Monocytes % (auto) 6.9 %; Neutrophils # (auto) 17.73 K/uL (1.4-6.5); Neutrophils % (auto) 86.8 %; RBC Morphology Unremarkable
[2019-08-27 03:54] LABS: BUN Creatinine Ratio 13.5 (10-20); Calcium 8.2 mg/dl (8.5-10.1); Creatinine Clr Calc Pharmacy 53.3 ml/min; Est GFR (African American) 56.6; Est GFR (Non-African American) 48.8; Potassium 3.9 mmol/L (3.5-5.1)
[2019-08-27] MEDS ORDERED: AZITHROMYCIN 500 MG in DEXTROSE 5% 250 ML IV SCH (04:00)
[2019-08-27 04:06] LABS: C Reactive Protein 14.2 mg/dl (0-0.29); Thyroid Stimulating Hormone 3.85 uIu/ml (0.300-4.500)
[2019-08-27 04:10] LABS: D Dimer 3970 ug/L FEU (0-500)
[2019-08-27] MEDS ORDERED: OPTIRAY 320 125ml IV PRN (04:55)
[2019-08-27] MEDS: HEPARIN SOD 5,000 UNIT/0.5 ML VIAL SQ SCH ×3 (05:01→20:56)
[2019-08-27] MEDS ORDERED: FUROSEMIDE 40 MG in SYRINGE 0 ML IV ONE (06:24)
--- NOTE | 2019-08-27 07:15 | XRay Report ---
XR chest 1V portable HISTORY: 79 years-old Male increasing O2 requirments acute shortness of breath COMPARISON: CTA of the chest of same day, chest radiograph 08/25/2019 TECHNIQUE: Portable AP view of the chest FINDINGS: Cardiac silhouette is enlarged, unchanged. Prior median sternotomy with a few fractured sternotomy wi res. Small pleural effusions are noted along with mild bibasilar consolidation. Pulmonary vascular co ngestion with interstitial coarsening, progressively worsened from comparison. No pneumothorax. Degen erative changes of the shoulders and spine. IMPRESSION: 1. Cardiomegaly with mildly progressed interstitial pulmonary edema. 2. Small pleural effusions with bibasilar opacities suggestive of atelectasis or pneumonitis. ACT 112: Negative or not required by law. The above report was generated using voice recognition software. It may contain grammatical, syntax o r spelling errors. Electronically signed by: Mick Altamirano M.D. 08/27/2019 7:14 AM
[2019-08-27] MEDS: BUDESONIDE 0.5 MG/2 ML VIAL (PULMICORT) NEB SCH ×2 (07:23→19:12)
[2019-08-27] MEDS: FUROSEMIDE 40 MG in SYRINGE 0 ML IV SCH ×2 (08:15→20:57)
[2019-08-27] MEDS: PANTOprazole 40 MG TAB PO SCH (08:17)
--- NOTE | 2019-08-27 09:16 | CT Scan Report ---
CT angio chest PE protocol CT DOSE: 1107.85 mGy.cm HISTORY: 79 years-old Male with PE. Acute shortness of breath TECHNIQUE: Multiple CTA images of the chest were obtained after the intravenous administration of 119 ml Optiray 320. Coronal and sagittal MIPS were obtained from the axial data set and were submitted for review. All measurements were obtained according to NASCET criteria. A dose lowering technique w as utilized adhering to the principles of ALARA. COMPARISON: Chest radiograph of same day, CTA chest 08/18/2019 FINDINGS: Limited exam secondary to respiratory motion and upper extremity positioning. CTA: Moderate cardiomegaly. Prior median sternotomy and CABG with [place] coronary arterial calcificat ions. Study is limited secondary to respiratory motion and upper extremity positioning. Fusiform dila tion of the ascending thoracic aorta, 4.2 x 4.1 cm. Moderate mixed plaque with patency of the imaged great vessels. No dissection. Mild descending thoracic tortuosity. Suboptimal evaluation of the pulmo nary arterial subsegmental branches secondary to respiratory motion. No central pulmonary emboli iden tified. CT CHEST: Unremarkable thyroid. No adenopathy by CT size criteria. Mild bronchial wall thickening. No pneumothorax. Small bilateral pleural effusions are new from comparison. Intralobular septal thicken ing with intermixed dependent right upper lobe groundglass densities and bibasilar groundglass and co nsolidative opacities, new from comparison. There are no suspicious pulmonary nodules or masses ident ified. The central airways are patent. No acute process of the imaged upper abdomen. 11 mm soft tissu e density structure adjacent to the gastric fundus is suggestive of a small splenule. Soft tissues ar e unremarkable. Degenerative changes of the shoulders and spine. Postoperative changes of the left pr oximal humerus. IMPRESSION: 1. Limited exam as above. 2. Cardiomegaly with prior median sternotomy and CABG. 3. Interval development of interstitial pulmonary edema with new small pleural effusions. 4. Bibasilar predominate groundglass and consolidative opacities suggest atelectasis versus pneumonit is. 5. Unchanged fusiform dilation of the ascending thoracic aorta, 4.2 x 4.1 cm. ACT 112: Negative or not required by law. The above report was generated using voice recognition software. It may contain grammatical, syntax o r spelling errors. Electronically signed by: Mick Altamirano M.D. 08/27/2019 9:15 AM
[2019-08-27 09:39] LABS: Base Excess VBG -5.1 mEq/L; Oxygen Saturation VBG 64.4 %; pH VBG 7.34 (7.36-7.41)
--- NOTE | 2019-08-27 10:21 | Cardiology Progress Note ---
Date of Service Patient is on BiPAP. He still remains confused. He denies any shortness of breath. Denies any chest pain or chest pressure. Denies any lightheadedness or dizziness. In reviewing his history again he denied any outpatient fevers or chills or night sweats or Reiger's. He denied any unexplained weight loss. He looks comfortable on BiPAP. August 27, 2019 Results & Data Vital Signs (Past 12 Hours) Vital Signs Temp Pulse Pulse Resp BP Pulse Ox 08/27/19 08:08 36.4 C L 54 L 23 155/68 H 98 08/27/19 07:55 56 L 35 H 100 08/27/19 07:23 56 L 30 H 94 08/27/19 03:16 37.4 C 63 21 171/66 H 93 08/27/19 02:35 78 36 H 94 08/27/19 02:04 94 H 22 95 08/27/19 01:46 37.4 C 86 23 206/89 H 91 08/26/19 23:19 91 08/26/19 23:17 37.2 C 62 20 184/76 H 85 L He is awake and alert he knows his name But he does have underlying confusion. HEENT 2+ carotid upstrokes He does have bilateral carotid bruits Lungs: Clear to auscultation bilaterally, decreased breath sounds in the right base compared to the left Heart regular rate and rhythm soft systolic ejection murmur at the right sternal border Abdomen soft and tenderness tended positive bowel sounds obese Extremities no clubbing or cyanosis, he has mild bilateral lower extremity edema Telemetry monitoring was reviewed in detail his labs and imaging studies from both admissions were reviewed in detail CTA of his chest was reviewed Impressions: 1. elevated white count of unclear etiology with markedly elevated sed rate 2. Increasing confusioN 3. Known coronary disease status post coronary bypass grafting with severe [place] disease but patent grafts from his catheterization his leg during his last admission. 4. Small non-ST elevation myocardial infarction during his last admission 5. Bilateral carotid artery disease with recent CTA and suggesting approximately a 70% bilateral stenoses 6. Wenckebach physiology, Rare 2-1 conduction, QRS complexes at times that appear to be a fusion beat 7. Acute diastolic heart failure 8. Cardiac catheterization during his previous admission a week ago with total occlusion of the [place] coronaries but his bypass grafts were patent He has diuresed well while on BiPAP. He does not appear overly prerenal. I would continue with his diuretics. We will obtain an urgent echocardiogram today. His blood cultures at this point are negative at 24 hours 1 would anticipate if he had an overwhelming bacterial infection leading to endocarditis and a markedly elevated sed rate that his blood cultures be positive already. He could have an unusual organism like HACEK organisms. As discussed with the primary service other options include malignancy, overwhelming infection, or some inflammatory process. His white count can remain significantly elevated with predominant neutrophils. He is on antibiotics. If his white count continues to climb he may need a MARILYNN to rule out a source of infection. Dr. Alonso will return tomorrow.
[2019-08-27] MEDS: VANCOMYCIN HCL 1,750 MG in SODIUM CHLORIDE 0.9% 500 ML IV SCH (10:31)
[2019-08-27] MEDS ORDERED: PERFLUTREN LIPID MICROSPHERE (DEFINITY) IV ONE (11:34)
--- NOTE | 2019-08-27 22:27 | Hospitalist Progress Note ---
Date of Service August 27, 2019 Assessment & Plan (1) Acute respiratory failure with hypoxia: Patient was stable in room air all day yesterday. Developed respiratory distress then resp failure overnight necessitating use of BIPAP, lasix, steroids, nebs, etc. There appears to be an element of acute/chronic diastolic CHF; I cannot rule out infectious etiology at this time given the leukocytosis, high ESR/CRP, etc. Flu testing was negative. Diurese. Cont broad-spectrum IV abx. Repeat CRP in am. Consider pulmonary consultation. Noted - procalcitonin noted. Blood cx's negative. Repeat echo w/o valvular vegetations. (2) Acute on chronic diastolic (congestive) heart failure: Received 80mg of IV lasix this am with 1.5 liter diuresis. Will receive 40mg again later tonight, then 40 BID again tomorrow. Appreciate cardiology assistance. (3) Encephalopathy: uncertain etiology but leaning towards infectious process of lung causing metabolic encephalopathy. u/a not suspicious for UTI, flu PCR negative, blood cx's cont to be negative, and abd/pelvic CT without true infectious cause. the duodenitis should not cause encephalopathy unless it is infectious but doubt such (having no GI symptoms). CT head negative for acute process. TSH and B12 wnl. sed rate/crp markedly elevated - etiology?? If not lung source -- vasculitis? if encephalopathy persists despite Rx of lung issues -- when patient is more stable -- consider MRI brain given the recent heart cath and his known carotid stenosis (to r/o subacute CVA). (4) Leukocytosis: see above in "encephalopathy" follow cultures although blood cx's thus far neg cont cefepime/vanco empirically another 24 hours minimum given how ill he is convert zithromax to doxy for atypical lung coverage echo today w/o valvular vegetations (5) Duodenitis: as seen on CT at admission no symptoms from such lipase normal and pancreas normal on CT making pancreatitis causing duodenal irritation unlikely cont PPI stop H2 jr (6) Cellulitis of right lower extremity without foot: concern for such at time of admission However, no evidence of this on serial physical exams (7) BPH (benign prostatic hyperplasia): cont usual meds from home (8) Hypertension: cont usual meds (9) Coronary artery disease: s/p CABG at hospital in [place] years ago triple-bypass just had heart cath by Dr Alonso showing patent grafts x 3 during recent admission (1 week ago) cont statin, plavix, asa (10) Non-ST elevation [place] (NSTEMI): during recent hospital stay peak troponin was 10.2 now down to <1 no ischemic symptoms at this time heart cath showed patent grafts was NSTEMI a type 2 event? (11) Nayeli second degree AV block: some type 1, rare type 2 seen on telemetry hospital day #1 no type 2 overnight cardiology aware cont to monitor (12) DVT prophylaxis: heparin will need PT/OT evals when he is clinically improved and able to participate left message for sister on Admission and Anticipated Discharge Date Admission Date: August 25, 2019 Subjective events overnight hours noted. appreciate efforts of night resident & attending. during my visit patient was on BIPAP. he aroused easily. it was difficult to communicate with him because of the mask but he seemed confused. when I asked him pointed questions his answers didn't make sense. he denied pain in any location. tele overnight wnl. Review of Systems Review of Systems: Unobtainable due to cognitive status Physical Exam Constitutional: + obese and + altered mental status; no acute distress Respiratory: no respiratory distress Auscultation: + crackles (extensive b /l anterior and posteriorly); no wheezes Cardiovascular: Rate/Rhythm: regular rate and regular rhythm Heart Sounds: normal S1 and normal S2 Vessels: posterior tibial pulses present and dorsalis pedis pulses present Extremities: + edema (right ankle <1+; none on left ); no calf tenderness could not assess for JVD due to BIPAP in place Gastrointestinal (Abdomen): normal bowel sounds, soft, nontender, no hepatosplenomegaly Skin: no rashes, warm and dry Neurologic: moves all extremities Psychiatric: Orientation: alert, oriented to person and oriented to place; + not oriented to time Results & Data ([facility]) Vital Signs (Past 12 Hours) Vital Signs Temp Pulse Pulse Resp BP BP Pulse Ox 08/27/19 22:08 54 L 27 H 98 08/27/19 22:07 54 L 27 H 98 08/27/19 19:15 53 L 29 H 100 08/27/19 19:14 52 L 29 H 100 08/27/19 19:11 36.6 C 53 L 20 164/75 H 100 08/27/19 18:17 54 L 30 H 98 08/27/19 15:27 53 L 28 H 99 08/27/19 15:22 53 L 28 H 99 08/27/19 15:05 36.5 C 54 L 18 162/56 H 97 08/27/19 11:45 36.6 C 53 L 22 170/74 H 98 08/27/19 11:33 51 L 33 H 98 08/27/19 11:31 51 L 33 H 98 Laboratory Results Laboratory Results - last 24 hr 08/27/19 08/27/19 08/27/19 02:56 02:56 02:56 WBC RBC Hgb Hct MCV MCH MCHC RDW Std Deviation RDW Coeff of Marisol Plt Count MPV Immature Gran % (Auto) Neut % (Auto) Lymph % (Auto) [place] % (Auto) Eos % (Auto) Baso % (Auto) Immature Gran # (Auto) Neut # (Auto) Lymph # (Auto) [place] # (Auto) Eos # (Auto) Baso # (Auto) RBC Morphology ESR > 90 H D-Dimer VBG pH VBG pCO2 VBG pO2 VBG HCO3 VBG O2 Saturation VBG Base Excess Barometric Pressure Sodium 138 Potassium 3.9 D Chloride 110 H Carbon Dioxide 23 Anion Gap 5.0 BUN 18 Creatinine 1.36 Est Cr Clr Drug Dosing 53.3 Est GFR ( Amer) 56.6 Est GFR (Non-Af Amer) 48.8 BUN/Creatinine Ratio 13.5 Glucose 147 H POC Glucose Calcium 8.2 L C-Reactive Protein 14.20 H Vitamin B12 494 Procalcitonin TSH 3.850 08/27/19 08/27/19 08/27/19 02:56 02:56 02:56 WBC 20.47 H RBC 3.59 L Hgb 11.5 L Hct 35.1 L MCV 97.8 MCH 32.0 MCHC 32.8 RDW Std Deviation 52.1 H RDW Coeff of Marisol 14.4 Plt Count 244 MPV 12.0 H Immature Gran % (Auto) 1.0 Neut % (Auto) 86.8 Lymph % (Auto) 5.2 [place] % (Auto) 6.9 Eos % (Auto) 0.0 Baso % (Auto) 0.1 Immature Gran # (Auto) 0.21 H Neut # (Auto) 17.73 H Lymph # (Auto) 1.07 L [place] # (Auto) 1.42 H Eos # (Auto) 0.01 Baso # (Auto) 0.03 RBC Morphology Unremarkable ESR D-Dimer 3970 H* VBG pH VBG pCO2 VBG pO2 VBG HCO3 VBG O2 Saturation VBG Base Excess Barometric Pressure Sodium Potassium Chloride Carbon Dioxide Anion Gap BUN Creatinine Est Cr Clr Drug Dosing Est GFR ( Amer) Est GFR (Non-Af Amer) BUN/Creatinine Ratio Glucose POC Glucose Calcium C-Reactive Protein Vitamin B12 Procalcitonin 0.15 TSH 08/27/19 08/27/19 07:03 09:09 WBC RBC Hgb Hct MCV MCH MCHC RDW Std Deviation RDW Coeff of Marisol Plt Count MPV Immature Gran % (Auto) Neut % (Auto) Lymph % (Auto) [place] % (Auto) Eos % (Auto) Baso % (Auto) Immature Gran # (Auto) Neut # (Auto) Lymph # (Auto) [place] # (Auto) Eos # (Auto) Baso # (Auto) RBC Morphology ESR D-Dimer VBG pH 7.34 L VBG pCO2 38 VBG pO2 37 VBG HCO3 20 VBG O2 Saturation 64.4 VBG Base Excess -5.1 Barometric Pressure 736.3 Sodium Potassium Chloride Carbon Dioxide Anion Gap BUN Creatinine Est Cr Clr Drug Dosing Est GFR ( Amer) Est GFR (Non-Af Amer) BUN/Creatinine Ratio Glucose POC Glucose 258 H Calcium C-Reactive Protein Vitamin B12 Procalcitonin TSH Diagnostic Findings CTA chest neg for PE; findings of pulm edema/CHF noted PG Care Time/CCT Total # of Minutes Spent Total Time Spent with Patient: Total time spent is greater than 50% in coordination of care (as documented) at patient's floor/unit and/or counseling patient: Coding Level of Care Code 36981 Subseq Hosp Care Lvl 3 Diagnoses Acute respiratory failure with hypoxia J96.01 Acute on chronic diastolic (congestive) heart failure I50.33 Encephalopathy G93.40 Leukocytosis D72.829 Leukocytosis type: unspecified Duodenitis K29.80 Cellulitis of right lower extremity without foot L03.115 BPH (benign prostatic hyperplasia) N40.0 Hypertension I10 Coronary artery disease I25.10 Non-ST elevation [place] (NSTEMI) I21.4 Wenckebach second degree AV block I44.1 DVT prophylaxis Z29.9 (1) Leukocytosis Leukocytosis type: unspecified Qualified Code(s): D72.829 - Elevated white blood cell count, unspecified
[2019-08-28] MEDS: ALBUT/IPRATROP 3MG/0.5MG NEB 3 ML VIAL NEB SCH ×6 (03:04→22:19)
[2019-08-28] MEDS ORDERED: VANCOMYCIN TROUGH ONE (03:30)
[2019-08-28] MEDS: PIPERACILLIN/TAZOBACTAM 4.5 GM in DEXTROSE 5% 100 ML IV SCH ×3 (03:33→19:47)
[2019-08-28 04:12] LABS: Basophils # (auto) 0.02 K/uL (0-0.2); Basophils % (auto) 0.1 %; Hematocrit (blood only) 34.5 % (42-52); Hemoglobin 11.4 g/dL (14.0-18.0); Immature Granulocytes # (auto) 0.16 K/uL (0.00-0.02); Immature Granulocytes % (auto) 0.7 %; Lymphocytes # (auto) 1.12 K/uL (1.2-3.4); Lymphocytes % (auto) 5.1 %; Mean Corpuscular Hemoglobin 32.3 pg (25-34); Mean Corpuscular Volume 97.7 fL (80-100); Monocytes # (auto) 1.39 K/uL (0.11-0.59); Monocytes % (auto) 6.3 %; Neutrophils # (auto) 19.22 K/uL (1.4-6.5); Neutrophils % (auto) 87.8 %; Nucleated RBC # (auto) 0.02 K/uL (0-0); Nucleated RBC % (auto) 0.1 %; Platelet Count 359 K/uL (130-400); RDW Coefficient of Variation 14.5 % (11.5-14.5); RDW Standard Deviation 51.4 fL (36.4-46.3); Red Blood Count 3.53 M/uL (4.7-6.1); White Blood Count 21.91 K/uL (4.8-10.8)
[2019-08-28 04:29] LABS: BUN Creatinine Ratio 14.3 (10-20); C Reactive Protein 14.1 mg/dl (0-0.29); Calcium 8.4 mg/dl (8.5-10.1); Creatinine Clr Calc Pharmacy 38.4 ml/min; Est GFR (Non-African American) 32.8; Potassium 4.1 mmol/L (3.5-5.1)
[2019-08-28] MEDS: VANCOMYCIN HCL 1,750 MG in SODIUM CHLORIDE 0.9% 500 ML IV SCH (05:28)
[2019-08-28] MEDS: HEPARIN SOD 5,000 UNIT/0.5 ML VIAL SQ SCH ×3 (05:40→21:08)
[2019-08-28] MEDS: BUDESONIDE 0.5 MG/2 ML VIAL (PULMICORT) NEB SCH ×2 (07:13→19:20)
[2019-08-28] MEDS: PANTOprazole 40 MG TAB PO SCH (08:06)
[2019-08-28] MEDS: DOXYCYCLINE HYCLATE 100 MG CAP PO SCH ×2 (08:06→21:08)
[2019-08-28] MEDS: FUROSEMIDE 40 MG in SYRINGE 0 ML IV SCH (08:23)
[2019-08-28] MEDS ORDERED: VANCOMYCIN HCL 1,750 MG in SODIUM CHLORIDE 0.9% 500 ML IV SCH (10:00)
--- NOTE | 2019-08-28 11:30 | Cardiology Progress Note ---
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 He has not been started on beta-blockers as result. I do not believe any of his symptoms are related to his current conduction disease. (2) Non-ST elevation NM (NSTEMI): Biomarkers trending down. Very elevated during his last admission but no evidence of an acute coronary syndrome orders angiography. No current chest pain. When he refers to chest pain he was referring to lower abdominal discomfort this morning. (3) Moderate aortic regurgitation: Preserved LV systolic function and chamber dimension we will follow this regurgitation over time. (4) Coronary artery disease: Pain bypass graft during his catheterization recently. He will continue on his outpatient medical regimen which consists of aspirin and Plavix. On his outpatient medical regimen have both atorvastatin and rosuvastatin listed. Only 1 statin should be administered. (5) Leukocytosis: Unclear etiology. No nidus for infection or evidence of infection based on negative cultures, negative procalcitonin and absence of fever. I do not believe he requires any additional cardiac evaluation in this regard. I would not advocate a MARILYNN at this point. Admission and Anticipated Discharge Date Admission Date: August 25, 2019 Subjective This morning the patient was primarily concerned about fatigue. He also reported some lower abdominal discomfort that he associates with eating and attempting to get out of bed. He does not report significant breathing trouble. He did report chest pain, but later seem to imply that he had lower abdominal discomfort when he used the term his chest pain. Review of Systems Review of Systems: Per HPI Physical Exam Physical Exam: The patient is alert and oriented. Mood and affect appeared normal. He answered all questions appropriately. He did appear to perseverate on some topics and have difficulty finding words at times. HEENT: Pupils are equal and reactive to light and accommodation. Extraocular movements are intact. The sclerae are anicteric. Neuro: Cranial nerves intact Lungs: Clear to auscultation bilaterally. He has good air movement without use of accessory muscles. No rales wheezes or rhonchi. Cardiac: Heart demonstrates a regular rate and rhythm. Normal S1 and S2. Crescendo systolic murmur Pulses: The patient has palpable radial pulses bilaterally that are equal in intensity Extremities: There was no evidence of hypoperfusion. There is no cyanosis or clubbing. Trace lower extremity edema. I evaluate the right groin access site from last week. There is ecchymosis but no significant hematoma or tenderness. Very small subcutaneous nodule can be palpated which is consistent with use of the Angioseal closure device. Skin: I did not appreciate any rashes on examination today. Results & Data ([facility]) Vital Signs (Past 12 Hours) Vital Signs Temp Pulse Pulse Resp BP BP Pulse Ox 08/28/19 11:19 38.2 C H 63 18 182/67 H 100 08/28/19 11:14 84 18 96 08/28/19 08:00 57 L 08/28/19 07:38 36.9 C 60 22 156/69 H 96 08/28/19 07:11 56 L 20 96 08/28/19 03:22 36.5 C 53 L 19 164/64 H 98 08/28/19 03:05 54 L 54 L 25 H 95 08/28/19 00:00 55 L Laboratory Results Abnormal Lab Results 08/28/19 08/28/19 08/28/19 03:26 03:26 03:26 WBC Cancelled RBC Cancelled Hgb Cancelled Hct Cancelled MCV Cancelled MCH Cancelled MCHC Cancelled RDW Std Deviation Cancelled RDW Coeff of Marisol Cancelled Plt Count Cancelled MPV Cancelled Immature Gran % (Auto) Cancelled Neut % (Auto) Cancelled Lymph % (Auto) Cancelled Dodge % (Auto) Cancelled Eos % (Auto) Cancelled Baso % (Auto) Cancelled Immature Gran # (Auto) Cancelled Neut # (Auto) Cancelled Lymph # (Auto) Cancelled Dodge # (Auto) Cancelled Eos # (Auto) Cancelled Baso # (Auto) Cancelled Absolute Nucleated RBC Cancelled Nucleated RBC % (auto) Cancelled Neutrophils % (Manual) Cancelled Band Neutrophils % Cancelled Lymphocytes % (Manual) Cancelled Prolymphocyte % Cancelled Reactive Lymphs % (Man) Cancelled Monocytes % (Manual) Cancelled Eosinophils % (Manual) Cancelled Basophils % (Manual) Cancelled Metamyelocytes % (Man) Cancelled Myelocytes % (Man) Cancelled Promyelocytes % (Man) Cancelled Blast Cells % (Manual) Cancelled Plasma Cell % (Manual) Cancelled Other Cells % Cancelled Nucleated RBC % Cancelled Neutrophils # (Manual) Cancelled Band Neutrophils # Cancelled Total Absolute Neuts Cancelled Lymphocytes # (Manual) Cancelled Prolymphocyte # Cancelled Reactive Lymphs # Cancelled Total Abs Lymphocytes Cancelled Monocytes # (Manual) Cancelled Eosinophils # (Manual) Cancelled Basophils # (Manual) Cancelled Metamyelocytes # (Man) Cancelled Myelocytes # (Manual) Cancelled Promyelocytes # (Man) Cancelled Blast Cells # (Man) Cancelled Plasma Cell # (Manual) Cancelled Other Cells # Cancelled Nucleated RBCs # (Man) Cancelled Hypersegmented Neuts Cancelled Hyposegmented Neuts Cancelled Hypogranular Neuts Cancelled Large Granular Lymphs Cancelled # Lrg Granular Lymphs Cancelled Hairy Cells Cancelled Smudge Cells Cancelled Toxic Granulation Cancelled Toxic Vacuolation Cancelled Dohle Bodies Cancelled Adam Rods Cancelled Platelet Estimate Cancelled Hypogranular Platelets Cancelled Clumped Platelets Cancelled Giant Platelets Cancelled Platelet Satelliting Cancelled RBC Morphology Cancelled Polychromasia Cancelled Hypochromasia Cancelled Poikilocytosis Cancelled Basophilic Stippling Cancelled Anisocytosis Cancelled Microcytosis Cancelled Macrocytosis Cancelled Spherocytes Cancelled Pappenheimer Bodies Cancelled Sickle Cells Cancelled Target Cells Cancelled Tear Drop Cells Cancelled Ovalocytes Cancelled Stomatocytes Cancelled Pichardo-[place] Bodies Cancelled Echinocytes Cancelled Acanthocytes (Spur) Cancelled Rouleaux Cancelled RBC Agglutinates Cancelled Schistocytes Cancelled RBC Morph Comment Cancelled Sezary Cell Cancelled Sodium Cancelled Potassium Cancelled Chloride Cancelled Carbon Dioxide Cancelled Anion Gap Cancelled BUN Cancelled Creatinine Cancelled Est Cr Clr Drug Dosing Cancelled Est GFR ( Amer) Cancelled Est GFR (Non-Af Amer) Cancelled BUN/Creatinine Ratio Cancelled Glucose Cancelled Calcium Cancelled C-Reactive Protein Cancelled Vancomycin Trough 23.7 08/28/19 08/28/19 04:01 04:06 WBC 21.91 H RBC 3.53 L Hgb 11.4 L Hct 34.5 L MCV 97.7 MCH 32.3 MCHC 33.0 RDW Std Deviation 51.4 H RDW Coeff of Marisol 14.5 Plt Count 359 MPV 11.0 H Immature Gran % (Auto) 0.7 Neut % (Auto) 87.8 Lymph % (Auto) 5.1 Dodge % (Auto) 6.3 Eos % (Auto) 0.0 Baso % (Auto) 0.1 Immature Gran # (Auto) 0.16 H Neut # (Auto) 19.22 H Lymph # (Auto) 1.12 L Dodge # (Auto) 1.39 H Eos # (Auto) 0.00 Baso # (Auto) 0.02 Absolute Nucleated RBC 0.02 H Nucleated RBC % (auto) 0.1 Neutrophils % (Manual) Band Neutrophils % Lymphocytes % (Manual) Prolymphocyte % Reactive Lymphs % (Man) Monocytes % (Manual) Eosinophils % (Manual) Basophils % (Manual) Metamyelocytes % (Man) Myelocytes % (Man) Promyelocytes % (Man) Blast Cells % (Manual) Plasma Cell % (Manual) Other Cells % Nucleated RBC % Neutrophils # (Manual) Band Neutrophils # Total Absolute Neuts Lymphocytes # (Manual) Prolymphocyte # Reactive Lymphs # Total Abs Lymphocytes Monocytes # (Manual) Eosinophils # (Manual) Basophils # (Manual) Metamyelocytes # (Man) Myelocytes # (Manual) Promyelocytes # (Man) Blast Cells # (Man) Plasma Cell # (Manual) Other Cells # Nucleated RBCs # (Man) Hypersegmented Neuts Hyposegmented Neuts Hypogranular Neuts Large Granular Lymphs # Lrg Granular Lymphs Hairy Cells Smudge Cells Toxic Granulation Toxic Vacuolation Dohle Bodies Adam Rods Platelet Estimate Hypogranular Platelets Clumped Platelets Giant Platelets Platelet Satelliting RBC Morphology Polychromasia Hypochromasia Poikilocytosis Basophilic Stippling Anisocytosis Microcytosis Macrocytosis Spherocytes Pappenheimer Bodies Sickle Cells Target Cells Tear Drop Cells Ovalocytes Stomatocytes Pichardo-[place] Bodies Echinocytes Acanthocytes (Spur) Rouleaux RBC Agglutinates Schistocytes RBC Morph Comment Sezary Cell Sodium 140 Potassium 4.1 Chloride 107 Carbon Dioxide 27 Anion Gap 6.0 BUN 27 H Creatinine 1.89 H D Est Cr Clr Drug Dosing 38.4 Est GFR ( Amer) 38.0 Est GFR (Non-Af Amer) 32.8 BUN/Creatinine Ratio 14.3 Glucose 156 H Calcium 8.4 L C-Reactive Protein 14.10 H Vancomycin Trough PG Care Time/CCT Total # of Minutes Spent Total Time Spent with Patient: Total time spent is greater than 50% in coordination of care (as documented) at patient's floor/unit and/or counseling patient: Coding Level of Care Code 26879 Subseq Hosp Care Lvl 3 Diagnoses Wenckebach second degree AV block I44.1 Non-ST elevation NM (NSTEMI) I21.4 Moderate aortic regurgitation I35.1 Coronary artery disease I25.10 Leukocytosis D72.829 Leukocytosis type: unspecified (1) Leukocytosis Leukocytosis type: unspecified Qualified Code(s): D72.829 - Elevated white blood cell count, unspecified
--- NOTE | 2019-08-28 14:52 | Hospitalist Progress Note ---
Date of Service August 28, 2019 Assessment & Plan (1) Acute respiratory failure with hypoxia: Patient was stable in room air all day yesterday. Developed respiratory distress then resp failure overnight necessitating use of BIPAP, lasix, steroids, nebs, etc. - Diuresed on 08/26 -> Now with mild RJ. - Abx were vanc/Zosyn initially -> Will need to get IV access as he has lost his. (2) Acute on chronic diastolic (congestive) heart failure: Received 80mg of IV Lasix on 08/26, then 40 mg later in the afternoon. - At present, he appears euvolemic. - Hold further Lasix given RJ. (3) Encephalopathy: Uncertain etiology but leaning towards infectious process of lung causing metabolic encephalopathy. - U/a not suspicious for UTI, flu PCR negative, blood cx's cont to be negative, and abd/pelvic CT without true infectious cause. - CT head negative for acute process. - TSH and B12 wnl. - Consider heart catheterization (4) Leukocytosis: See above in "encephalopathy" - Continue abx (5) Duodenitis: As seen on CT at admission. No symptoms from such. Lipase normal and pancreas normal on CT making pancreatitis causing duodenal irritation unlikely. - Cont PPI (6) Cellulitis of right lower extremity without foot: This was noted as an issue on the prior presentation as well; however, I believe these are chronic findings. They have not changed on multiple examinations. - Monitor (7) BPH (benign prostatic hyperplasia): No LUTS complaints. - Cont usual meds from home (8) Hypertension: BP high today at 180/70, but in the context of agitation, confusion. - Cont usual meds (9) Coronary artery disease: S/p CABG at hospital in [place] years ago. Triple-bypass. Just had heart cath by Dr. Alonso showing patent grafts x 3 during recent admission (1 week ago). - Cont statin, plavix, ASA (10) Non-ST elevation [place] (NSTEMI): During recent hospital stay with peak troponin of 10.2. No ischemic sympt oms at this time. Heart cath showed patent grafts. - As above (11) Wenckebach second degree AV block: Some type 1, rare type 2 seen on telemetry hospital day #1. - Cardiology aware - Appreciate recs (12) DVT prophylaxis: Heparin 5000 units Q12h Admission and Anticipated Discharge Date Admission Date: August 25, 2019 Subjective Reports feeling tired today. Reports no fevers/chills, chest pain, shortness of breath, abdominal pain, nausea, or vomiting. Physical Exam Constitutional: WD/WN, vitals as above + acute distress, cooperative and + lethargic Eyes: EOM intact bilaterally; no conjunctival abnormality ENMT: external ear and nose normal, oropharynx normal Neck: trachea midline, no thyromegaly normal visual inspection Respiratory: normal respiratory effort, lungs clear to auscultation no respiratory distress Cardiovascular: RRR, no murmur, no edema Gastrointestinal (Abdomen): Inspection/Auscultation: abdomen normal to inspection; abdomen not distended Musculoskeletal: no cyanosis or clubbing, extremities motor strength 5/5 Skin: no rashes, warm and dry Neurologic: moves all extremities and awake Psychiatric: Orientation: alert, oriented to person and cooperative Results & Data ([facility]) Vital Signs (Past 12 Hours) Vital Signs Temp Pulse Pulse Resp BP BP Pulse Ox 08/28/19 11:19 38.2 C H 63 18 182/67 H 100 08/28/19 11:14 84 18 96 08/28/19 08:00 57 L 08/28/19 07:38 36.9 C 60 22 156/69 H 96 08/28/19 07:11 56 L 20 96 08/28/19 03:22 36.5 C 53 L 19 164/64 H 98 08/28/19 03:05 54 L 54 L 25 H 95 PG Care Time/CCT Total # of Minutes Spent Total Time Spent with Patient: Total time spent is greater than 50% in coordination of care (as documented) at patient's floor/unit and/or counseling patient: Coding Level of Care Code 50895 Subseq Hosp Care Lvl 3 Diagnoses Acute respiratory failure with hypoxia J96.01 Acute on chronic diastolic (congestive) heart failure I50.33 Encephalopathy G93.40 Leukocytosis D72.829 Leukocytosis type: unspecified Duodenitis K29.80 Cellulitis of right lower extremity without foot L03.115 BPH (benign prostatic hyperplasia) N40.0 Hypertension I10 Hypertension type: essential hypertension Coronary artery disease I25.10 Non-ST elevation [place] (NSTEMI) I21.4 Wenckebach second degree AV block I44.1 DVT prophylaxis Z29.9 (1) Leukocytosis Leukocytosis type: unspecified Qualified Code(s): D72.829 - Elevated white blood cell count, unspecified (2) Hypertension Hypertension type: essential hypertension Qualified Code(s): I10 - Essential (primary) hypertension
[2019-08-28] MEDS: LINEZOLID 600 MG/300 ML BAG IV SCH (16:51)
[2019-08-28 17:58] LABS: Appearance Urine Turbid (Clear); Bacteria Urine Automated Negative (Negative); Bilirubin Urine Negative (Negative); Blood Urine 3+ (Negative); Color Urine Dark Yellow; Glucose Urine UA Negative (Negative); Ketones Urine Trace (Negative); Leukocyte Esterase Urine Negative (Negative); Nitrite Urine Negative (Negative); Protein Urine 2+ (Negative); Specific Gravity Urine 1.037 (1.000-1.030); Urobilinogen Urine Negative (Negative)
[2019-08-29] MEDS: ALBUT/IPRATROP 3MG/0.5MG NEB 3 ML VIAL NEB SCH ×6 (03:06→23:22)
[2019-08-29] MEDS: PIPERACILLIN/TAZOBACTAM 4.5 GM in DEXTROSE 5% 100 ML IV SCH ×3 (03:48→22:06)
[2019-08-29] MEDS: LINEZOLID 600 MG/300 ML BAG IV SCH ×2 (05:09→17:15)
[2019-08-29 06:59] LABS: Base Excess VBG 2.8 mEq/L; HCO3 VBG 26 mmol/L; PCO2 VBG 36 mmHg (38-50); PO2 VBG 29 mmHg; pH VBG 7.48 (7.36-7.41)
[2019-08-29 07:00] LABS: Oxygen Saturation VBG < 60.0 %
[2019-08-29] MEDS: BUDESONIDE 0.5 MG/2 ML VIAL (PULMICORT) NEB SCH ×2 (07:05→21:40)
[2019-08-29] MEDS: DOXYCYCLINE HYCLATE 100 MG CAP PO SCH ×2 (08:20→22:07)
[2019-08-29] MEDS: HEPARIN SOD 5,000 UNIT/0.5 ML VIAL SQ SCH ×2 (08:20→22:08)
[2019-08-29] MEDS: PANTOprazole 40 MG TAB PO SCH (08:20)
[2019-08-29 09:07] LABS: Calcium 9.2 mg/dl (8.5-10.1); Creatinine Clr Calc Pharmacy 38.9 ml/min; Est GFR (African American) 39.2; Est GFR (Non-African American) 33.9; Potassium 3.8 mmol/L (3.5-5.1)
[2019-08-29 09:07] LABS: Basophils # (auto) 0.03 K/uL (0-0.2); Basophils % (auto) 0.2 %; Hematocrit (blood only) 35.9 % (42-52); Hemoglobin 11.7 g/dL (14.0-18.0); Immature Granulocytes % (auto) 1.2 %; Lymphocytes % (auto) 4.4 %; Mean Corpuscular Hemoglobin 31.8 pg (25-34); Mean Corpuscular Hgb Conc 32.6 g/dL (32-36); Mean Corpuscular Volume 97.6 fL (80-100); Mean Platelet Volume 11.6 fL (7.4-10.4); Monocytes # (auto) 1.23 K/uL (0.11-0.59); Monocytes % (auto) 7.7 %; Neutrophils % (auto) 86.5 %; Nucleated RBC # (auto) 0.02 K/uL (0-0); Nucleated RBC % (auto) 0.1 %; Platelet Count 341 K/uL (130-400); RDW Coefficient of Variation 14.5 % (11.5-14.5); RDW Standard Deviation 52.1 fL (36.4-46.3); Red Blood Count 3.68 M/uL (4.7-6.1); White Blood Count 16.06 K/uL (4.8-10.8)
[2019-08-29] MEDS: HydrALAZINE HCL 20 MG/ML VIAL IV PRN (13:47)
[2019-08-29 14:00] LABS: Base Excess ABG 0.1 mEq/L (-9-1.8); HCO3 ABG 23 mmol/L (19-24); PCO2 ABG 33 mmHg (35-46); PO2 ABG 69 mmHg (80-95); pH ABG 7.47 (7.35-7.45)
[2019-08-29 14:01] LABS: Allen Test Pos (Pos)
--- NOTE | 2019-08-29 14:21 | XRay Report ---
SINGLE VIEW CHEST CLINICAL HISTORY: Dyspnea. FINDINGS: An AP, portable, upright chest radiograph is compared to study dated 08/27/2019. The examinat ion is degraded by portable technique and apical lordotic positioning. The patient is status post mid line sternotomy. The heart is enlarged noting atherosclerotic calcification of the thoracic and. Ther e is pulmonary vascular congestion. Trace pleural effusions are suspected. There is bibasilar atelect asis. No pneumothorax is seen. The skeletal structures are osteopenic. The bony thorax is grossly int act. IMPRESSION: Cardiomegaly with evidence of congestive failure. ACT 112: Negative or not required by law. Electronically signed by: Elgin Gonzalez M.D. 08/29/2019 2:19 PM
--- NOTE | 2019-08-29 14:52 | Hospitalist Progress Note ---
Date of Service August 29, 2019 Assessment & Plan (1) Acute respiratory failure with hypoxia: Patient was stable in room air all day yesterday. Developed respiratory distress then resp. failure overnight necessitating use of BIPAP, Lasix, steroids, nebs, etc. - Diuresed on 08/26. - Held on 08/27 for RJ. Given single dose of Lasix 40mg IV on 08/28 for further pulmonary edema. Discussed with RN, respiratory care. - Abx were vanc/Zosyn initially, changed to linezolid/Zosyn on 08/27 for RJ. (2) Acute on chronic diastolic (congestive) heart failure: Received 80mg of IV Lasix on 08/26, then 40 mg IV later in the afternoon. - Held Lasix on 08/27 for RJ. - Given Lasix 40mg IV x 1 for pulmonary edema on 08/28. (3) Encephalopathy: Uncertain etiology but leaning towards infectious process of lung causing metabolic encephalopathy. - U/a not suspicious for UTI, flu PCR negative, blood cx's cont to be negative, and abd/pelvic CT without true infectious cause. - CT head negative for acute process. - TSH and B12 wnl. (4) Leukocytosis: See above in "encephalopathy." Improving today. - Continue abx (5) Duodenitis: As seen on CT at admission. No symptoms from such. Lipase normal and pancreas normal on CT making pancreatitis causing duodenal irritation unlikely. - Cont PPI (6) Cellulitis of right lower extremity without foot: This was noted as an issue on the prior presentation as well; however, I believe these are chronic findings. They have not changed on multiple examinations. - Monitor (7) BPH (benign prostatic hyperplasia): No LUTS complaints. - Cont usual meds from home (8) Hypertension: BP high today at 180/70, but in the context of agitation, confusion. - Cont usual meds - Added hydralazine PRN for SBP > 180 given the concern for pulmonary edema. (9) Coronary artery disease: S/p CABG at hospital in [place] years ago. Triple-bypass. Just had heart cath by Dr. Alonso showing patent grafts x 3 during recent admission (1 week ago). - Cont statin, plavix, ASA (10) Non-ST elevation [place] (NSTEMI): During recent hospital stay with peak troponin of 10.2. No ischemic symptoms at this time. Heart cath showed patent grafts. - As above (11) mOarnckenicky second degree AV block: Some type 1, rare type 2 seen on telemetry hospital day #1. - Cardiology aware - Appreciate recs (12) DVT prophylaxis: Heparin 5000 units Q12h Admission and Anticipated Discharge Date Admission Date: August 25, 2019 Subjective More shortness of breath today compared to yesterday. He also feels lethargic. Reports no fevers/chills, chest pain, abdominal pain, nausea, or vomiting. Physical Exam Constitutional: WD/WN, vitals as above + acute distress, cooperative and + lethargic Eyes: EOM intact bilaterally; no conjunctival abnormality ENMT: external ear and nose normal, oropharynx normal Neck: trachea midline, no thyromegaly normal visual inspection Respiratory: + respiratory distress and + labored breathing Auscultation: + diminished lung sounds, + crackles and + rhonchi Cardiovascular: RRR, no murmur, no edema Gastrointestinal (Abdomen): Inspection/Auscultation: abdomen normal to inspection; abdomen not distended Musculoskeletal: no cyanosis or clubbing, extremities motor strength 5/5 Skin: no rashes, warm and dry Neurologic: moves all extremities and awake Psychiatric: Orientation: alert, oriented to person and cooperative Results & Data ([facility]) Vital Signs (Past 12 Hours) Vital Signs Temp Pulse Pulse Resp BP Pulse Ox 08/29/19 14:20 165/76 H 08/29/19 12:11 73 08/29/19 11:47 37.1 C 72 32 H 210/77 H 91 08/29/19 11:32 64 32 H 73 L 08/29/19 07:35 37.2 C 68 20 198/61 H 95 08/29/19 07:21 73 39 H 92 08/29/19 07:05 58 L 24 91 08/29/19 03:08 57 L 37 H 94 08/29/19 03:07 57 L 37 H 94 08/29/19 02:52 36.5 C 60 22 188/75 H 98 PG Care Time/CCT Total # of Minutes Spent Total Time Spent with Patient: Total time spent is greater than 50% in coordination of care (as documented) at patient's floor/unit and/or counseling patient: Coding Level of Care Code 50573 Subseq Hosp Care Lvl 3 Diagnoses Acute respiratory failure with hypoxia J96.01 Acute on chronic diastolic (congestive) heart failure I50.33 Encephalopathy G93.40 Leukocytosis D72.829 Leukocytosis type: unspecified Duodenitis K29.80 Cellulitis of right lower extremity without foot L03.115 BPH (benign prostatic hyperplasia) N40.0 Hypertension I10 Hypertension type: essential hypertension Coronary artery disease I25.10 Non-ST elevation [place] (NSTEMI) I21.4 Wenckebach second degree AV block I44.1 DVT prophylaxis Z29.9 (1) Leukocytosis Leukocytosis type: unspecified Qualified Code(s): D72.829 - Elevated white blood cell count, unspecified (2) Hypertension Hypertension type: essential hypertension Qualified Code(s): I10 - Essential (primary) hypertension
[2019-08-29] MEDS ORDERED: FUROSEMIDE 40 MG in SYRINGE 0 ML IV STA (14:55)
--- NOTE | 2019-08-29 15:08 | Billing Data ---
Date of Service August 29, 2019 Coding Level of Care Code 09000 Prolonged Care (int'l) Comment In the room with patient from 9:00am to 9:15am and 2:30pm to 3:00pm.
[2019-08-29 16:00] LABS: Base Excess ABG -0.2 mEq/L (-9-1.8); HCO3 ABG 21 mmol/L (19-24); Oxygen Saturation ABG 96.8 % (90-95); PCO2 ABG 26 mmHg (35-46); PO2 ABG 78 mmHg (80-95)
[2019-08-29 16:09] LABS: Allen Test Pos (Pos); pH ABG 7.53 (7.35-7.45)
--- NOTE | 2019-08-29 18:19 | Critical Care Consultation ---
Date of Consultation August 29, 2019 Assessment & Plan (1) Acute respiratory failure with hypoxia: --Acute hypoxic respite failure Likely secondary to diastolic CHF with 2, ejection fraction 60-65% BNP: 17,000 finding and 65 continue with diuretics as tolerated, maintain negative balance Continue with BiPAP nightly and PRN shortness of breath Maintain saturation between 90 to 92% Will upgrade the patient to MICU to have close monitoring. If there is any ventilatory compromise will intubate the patient. --Metabolic encephalopathy Etiology unclear. TSH: 3.85, calcium, sodium within normal limit Patient had CT head at the time of admission 08/25/2019 which was negative for any acute findings. Could be secondary to elevated blood pressure on top of possible sepsis Try to maintain blood pressure less than SBP 160 Continue with broad-spectrum antibiotics Follow-up septic work-up procalcitonin 0.59, follow-up ESR: CRP: 14.1 Influenza negative We will consider LP if there is no improvement in his mental status after blood pressure control -- RJ Could be secondary to patient being on vancomycin initially, a Vanco trough of the patient was 23.7 on 08/28/2019 Follow-up urine lites Monitor BUN/creatinine Avoid nephrotoxic medications Strict ins and outs --Coronary artery disease Status post CABG with recent cardiac cath showing patent stents July 2019 --Pulmonary hypertension Likely type II --Morbid obesity I have personally spent 65 minutes of critical care time in the direct management of this patient. This is a life/limb threatening event. This includes time spent evaluating patient, direct bedside care, chart review, placing orders, interpretation of diagnostic studies, discussion with consultants, patient, and family members, as well as other required patient management activities. This time is exclusive of all separately billable procedures, and teaching time and separate from and in addition to any other critical care service time. Please note the above document was generated using voice recognition software. It may contain grammatical, syntax or spelling errors. (2) Acute on chronic diastolic (congestive) heart failure: (3) Encephalopathy: History of Present Illness Attending Physician: Shayne Hernandez MD History of Present Illness 79-year-old male with past medical history of coronary artery disease status post CABG multiple years ago, recent cardiac cath which showed patent stents, hypertension poorly controlled, dyslipidemia was admitted to hospital on 08/25/2019 because of a referral from outpatient physician due to increased WBC count and progressive alteration in the mental status. Patient had a CT of the abdomen pelvis done which showed possible duodenitis versus pancreatitis(lipase within normal limit at the time of presentation) patient was initially started on vancomycin and cefepime to cover for possible sepsis and cardiology consult were gotten more type II Mobitz on EKG. Today MICU evaluation was called as patient was getting more respiratory distress and altered. Patient had times where his blood pressure was above 200. At the time of examination patient is in respiratory distress breathing in low 30s while on BiPAP getting good tidal volumes. Patient is awake alert only to self not to place or time. Patient does know name of the president. Patient complains of shortness of breath no chest pain, no dizziness, no headache, no nausea, no vomiting. Patient is a poor historian given his mental status. History obtained from previous H&P and progress notes. Allergies Allergy/AdvReac Type Severity Reaction Status Date / Time No Known Allergies Allergy Unverified 08/25/19 17:47 Home Medications Home Medications Medication Instructions Recorded Confirmed Type aspirin 81 mg PO DAILY 08/18/19 08/25/19 History cholecalciferol (vitamin D3) 1,000 unit PO DAILY 08/18/19 08/25/19 History [Vitamin D3] amlodipine [Norvasc] 5 mg PO QAM #30 tab 08/21/19 08/25/19 Rx atorvastatin [Lipitor] 10 mg PO HS 08/25/19 08/25/19 History calcium carbonate [Calcium 500] 500 mg PO DAILY 08/25/19 08/25/19 History clopidogrel [Plavix] 75 mg PO QAM 08/25/19 08/25/19 History coenzyme Q10 [CoQ-10] 100 mg PO DAILY 08/25/19 08/25/19 History finasteride [Proscar] 5 mg PO DAILY 08/25/19 08/25/19 History lisinopril [Zestril] 2.5 mg PO HS 08/25/19 08/25/19 History rosuvastatin 20 mg PO DAILY 08/25/19 08/25/19 History Patient History Medical History Aortic aneurysm BPH (benign prostatic hyperplasia) Costochondritis Grade II diastolic dysfunction Hypertension Mild mitral regurgitation Moderate aortic regurgitation Non-ST elevation [place] (NSTEMI) on 08/18/2019 Surgical History H/O cardiac catheterization on 08/21/2019 Family History Other No pertinent family history in first degree relatives Social History Preferred Language: Guatemalan Communication Ability: Effective Clinical 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 Required: No Beliefs That Will Affect Care: None marital status: Single Current 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 Feels Safe at Home: Yes Smoking Status: Never smoker Hx Alcohol Use: No Hx Substance Use: No Review of Systems Review of Systems: Unobtainable due to mental health condition and Unobtainable due to cognitive status Physical Exam Physical Exam: Constitutional: In respiratory distress HEENT: EOMI, PERRLA, Mallampati 4, thick neck Respiratory system: Decreased air entry bilaterally, positive mild crackles bilateral lower lobes, no wheeze, no rhonchi CVS: S1-S2 positive, no murmurs or gallops, accentuated P2 Abdomen: Soft, nontender, nondistended, positive bowel sounds x4 Extremities: +2 pulses bilaterally radialis/ dorsalis pedis, no cyanosis, +1 edema bilateral lower extremity more on the right side (this has been chronic as per the previous notes likely the site of vein for his CABG) Neuro: Awake alert oriented to self Psych: Normal mood and affect G/U: Positive Lau Skin: no rashes, warm and dry Lymphatic: no cervical or axillary lymphadenopathy Results & Data ([facility]) Vital Signs (Past 12 Hours) Vital Signs Temp Pulse Pulse Resp BP Pulse Ox 08/29/19 15:44 60 36 H 94 08/29/19 15:15 87 16 94 08/29/19 15:06 37.1 C 58 L 32 H 154/65 H 94 08/29/19 14:20 165/76 H 08/29/19 12:11 73 08/29/19 11:47 37.1 C 72 32 H 210/77 H 91 08/29/19 11:32 64 32 H 73 L 08/29/19 07:35 37.2 C 68 20 198/61 H 95 08/29/19 07:21 73 39 H 92 08/29/19 07:05 58 L 24 91 08/29/19 06:37 08/29/19 06:43 CT chest without contrast:Done 08/27/2019 personally reviewed: Patient has small bilateral pleural effusion, positive air trapping, increased pulmonary vascular markings. No evidence of PE EKG 08/25/2019: First-degree AV block, Mobitz type I. Left axis deviation, no ST-T wave changes appreciated. Coding Level of Care Code New Pt Critical Care 1st 30-74 mins Patient Type New Diagnoses Acute respiratory failure with hypoxia J96.01 Acute on chronic diastolic (congestive) heart failure I50.33 Encephalopathy G93.40 Time Spent (min) 65
[2019-08-29 20:32] LABS: BUN Creatinine Ratio 16.6 (10-20); Calcium 8.7 mg/dl (8.5-10.1); Creatinine Clr Calc Pharmacy 38.7 ml/min; Est GFR (Non-African American) 33.6; Magnesium 2.5 mg/dl (1.8-2.4); Phosphorus 2.8 mg/dl (2.5-4.9); Potassium 3.5 mmol/L (3.5-5.1)
[2019-08-29] MEDS: AMPICILLIN 2,000 MG in SODIUM CHLOR 0.9% AD-VAN 50 ML IV SCH (22:07)
[2019-08-29] MEDS: POTASSIUM CHLORIDE / WTR 10 MEQ/100 ML PLCT IV SCH ×2 (22:14→23:15)
[2019-08-30] MEDS: ALBUT/IPRATROP 3MG/0.5MG NEB 3 ML VIAL NEB SCH ×6 (03:06→23:23)
[2019-08-30] MEDS: PIPERACILLIN/TAZOBACTAM 4.5 GM in DEXTROSE 5% 100 ML IV SCH (04:21)
[2019-08-30] MEDS: AMPICILLIN 2,000 MG in SODIUM CHLOR 0.9% AD-VAN 50 ML IV SCH ×3 (04:22→21:20)
[2019-08-30 04:49] LABS: Hematocrit (blood only) 32.9 % (42-52); Hemoglobin 10.7 g/dL (14.0-18.0); Mean Corpuscular Hemoglobin 31.8 pg (25-34); Mean Corpuscular Hgb Conc 32.5 g/dL (32-36); Mean Corpuscular Volume 97.9 fL (80-100); Mean Platelet Volume 11.2 fL (7.4-10.4); Platelet Count 295 K/uL (130-400); RDW Coefficient of Variation 14.6 % (11.5-14.5); RDW Standard Deviation 52.2 fL (36.4-46.3); Red Blood Count 3.36 M/uL (4.7-6.1)
[2019-08-30 05:08] LABS: BUN Creatinine Ratio 18.5 (10-20); Calcium 8.5 mg/dl (8.5-10.1); Est GFR (African American) 38.2; Magnesium 2.5 mg/dl (1.8-2.4); Potassium 3.5 mmol/L (3.5-5.1)
[2019-08-30 05:23] LABS: Phosphorus 3.4 mg/dl (2.5-4.9)
[2019-08-30] MEDS ORDERED: FUROSEMIDE 40 MG in SYRINGE 0 ML IV ONE ×2 (05:50→08:15)
[2019-08-30] MEDS: LINEZOLID 600 MG/300 ML BAG IV SCH ×2 (06:04→19:32)
[2019-08-30] MEDS: POTASSIUM CHLORIDE / WTR 10 MEQ/100 ML PLCT IV SCH ×3 (06:08→08:37)
[2019-08-30 07:11] LABS: Appearance Urine Cloudy (Clear); Bilirubin Urine Negative (Negative); Blood Urine 3+ (Negative); Color Urine Yellow; Glucose Urine UA Negative (Negative); Ketones Urine Negative (Negative); Leukocyte Esterase Urine Negative (Negative); Nitrite Urine Negative (Negative); Protein Urine 1+ (Negative); Specific Gravity Urine 1.025 (1.000-1.030); Urobilinogen Urine Negative (Negative); pH Urine 5.5 (4.5-7.5)
[2019-08-30] MEDS: BUDESONIDE 0.5 MG/2 ML VIAL (PULMICORT) NEB SCH ×2 (07:16→18:51)
[2019-08-30 07:22] LABS: RBC Urine >30 /hpf (0-4)
[2019-08-30 07:23] LABS: Amorphous Sediment Urine Present (None Prsent); Bacteria Urine Negative (Negative); Hyaline Casts Urine 0-5 /lpf (0-5); Uric Acid Crystals Urine Present (None Prsent)
[2019-08-30 07:39] LABS: Creatinine Urine Random 92.6 mg/dl; Uric Acid Urine Random 22.8 mg/dl; Urine Potassium 32.1 mmol/L
[2019-08-30] MEDS: HEPARIN SOD 5,000 UNIT/0.5 ML VIAL SQ SCH ×2 (08:37→21:21)
[2019-08-30] MEDS: PANTOprazole 40 MG TAB PO SCH ×2 (08:40→19:32)
[2019-08-30] MEDS: DOXYCYCLINE HYCLATE 100 MG CAP PO SCH ×2 (08:41→21:21)
[2019-08-30] MEDS: ISOSORBIDE MONO EXTENDED REL 30 MG TABCR PO SCH (09:46)
[2019-08-30] MEDS: HydrALAZINE HCL 20 MG/ML VIAL IV PRN (09:49)
--- NOTE | 2019-08-30 10:14 | Nephrology Consultation ---
Date of Consultation August 30, 2019 Assessment & Plan (1) Acute kidney injury: Mr. Voss admitted to the hospital with change in mental status in the setting of sepsis of unclear source. 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 Developed acute kidney injury in the setting of repeated IV contrast exposure with CT abdomen pelvis with contrast as well as CTA chest for PE evaluation. AIN with vancomycin is possible but seems less likely. Has been having decent urine output, in fact has been net negative. Renal function has been relatively stable over last 3 days, expect renal function to stay stable and slowly start to improve. --monitor urine output, keep close to net even or slightly negative as urine output has been great, do not see any need for diuretics at this time however if urine output drops, okay to use diuretics as needed --no other workup indicated at this time --monitor renal function daily renal panel Will follow Thank you for allowing me to participate in your patient's care. It was a pleasure to see Mr. Voss (2) Hypertension: (3) Proteinuria: (4) Microscopic hematuria: (5) Stage 3a chronic kidney disease: (6) Grade II diastolic dysfunction: History of Present Illness Reason for Consultation: RJ Attending Physician: Shayne Hernandez MD History of Present Illness Mr. Voss is a 7-year-old gentlemen with past medical history significant for stage 3A CKD, hypertension, coronary artery disease admitted to the hospital with change in mental status and possible sepsis. Nephrology consult was requested to manage acute kidney injury. Electronic medical records including labs and imaging are reviewed in detail during patient's visit. Mr. Voss was admitted to the hospital on 08/25/2019 with change in mental status and possible sepsis. On admission temperature was above 38, had leukocytosis however the source of infection was not clear. He was empirically started on vancomycin and Zosyn. Vanc trough level was 23 and it was stopped with concern for effect on kidney function. His currently on linezolid, A mpicillin and Zosyn. All culture has been negative. Has stage III CKD, baseline creatinine 1.3-1.4, most likely secondary to microvascular disease with history of hypertension, coronary artery disease. On admission on 08/25/2019 creatinine was 1.4. He had CT abdomen pelvis with IV contrast on 08/25/2019. Then had CTA chest with PE protocol on 08/28/19. Creatinine started to rise on 08/28/2019, 1.9 which stayed relatively stable over last 2 days. Urine output has been decent fact it has been even or net negative. Blood pressure seems to be running high. Did not receive any NSAID, was not on diuretics before, but received Lasix [address] abdomen pelvis with multiple renal cysts but the otherwise normal size kidney, no hydronephrosis. Urinalysis positive for low-grade proteinuria, microscopic hematuria as well as granular cast and urate crystals. Clinically he feels better, denied any symptom however still seem to have some confusion. Allergies Allergy/AdvReac Type Severity Reaction Status Date / Time No Known Allergies Allergy Unverified 08/25/19 17:47 Home Medications Home Medications Medication Instructions Recorded Confirmed Type aspirin 81 mg PO DAILY 08/18/19 08/25/19 History cholecalciferol (vitamin D3) 1,000 unit PO DAILY 08/18/19 08/25/19 History [Vitamin D3] amlodipine [Norvasc] 5 mg PO QAM #30 tab 08/21/19 08/25/19 Rx atorvastatin [Lipitor] 10 mg PO HS 08/25/19 08/25/19 History calcium carbonate [Calcium 500] 500 mg PO DAILY 08/25/19 08/25/19 History clopidogrel [Plavix] 75 mg PO QAM 08/25/19 08/25/19 History coenzyme Q10 [CoQ-10] 100 mg PO DAILY 08/25/19 08/25/19 History finasteride [Proscar] 5 mg PO DAILY 08/25/19 08/25/19 History lisinopril [Zestril] 2.5 mg PO HS 08/25/19 08/25/19 History Patient History Medical History (Updated 08/30/19 @ 10:35 by Deanna Preciado MD) Aortic aneurysm BPH (benign prostatic hyperplasia) Costochondritis Grade II diastolic dysfunction Hypertension Mild mitral regurgitation Moderate aortic regurgitation Non-ST elevation [place] (NSTEMI) on 08/18/2019 Stage 3a chronic kidney disease Surgical History H/O cardiac catheterization on 08/21/2019 Family History Other No pertinent family history in first degree relatives Social History Preferred Language: Mexican Communication Ability: Effective 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 Beliefs That Will Affect Care: None marital status: Single Current Living Situation: Intermediate Feels Safe at Home: Yes Smoking Status: Never smoker Hx Alcohol Use: No Hx Substance Use: No Review of Systems Review of Systems: All systems reviewed & are unremarkable except as noted in HPI & below Physical Exam Constitutional: WD/WN, vitals as above + ill appearing; no acute distress Eyes: PERRL, conjunctivae normal, anicteric sclerae ENMT: external ear and nose normal, oropharynx normal Ears: no hearing impairment Neck: trachea midline Respiratory: no cough Auscultation: + rales Cardiovascular: Rate/Rhythm: regular rate and regular rhythm Heart Sounds: normal S1 and normal S2 Extremities: no edema Gastrointestinal (Abdomen): Inspection/Auscultation: + abdomen distended and normal bowel sounds Percussion/Palpation: abdomen soft; abdomen nontender, no guarding and abdomen not rigid Musculoskeletal: Extremities: extremities normal to inspection Skin: no rashes, warm and dry Neurologic: awake; no focal motor deficits Psychiatric: A+Ox3, euthymic affect Results & Data Vital Signs (Past 12 Hours) Vital Signs Temp Pulse Pulse Resp BP Pulse Ox 08/30/19 07:17 48 L 48 L 27 H 98 08/30/19 07:00 48 L 29 H 97 08/30/19 06:58 49 L 26 H 168/65 H 97 08/30/19 06:30 49 L 29 H 97 08/30/19 06:28 48 L 24 166/62 H 97 08/30/19 06:00 48 L 26 H 96 08/30/19 05:58 47 L 29 H 166/56 H 96 08/30/19 05:30 48 L 27 H 96 08/30/19 05:28 48 L 26 H 152/66 H 97 08/30/19 05:25 48 L 21 174/53 H 97 08/30/19 05:00 51 L 18 94 08/30/19 04:47 50 L 30 H 94 08/30/19 04:30 47 L 25 H 92 08/30/19 04:28 47 L 29 H 155/53 H 94 08/30/19 04:00 51 L 21 93 08/30/19 03:59 36.4 C L 49 L 32 H 151/60 H 93 08/30/19 03:30 46 L 24 98 08/30/19 03:28 48 L 33 H 174/64 H 99 08/30/19 03:06 46 L 46 L 30 H 94 08/30/19 03:00 46 L 24 94 08/30/19 02:58 48 L 31 H 164/58 H 95 08/30/19 02:30 48 L 23 95 08/30/19 02:28 48 L 21 155/62 H 96 08/30/19 02:00 46 L 29 H 94 08/30/19 01:58 46 L 24 140/53 L 95 08/30/19 01:30 48 L 25 H 95 08/30/19 01:28 48 L 25 H 147/54 H 95 08/30/19 01:11 51 L 26 H 96 08/30/19 01:00 50 L 20 95 08/30/19 00:58 50 L 29 H 171/62 H 94 08/30/19 00:30 51 L 16 95 08/30/19 00:28 51 L 15 161/62 H 97 08/30/19 00:00 36.7 C 53 L 24 97 08/29/19 23:58 51 L 9 L 160/59 H 94 08/29/19 23:30 49 L 23 99 08/29/19 23:28 49 L 16 162/59 H 99 08/29/19 23:24 49 L 28 H 99 08/29/19 23:23 49 L 28 H 99 08/29/19 23:00 50 L 2 L 100 08/29/19 22:58 51 L 3 L 188/66 H 100 08/29/19 22:30 50 L 23 99 08/29/19 22:28 51 L 34 H 158/63 H 97 PG Care Time/CCT Total # of Minutes Spent Total Time Spent with Patient: Total time spent is greater than 50% in coordination of care (as documented) at patient's floor/unit and/or counseling patient: Coding Level of Care Code 80195 Inpt Consult Level 5 Diagnoses Acute kidney injury N17.9 Hypertension I10 Hypertension type: essential hypertension Proteinuria R80.9 Microscopic hematuria R31.29 Stage 3a chronic kidney disease N18.3 Grade II diastolic dysfunction I51.9 (1) Hypertension Hypertension type: essential hypertension Qualified Code(s): I10 - Essential (primary) hypertension
[2019-08-30] MEDS ORDERED: CEFEPIME CONSULT ACTIVE PRN (10:23)
--- NOTE | 2019-08-30 11:08 | Critical Care Progress Note ---
Date of Service August 30, 2019 Assessment & Plan (1) Acute respiratory failure with hypoxia: --Acute hypoxic respite failure Likely secondary to diastolic CHF with 2, ejection fraction 60-65% BNP: 17,000 finding and 65 continue with diuretics as tolerated, maintain n egative balance Continue with BiPAP nightly and PRN shortness of breath Maintain saturation between 90 to 92% --Metabolic encephalopathy Etiology unclear. TSH: 3.85, calcium, sodium within normal limit Patient had CT head at the time of admission 08/25/2019 which was negative for any acute findings. Could be secondary to elevated blood pressure on top of possible sepsis Try to maintain blood pressure less than SBP 160 Continue with broad-spectrum antibiotics Follow-up septic work-up procalcitonin 0.59, follow-up ESR:>90 CRP: 14.1 Influenza negative -- RJ Could be secondary to patient being on vancomycin initially, a Vanco trough of the patient was 23.7 on 08/28/2019 FeNa: 1.2% which goes with intrinsic Monitor BUN/creatinine Avoid nephrotoxic medications Strict ins and outs -- Uncontrolled hypertension Restarted home dose amlodipine and added hydralazine along with Imdur At the blood pressure still not controlled will think about starting nitroglycerin drip --Coronary artery disease Status post CABG with recent cardiac cath showing patent stents July 2019 --Pulmonary hypertension Likely type II --Morbid obesity Plan: 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 Blood pressure medication adjusted. I have personally spent 38 minutes of critical care time in the direct management of this patient. This is a life/limb threatening event. This includes time spent evaluating patient, direct bedside care, chart review, placing orders, interpretation of diagnostic studies, discussion with consultants, patient, and family members, as well as other required patient management activities. This time is exclusive of all separately billable procedures, and teaching time and separate from and in addition to any other critical care service time. Please note the above document was generated using voice recognition software. It may contain grammatical, syntax or spelling errors. (2) Acute on chronic diastolic (congestive) heart failure: (3) Encephalopathy: Subjective Patient seen and examined at bedside. No acute distress, no adverse events overnight. Overnight patient tolerated BiPAP pretty well his respiratory was in the low 20s and high teens. Patient states that he feels better. Denies any chest pain, no nausea or vomiting. Denies any headache, no blurry vision. Patient is still confused about where he is but he knows his name, date of and the president of [facility]. In an outpatient is -690 mL the last 24 hours, afebrile. Review of Systems Review of Systems: All systems reviewed & are unremarkable except as noted in HPI & below Physical Exam Physical Exam: Constitutional: No respiratory distress HEENT: EOMI, PERRLA, Mallampati 4, thick neck Respiratory system: Decreased air entry bilaterally, positive crackles bilateral lower lobes, no wheeze, no rhonchi CVS: S1-S2 positive, no murmurs or gallops, accentuated P2 Abdomen: Soft, nontender, nondistended, positive bowel sounds x4 Extremities: +2 pulses bilaterally radialis/ dorsalis pedis, no cyanosis, +1 edema bilateral lower extremity more on the right side (this has been chronic as per the previous notes likely the site of vein for his CABG) no calor, no dolor Neuro: Awake alert oriented to self Psych: Normal mood and affect G/U: Positive Lau Skin: no rashes, warm and dry Lymphatic: no cervical or axillary lymphadenopathy Results & Data ([facility]) Vital Signs (Past 12 Hours) Vital Signs Temp Pulse Pulse Resp BP Pulse Ox 08/30/19 10:30 52 L 30 H 94 08/30/19 10:29 54 L 30 H 162/63 H 94 08/30/19 10:00 51 L 31 H 94 08/30/19 09:59 53 L 33 H 139/62 96 08/30/19 09:30 51 L 29 H 95 08/30/19 09:28 50 L 17 190/75 H 95 08/30/19 09:00 57 L 23 96 08/30/19 08:59 52 L 20 175/62 H 94 08/30/19 08:30 47 L 23 96 08/30/19 08:28 47 L 27 H 160/55 H 97 08/30/19 08:00 47 L 29 H 97 08/30/19 07:59 36.8 C 48 L 26 H 139/61 98 08/30/19 07:30 47 L 29 H 97 08/30/19 07:28 47 L 28 H 153/60 H 98 08/30/19 07:17 48 L 48 L 27 H 98 08/30/19 07:00 48 L 29 H 97 08/30/19 06:58 49 L 26 H 168/65 H 97 08/30/19 06:30 49 L 29 H 97 08/30/19 06:28 48 L 24 166/62 H 97 08/30/19 06:00 48 L 26 H 96 08/30/19 05:58 47 L 29 H 166/56 H 96 08/30/19 05:30 48 L 27 H 96 08/30/19 05:28 48 L 26 H 152/66 H 97 08/30/19 05:25 48 L 21 174/53 H 97 08/30/19 05:00 51 L 18 94 08/30/19 04:47 50 L 30 H 94 08/30/19 04:30 47 L 25 H 92 08/30/19 04:28 47 L 29 H 155/53 H 94 08/30/19 04:00 51 L 21 93 08/30/19 03:59 36.4 C L 49 L 32 H 151/60 H 93 08/30/19 03:30 46 L 24 98 08/30/19 03:28 48 L 33 H 174/64 H 99 08/30/19 03:06 46 L 46 L 30 H 94 08/30/19 03:00 46 L 24 94 08/30/19 02:58 48 L 31 H 164/58 H 95 08/30/19 02:30 48 L 23 95 08/30/19 02:28 48 L 21 155/62 H 96 08/30/19 02:00 46 L 29 H 94 08/30/19 01:58 46 L 24 140/53 L 95 08/30/19 01:30 48 L 25 H 95 08/30/19 01:28 48 L 25 H 147/54 H 95 08/30/19 01:11 51 L 26 H 96 08/30/19 01:00 50 L 20 95 08/30/19 00:58 50 L 29 H 171/62 H 94 08/30/19 00:30 51 L 16 95 08/30/19 00:28 51 L 15 161/62 H 97 03/04/20 00:00 36.7 C 53 L 24 97 08/29/19 23:58 51 L 9 L 160/59 H 94 08/29/19 23:30 49 L 23 99 08/29/19 23:28 49 L 16 162/59 H 99 08/29/19 23:24 49 L 28 H 99 08/29/19 23:23 49 L 28 H 99 08/30/19 04:26 08/30/19 04:26 Coding Level of Care Code Established Pt Critical Care 1st 30-74 mins Patient Type Established Diagnoses Acute respiratory failure with hypoxia J96.01 Acute on chronic diastolic (congestive) heart failure I50.33 Encephalopathy G93.40 Time Spent (min) 38
[2019-08-30] MEDS: CEFEPIME 2,000 MG in SYRINGE 7.5 ML IV SCH (11:20)
--- NOTE | 2019-08-30 13:31 | Hospitalist Progress Note ---
Date of Service August 30, 2019 Assessment & Plan (1) Acute respiratory failure with hypoxia: Patient was stable in room air all day yesterday. Developed respiratory distress then resp. failure overnight necessitating use of BIPAP, Lasix, steroids, nebs, etc. - Diuresed on 08/26. - Held on 08/27 for RJ. Given single dose of Lasix 40mg IV on 08/28 for further pulmonary edema. Discussed with RN, respiratory care. - Abx were vanc/Zosyn initially, changed to linezolid/Zosyn on 08/27 for RJ. - On 08/28, had worsening respiratory distress and was transferred to the ICU. Abx switched then to cover possible Listeria. Presently on Linezolid, ampicillin, and cefepim. (2) Acute on chronic diastolic (congestive) heart failure: Received 80mg of IV Lasix on 08/26, then 40 mg IV later in the afternoon. - Held Lasix on 08/27 for RJ. - Given Lasix 40mg IV x 1 for pulmonary edema on 08/28 & 08/29. (3) Encephalopathy: Uncertain etiology but leaning towards infectious process of lung causing metabolic encephalopathy. - U/a not suspicious for UTI, flu PCR negative, blood cx's cont to be negative, and abd/pelvic CT without true infectious cause. - CT head negative for acute process. - TSH and B12 wnl. - Plan for LP today with Dr. Brooks to test for meningitis. (4) Leukocytosis: See above in "encephalopathy." Improving today. - Continue abx (5) Duodenitis: As seen on CT at admission. No symptoms from such. Lipase normal and pancreas normal on CT making pancreatitis causing duodenal irritation unlikely. - Cont PPI (6) Cellulitis of right lower extremity without foot: This was noted as an issue on the prior presentation as well; however, I believe these are chronic findings. They have not changed on multiple examinations. - Monitor (7) BPH (benign prostatic hyperplasia): No LUTS complaints. - Cont usual meds from home (8) Hypertension: BP high today at 160/80, but in the context of agitation, confusion. Improved from yesterday with highs as high as 200. - Cont usual meds - Added hydralazine PRN for SBP > 180 given the concern for pulmonary edema. (9) Coronary artery disease: S/p CABG at hospital in [place] years ago. Triple-bypass. Just had heart cath by Dr. Alonso showing patent grafts x 3 during recent admission (1 week ago). - Cont statin, plavix, ASA (10) Non-ST elevation MD (NSTEMI): During recent hospital stay with peak troponin of 10.2. No ischemic symptoms at this time. Heart cath showed patent grafts. - As above (11) Wenckebach second degree AV block: Some type 1, rare type 2 seen on telemetry hospital day #1. - Cardiology aware - Appreciate recs (12) DVT prophylaxis: Heparin 5000 units Q12h -> Holding for LP. Admission and Anticipated Discharge Date Admission Date: August 25, 2019 Subjective Feeling some better. He is still very confused regarding what is going on with his care. Reports no fevers/chills, chest pain, abdominal pain, nausea, or vomi ting. Physical Exam Constitutional: WD/WN, vitals as above cooperative Eyes: EOM intact bilaterally; no conjunctival abnormality ENMT: external ear and nose normal, oropharynx normal Neck: trachea midline, no thyromegaly normal visual inspection Respiratory: normal respiratory effort, lungs clear to auscultation + respiratory distress and + labored breathing Auscultation: + diminished lung sounds, + crackles and + rhonchi Cardiovascular: RRR, no murmur, no edema Gastrointestinal (Abdomen): Inspection/Auscultation: abdomen normal to inspection; abdomen not distended Musculoskeletal: no cyanosis or clubbing, extremities motor strength 5/5 Skin: no rashes, warm and dry Neurologic: moves all extremities and awake Psychiatric: Orientation: alert, oriented to person and cooperative Results & Data ([facility]) Vital Signs (Past 12 Hours) Vital Signs Temp Pulse Pulse Resp BP Pulse Ox 08/30/19 12:30 56 L 33 H 95 08/30/19 12:29 54 L 20 159/77 H 94 08/30/19 12:00 36.8 C 57 L 29 H 95 08/30/19 11:59 57 L 21 165/47 H 96 08/30/19 11:30 54 L 23 96 08/30/19 11:29 57 L 26 H 162/58 H 96 08/30/19 11:04 78 18 95 08/30/19 11:00 58 L 24 94 08/30/19 10:59 54 L 22 161/61 H 95 08/30/19 10:30 52 L 30 H 94 08/30/19 10:29 54 L 30 H 162/63 H 94 08/30/19 10:00 51 L 31 H 94 08/30/19 09:59 53 L 33 H 139/62 96 08/30/19 09:30 51 L 29 H 95 08/30/19 09:28 50 L 17 190/75 H 95 08/30/19 09:00 57 L 23 96 08/30/19 08:59 52 L 20 175/62 H 94 08/30/19 08:30 47 L 23 96 08/30/19 08:28 47 L 27 H 160/55 H 97 08/30/19 08:00 47 L 29 H 97 08/30/19 07:59 36.8 C 48 L 26 H 139/61 98 08/30/19 07:30 47 L 29 H 97 08/30/19 07:28 47 L 28 H 153/60 H 98 08/30/19 07:17 48 L 48 L 27 H 98 08/30/19 07:00 48 L 29 H 97 08/30/19 06:58 49 L 26 H 168/65 H 97 08/30/19 06:30 49 L 29 H 97 08/30/19 06:28 48 L 24 166/62 H 97 08/30/19 06:00 48 L 26 H 96 08/30/19 05:58 47 L 29 H 166/56 H 96 08/30/19 05:30 48 L 27 H 96 08/30/19 05:28 48 L 26 H 152/66 H 97 08/30/19 05:25 48 L 21 174/53 H 97 08/30/19 05:00 51 L 18 94 08/30/19 04:47 50 L 30 H 94 08/30/19 04:30 47 L 25 H 92 08/30/19 04:28 47 L 29 H 155/53 H 94 08/30/19 04:00 51 L 21 93 08/30/19 03:59 36.4 C L 49 L 32 H 151/60 H 93 08/30/19 03:30 46 L 24 98 08/30/19 03:28 48 L 33 H 174/64 H 99 08/30/19 03:06 46 L 46 L 30 H 94 08/30/19 03:00 46 L 24 94 08/30/19 02:58 48 L 31 H 164/58 H 95 08/30/19 02:30 48 L 23 95 08/30/19 02:28 48 L 21 155/62 H 96 08/30/19 02:00 46 L 29 H 94 08/30/19 01:58 46 L 24 140/53 L 95 08/30/19 01:30 48 L 25 H 95 PG Care Time/CCT Total # of Minutes Spent Total Time Spent with Patient: Total time spent is greater than 50% in coordination of care (as documented) at patient's floor/unit and/or counseling patient: Coding Level of Care Code 15554 Subseq Hosp Care Lvl 3 Diagnoses Acute respiratory failure with hypoxia J96.01 Acute on chronic diastolic (congestive) heart failure I50.33 Encephalopathy G93.40 Leukocytosis D72.829 Leukocytosis type: unspecified Duodenitis K29.80 Cellulitis of right lower extremity without foot L03.115 BPH (benign prostatic hyperplasia) N40.0 Hypertension I10 Hypertension type: essential hypertension Coronary artery disease I25.10 Non-ST elevation MD (NSTEMI) I21.4 Wenckebach second degree AV block I44.1 DVT prophylaxis Z29.9 (1) Leukocytosis Leukocytosis type: unspecified Qualified Code(s): D72.829 - Elevated white blood cell count, unspecified (2) Hypertension Hypertension type: essential hypertension Qualified Code(s): I10 - Essential (primary) hypertension
--- NOTE | 2019-08-30 17:49 | Cardiology Progress Note ---
Date of Service August 30, 2019 Assessment & Plan (1) Nayeli second degree AV block: He continues to have some element of heart block. This is 2:1 at times. Likely AV burton in origin. NO overt sx. (2) Non-ST elevation ND (NSTEMI): NO evidence of ACS (3) Moderate aortic regurgitation: Preserved LV systolic function and chamber dimension we will follow this regurgitation over time. (4) Coronary artery disease: Pain bypass graft during his catheterization recently. He will continue on his outpatient medical regimen which consists of aspirin and Plavix and statin (5) Leukocytosis: Unclear etiology. PLanning LP (6) Acute on chronic diastolic (congestive) heart failure: He had an acute decompensation yesterday. .Improved after some diuresis. I think he needs to continue a net negative fluid balance. It is possible that his high BP contributed to his decompensation. I would suggest a NTG infusion fo rBP control and pulmonary vascular congestion. Admission and Anticipated Discharge Date Admission Date: August 25, 2019 Subjective The patient's main concern today was fatigue. He mentioned getting in touch with family members in [facility], but could not recall their contact information. He denies dyspnea. He cannot recall many of the events which occurred yesterday. NO pain. No appetite. Review of Systems Review of Systems: Per HPI Physical Exam Physical Exam: The patient is alert and oriented. Mood and affect appeared normal. He answered all questions appropriately. He did appear to perseverate on some topics and have difficulty finding words at times. HEENT: Pupils are equal and reactive to light and accommodation. Extraocular movements are intact. The sclerae are anicteric. Neuro: Cranial nerves intact Lungs: Bibasilar rales. No wheezing Cardiac: Heart demonstrates a regular rate and rhythm. Normal S1 and S2. Crescendo systolic murmur Pulses: The patient has palpable radial pulses bilaterally that are equal in intensity Extremities: There was no evidence of hypoperfusion. There is no cyanosis or clubbing. Trace lower extremity edema. Skin: I did not appreciate any rashes on examination today. Results & Data ([facility]) Vital Signs (Past 12 Hours) Vital Signs Temp Pulse Pulse Resp BP Pulse Ox Pulse Ox 08/30/19 16:03 97 08/30/19 16:00 53 L 33 H 97 08/30/19 15:59 52 L 29 H 148/48 H 98 08/30/19 15:30 56 L 30 H 96 08/30/19 15:29 58 L 35 H 152/51 H 95 08/30/19 15:21 57 L 31 H 147/66 H 97 08/30/19 15:00 54 L 27 H 99 08/30/19 14:53 69 25 H 96 08/30/19 14:30 55 L 30 H 97 97 08/30/19 14:19 59 L 19 167/79 H 97 08/30/19 14:12 74 26 H 191/73 H 96 08/30/19 14:00 54 L 20 95 08/30/19 13:59 59 L 24 147/52 H 94 08/30/19 13:31 53 L 24 155/57 H 96 08/30/19 13:30 56 L 24 96 08/30/19 13:29 55 L 27 H 161/60 H 96 08/30/19 13:00 53 L 23 96 08/30/19 12:59 53 L 28 H 139/52 L 95 08/30/19 12:30 56 L 33 H 95 08/30/19 12:29 54 L 20 159/77 H 94 08/30/19 12:00 36.8 C 57 L 29 H 95 08/30/19 11:59 57 L 21 165/47 H 96 08/30/19 11:30 54 L 23 96 08/30/19 11:29 57 L 26 H 162/58 H 96 08/30/19 11:04 78 18 95 08/30/19 11:00 58 L 24 94 08/30/19 10:59 54 L 22 161/61 H 95 08/30/19 10:30 52 L 30 H 94 08/30/19 10:29 54 L 30 H 162/63 H 94 08/30/19 10:00 51 L 31 H 94 08/30/19 09:59 53 L 33 H 139/62 96 08/30/19 09:30 51 L 29 H 95 08/30/19 09:28 50 L 17 190/75 H 95 08/30/19 09:00 57 L 23 96 08/30/19 08:59 52 L 20 175/62 H 94 08/30/19 08:30 47 L 23 96 08/30/19 08:28 47 L 27 H 160/55 H 97 08/30/19 08:00 47 L 29 H 97 08/30/19 07:59 36.8 C 48 L 26 H 139/61 98 08/30/19 07:30 47 L 29 H 97 08/30/19 07:28 47 L 28 H 153/60 H 98 08/30/19 07:17 48 L 48 L 27 H 98 08/30/19 07:00 48 L 29 H 97 08/30/19 06:58 49 L 26 H 168/65 H 97 08/30/19 06:30 49 L 29 H 97 08/30/19 06:28 48 L 24 166/62 H 97 08/30/19 06:00 48 L 26 H 96 08/30/19 05:58 47 L 29 H 166/56 H 96 Pulse Ox 08/30/19 16:03 08/30/19 16:00 08/30/19 15:59 08/30/19 15:30 08/30/19 15:29 08/30/19 15:21 08/30/19 15:00 08/30/19 14:53 08/30/19 14:30 95 08/30/19 14:19 08/30/19 14:12 08/30/19 14:00 08/30/19 13:59 08/30/19 13:31 08/30/19 13:30 08/30/19 13:29 08/30/19 13:00 08/30/19 12:59 08/30/19 12:30 08/30/19 12:29 08/30/19 12:00 08/30/19 11:59 08/30/19 11:30 08/30/19 11:29 08/30/19 11:04 08/30/19 11:00 08/30/19 10:59 08/30/19 10:30 08/30/19 10:29 08/30/19 10:00 08/30/19 09:59 08/30/19 09:30 08/30/19 09:28 08/30/19 09:00 08/30/19 08:59 08/30/19 08:30 08/30/19 08:28 08/30/19 08:00 08/30/19 07:59 08/30/19 07:30 08/30/19 07:28 08/30/19 07:17 08/30/19 07:00 08/30/19 06:58 08/30/19 06:30 08/30/19 06:28 08/30/19 06:00 08/30/19 05:58 Laboratory Results Abnormal Lab Results 08/29/19 08/29/19 08/29/19 08:45 19:58 19:58 WBC RBC Hgb Hct MCV MCH MCHC RDW Std Deviation RDW Coeff of Marisol Plt Count MPV ESR > 90 H Sodium Potassium Chloride Carbon Dioxide Anion Gap BUN Creatinine Est Cr Clr Drug Dosing Est GFR ( Amer) Est GFR (Non-Af Amer) BUN/Creatinine Ratio Glucose Lactate 2.0 Calcium Phosphorus Magnesium C-Reactive Protein 16.70 H NT-Pro-B Natriuret Pep Procalcitonin Urine Color Urine Appearance Urine pH Ur Specific Whigham Urine Protein Urine Glucose (UA) Urine Ketones Urine Blood Urine Nitrite Urine Bilirubin Urine Urobilinogen Ur Leukocyte Esterase Urine RBC Urine WBC Ur Epithelial Cells Uric Acid Crystals Amorphous Sediment Urine Bacteria Hyaline Casts Urine Osmolality Ur Random Creatinine Ur Random Sodium Ur Random Potassium Ur Random Chloride Ur Random Uric Acid Urine Sodium Urine Potassium Urine Chloride 08/29/19 08/30/19 08/30/19 19:59 04:26 04:26 WBC 12.10 H RBC 3.36 L Hgb 10.7 L Hct 32.9 L MCV 97.9 MCH 31.8 MCHC 32.5 RDW Std Deviation 52.2 H RDW Coeff of Marisol 14.6 H Plt Count 295 MPV 11.2 H ESR Sodium 142 143 Potassium 3.5 3.5 Chloride 108 H 110 H Carbon Dioxide 26 26 Anion Gap 7.0 7.0 BUN 31 H 35 H Creatinine 1.85 H 1.88 H Est Cr Clr Drug Dosing 38.7 38.0 Est GFR ( Amer) 39.0 38.2 Est GFR (Non-Af Amer) 33.6 33.0 BUN/Creatinine Ratio 16.6 18.5 Glucose 162 H 142 H Lactate Calcium 8.7 8.5 Phosphorus 2.8 3.4 Magnesium 2.5 H 2.5 H C-Reactive Protein NT-Pro-B Natriuret Pep 63068 H Procalcitonin Urine Color Urine Appearance Urine pH Ur Specific Whigham Urine Protein Urine Glucose (UA) Urine Ketones Urine Blood Urine Nitrite Urine Bilirubin Urine Urobilinogen Ur Leukocyte Esterase Urine RBC Urine WBC Ur Epithelial Cells Uric Acid Crystals Amorphous Sediment Urine Bacteria Hyaline Casts Urine Osmolality Ur Random Creatinine Ur Random Sodium Ur Random Potassium Ur Random Chloride Ur Random Uric Acid Urine Sodium Urine Potassium Urine Chloride 08/30/19 08/30/19 08/30/19 04:26 07:00 07:00 WBC RBC Hgb Hct MCV MCH MCHC RDW Std Deviation RDW Coeff of Marisol Plt Count MPV ESR Sodium Potassium Chloride Carbon Dioxide Anion Gap BUN Creatinine Est Cr Clr Drug Dosing Est GFR ( Amer) Est GFR (Non-Af Amer) BUN/Creatinine Ratio Glucose Lactate Calcium Phosphorus Magnesium C-Reactive Protein NT-Pro-B Natriuret Pep Procalcitonin 0.60 H Urine Color Urine Appearance Urine pH Ur Specific Whigham Urine Protein Urine Glucose (UA) Urine Ketones Urine Blood Urine Nitrite Urine Bilirubin Urine Urobilinogen Ur Leukocyte Esterase Urine RBC Urine WBC Ur Epithelial Cells Uric Acid Crystals Amorphous Sediment Urine Bacteria Hyaline Casts Urine Osmolality Ur Random Creatinine 92.6 Cancelled Ur Random Sodium Ur Random Potassium Ur Random Chloride Cancelled Ur Random Uric Acid 22.8 Urine Sodium 88 Urine Potassium 32.1 Urine Chloride 90 08/30/19 08/30/19 08/30/19 07:00 07:00 07:00 WBC RBC Hgb Hct MCV MCH MCHC RDW Std Deviation RDW Coeff of Marisol Plt Count MPV ESR Sodium Potassium Chloride Carbon Dioxide Anion Gap BUN Creatinine Est Cr Clr Drug Dosing Est GFR ( Amer) Est GFR (Non-Af Amer) BUN/Creatinine Ratio Glucose Lactate Calcium Phosphorus Magnesium C-Reactive Protein NT-Pro-B Natriuret Pep Procalcitonin Urine Color Urine Appearance Urine pH Ur Specific Whigham Urine Protein Urine Glucose (UA) Urine Ketones Urine Blood Urine Nitrite Urine Bilirubin Urine Urobilinogen Ur Leukocyte Esterase Urine RBC Urine WBC Ur Epithelial Cells Uric Acid Crystals Amorphous Sediment Urine Bacteria Hyaline Casts Urine Osmolality 490 L Ur Random Creatinine Ur Random Sodium Cancelled Ur Random Potassium Cancelled Ur Random Chloride Ur Random Uric Acid Urine Sodium Urine Potassium Urine Chloride 08/30/19 08/30/19 07:00 07:00 WBC RBC Hgb Hct MCV MCH MCHC RDW Std Deviation RDW Coeff of Marisol Plt Count MPV ESR Sodium Potassium Chloride Carbon Dioxide Anion Gap BUN Creatinine Est Cr Clr Drug Dosing Est GFR ( Amer) Est GFR (Non-Af Amer) BUN/Creatinine Ratio Glucose Lactate Calcium Phosphorus Magnesium C-Reactive Protein NT-Pro-B Natriuret Pep Procalcitonin Urine Color Yellow Urine Appearance Cloudy A Urine pH 5.5 Ur Specific Whigham 1.025 Urine Protein 1+ H Urine Glucose (UA) Negative Urine Ketones Negative Urine Blood 3+ H Urine Nitrite Negative Urine Bilirubin Negative Urine Urobilinogen Negative Ur Leukocyte Esterase Negative Urine RBC >30 H Urine WBC 10-30 H Ur Epithelial Cells 10-20 H Uric Acid Crystals Present A Amorphous Sediment Present A Urine Bacteria Negative Hyaline Casts 0-5 Urine Osmolality Ur Random Creatinine Ur Random Sodium Ur Random Potassium Ur Random Chloride Ur Random Uric Acid Cancelled Urine Sodium Urine Potassium Urine Chloride PG Care Time/CCT Total # of Minutes Spent Total Time Spent with Patient: Total time spent is greater than 50% in coordination of care (as documented) at patient's floor/unit and/or counseling patient: Coding Level of Care Code 59998 Subseq Hosp Care Lvl 3 Diagnoses Wenckebach second degree AV block I44.1 Non-ST elevation ND (NSTEMI) I21.4 Moderate aortic regurgitation I35.1 Coronary artery disease I25.10 Leukocytosis D72.829 Leukocytosis type: unspecified Acute on chronic diastolic (congestive) heart failure I50.33 (1) Leukocytosis Leukocytosis type: unspecified Qualified Code(s): D72.829 - Elevated white blood cell count, unspecified
--- NOTE | 2019-08-30 18:22 | Procedure Note ---
Procedure Note Date of Service August 30, 2019 INDICATION: Metabolic encephalopathy Performing PHYSICIAN: Víctor Brooks MD CONSENT: Consent was obtained from sister Beverly along with patient prior to the procedure. Indications, risks, and benefits were explained at length. PROCEDURE SUMMARY: A time-out was performed. My hands were washed immediately prior to the procedure. Aseptic precautions were taken including mask with protective eyewear, sterile gown and sterile gloves throughout the procedure. The patient was placed in the sitting up position with help from the nursing staff. The area was cleansed and draped in usual sterile fashion using betadine scrub. Anesthesia was achieved with 1% lidocaine. A 20-gauge 3.5-inch spinal needle was placed in the T4 lumbar interspace. On the second attempt, clear cerebral spinal fluid was obtained. The opening pressure was 35 cm H20. CSF was collected into 4 tubes. These were sent for the usual tests. A sterile bandaid was placed over the puncture site. The patient had no immediate complications and tolerated the procedure well. Complication: None Estimated blood loss: Less than 1 cc Coding CPT Codes Lumbar Puncture - Lumbar Puncture, Diagnostic: 69465 Lumbar Puncture, Diagnostic ([id number]) [facility] Procedure Codes (Charges) Lumbar Puncture Lumbar Puncture, Diagnostic: 80700 Lumbar Puncture, Diagnostic
[2019-08-30 18:35] LABS: Appearance CSF Clear; CSF Count Tube # 3; CSF Xanthrochromic No xanthochromia; Color CSF Colorless; Red Blood Cell CSF (A) 0 /uL (0-); Red Blood Cell CSF (B) 0 /uL (0-); White Blood Cell CSF (A) 0 /uL (0-5); White Blood Cell CSF (B) 0 /uL (0-5)
[2019-08-30 18:49] LABS: CSF Glucose 89 mg/dl (40-70)
[2019-08-30 19:01] LABS: CSF Chemistry Tube # 1
[2019-08-30] MEDS ORDERED: FUROSEMIDE 40 MG in SYRINGE 0 ML IV STA (19:05)
[2019-08-30] MEDS: AMLODIPINE BESYLATE 5 MG TAB PO SCH (19:30)
[2019-08-30] MEDS: HydrALAZINE TAB 50 MG TAB PO SCH ×2 (19:30→21:14)
[2019-08-30 20:50] LABS: Escherichia coli K1 PCR Not Detected (NotDetected)
[2019-08-30 20:51] LABS: Cryptococcus neoformans/ga PCR Not Detected (NotDetected); Cytomegalovirus PCR Not Detected (NotDetected); Enterovirus PCR Not Detected (NotDetected); Haemophilius influenzae PCR Not Detected (NotDetected); Herpes Simplex Virus 1 PCR Not Detected (NotDetected); Herpes Simplex Virus 2 PCR Not Detected (NotDetected); Human Herpes Virus 6 PCR Not Detected (NotDetected); Human Parechovirus PCR Not Detected (NotDetected); Listeria monocytogenes PCR Not Detected (NotDetected); Neisseria meningitidis PCR Not Detected (NotDetected); Streptococcus agalactiae PCR Not Detected (NotDetected); Streptococcus pneumoniae PCR Not Detected (NotDetected); Varicella Zoster Virus PCR Not Detected (NotDetected)
[2019-08-31] MEDS: CEFEPIME 2,000 MG in SYRINGE 7.5 ML IV SCH (00:50)
[2019-08-31] MEDS: ALBUT/IPRATROP 3MG/0.5MG NEB 3 ML VIAL NEB SCH ×6 (02:28→22:17)
[2019-08-31] MEDS: AMPICILLIN 2,000 MG in SODIUM CHLOR 0.9% AD-VAN 50 ML IV SCH (04:23)
[2019-08-31 05:26] LABS: Basophils # (auto) 0.03 K/uL (0-0.2); Basophils % (auto) 0.2 %; Eosinophils # (auto) 0.13 K/uL (0-0.5); Eosinophils % (auto) 1.1 %; Hematocrit (blood only) 34.2 % (42-52); Hemoglobin 10.9 g/dL (14.0-18.0); Immature Granulocytes # (auto) 0.15 K/uL (0.00-0.02); Immature Granulocytes % (auto) 1.2 %; Lymphocytes # (auto) 0.88 K/uL (1.2-3.4); Lymphocytes % (auto) 7.3 %; Mean Corpuscular Hgb Conc 31.9 g/dL (32-36); Mean Corpuscular Volume 100.3 fL (80-100); Mean Platelet Volume 11.8 fL (7.4-10.4); Monocytes # (auto) 0.78 K/uL (0.11-0.59); Monocytes % (auto) 6.5 %; Neutrophils # (auto) 10.09 K/uL (1.4-6.5); Neutrophils % (auto) 83.7 %; Nucleated RBC # (auto) 0.02 K/uL (0-0); Nucleated RBC % (auto) 0.2 %; Platelet Count 317 K/uL (130-400); RDW Coefficient of Variation 14.7 % (11.5-14.5); RDW Standard Deviation 53.5 fL (36.4-46.3); Red Blood Count 3.41 M/uL (4.7-6.1); White Blood Count 12.06 K/uL (4.8-10.8)
[2019-08-31] MEDS: LINEZOLID 600 MG/300 ML BAG IV SCH (05:27)
[2019-08-31 05:35] LABS: Albumin Level 1.9 gm/dl (3.4-5.0); BUN Creatinine Ratio 21.8 (10-20); Calcium 8.4 mg/dl (8.5-10.1); Creatinine Clr Calc Pharmacy 37.7 ml/min; Magnesium 2.3 mg/dl (1.8-2.4); Potassium 3.6 mmol/L (3.5-5.1)
[2019-08-31 05:53] LABS: Albumin Globulin Ratio 0.4 (0.9-2); Bilirubin,Total 0.4 mg/dl (0.2-1); Globulin 4.9 gm/dl (2.5-4.0); Phosphorus 4.4 mg/dl (2.5-4.9); Total Protein 6.8 gm/dl (6.4-8.2)
[2019-08-31] MEDS: BUDESONIDE 0.5 MG/2 ML VIAL (PULMICORT) NEB SCH ×2 (07:17→18:57)
[2019-08-31] MEDS: HydrALAZINE TAB 50 MG TAB PO SCH ×2 (07:48→13:59)
[2019-08-31] MEDS: PANTOprazole 40 MG TAB PO SCH (07:49)
[2019-08-31] MEDS: HEPARIN SOD 5,000 UNIT/0.5 ML VIAL SQ SCH ×2 (07:49→20:07)
[2019-08-31] MEDS: ISOSORBIDE MONO EXTENDED REL 30 MG TABCR PO SCH (07:49)
[2019-08-31] MEDS: AMLODIPINE BESYLATE 5 MG TAB PO SCH (07:49)
[2019-08-31] MEDS: DOXYCYCLINE HYCLATE 100 MG CAP PO SCH ×2 (07:50→20:07)
--- NOTE | 2019-08-31 09:07 | Nephrology Progress Note ---
Date of Service August 31, 2019 Assessment & Plan (1) Acute kidney injury: Mr. Voss admitted to the hospital with change in mental status in the setting of sepsis of unclear source. 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 Developed acute kidney injury in the setting of repeated IV contrast exposure with CT abdomen pelvis with contrast as well as CTA chest for PE evaluation. AIN with vancomycin is possible but seems less likely. Has been having decent urine output, in fact has been net negative. Renal function has been relatively stable, no improvement yet however electrolyte, blood pressure, volume status acceptable. expect renal function to stay stable and slowly start to improve. --monitor intake and output, keep close to net even, do not see any need for diuretics at this time however if urine output drops, okay to use diuretics as needed --monitor renal function daily renal panel Will follow (2) Hypertension: (3) Proteinuria: (4) Microscopic hematuria: (5) Stage 3a chronic kidney disease: (6) Grade II diastolic dysfunction: Subjective Mr. Voss was seen and examined this am. Denies any symptoms but still seems to have some confusion and repeatedly asking why he is here and why he is not able to do exercise. BP fair, UO decent. Renal function stable, electrolytes acceptable. Review of Systems Review of Systems: All systems reviewed & are unremarkable except as noted in HPI & below Physical Exam Constitutional: well developed and well nourished; no acute distress Respiratory: normal respiratory effort, lungs clear to auscultation Cardiovascular: RRR, no murmur, no edema Neurologic: moves all extremities and awake; not confused Psychiatric: A+Ox3, euthymic affect Results & Data Vital Signs (Past 12 Hours) Vital Signs Temp Pulse Pulse Resp BP Pulse Ox 08/31/19 07:36 59 L 22 99 08/31/19 06:00 54 L 28 H 142/59 H 97 08/31/19 05:29 55 L 28 H 135/58 L 95 08/31/19 04:59 36.8 C 50 L 20 145/49 H 95 08/31/19 04:29 57 L 29 H 140/52 L 95 08/31/19 03:59 52 L 24 118/46 L 94 08/31/19 03:30 70 19 143/52 H 95 08/31/19 02:59 57 L 27 H 135/46 L 96 08/31/19 02:30 57 L 53 L 19 96 08/31/19 02:29 61 28 H 156/51 H 97 08/31/19 01:59 57 L 26 H 159/46 H 97 08/31/19 01:29 54 L 32 H 134/45 L 96 08/31/19 00:59 36.7 C 54 L 15 137/46 L 96 08/31/19 00:29 49 L 16 143/39 H 94 08/31/19 00:00 57 L 19 96 08/30/19 23:59 49 L 17 137/49 L 97 08/30/19 23:57 55 L 26 H 98 08/30/19 23:31 52 L 19 96 08/30/19 23:29 48 L 15 119/50 L 98 08/30/19 23:25 55 L 26 H 98 08/30/19 23:00 51 L 27 H 97 08/30/19 22:59 55 L 22 139/55 L 97 08/30/19 22:30 60 22 98 08/30/19 22:29 62 20 170/52 H 98 08/30/19 22:00 56 L 20 97 08/30/19 21:59 60 22 144/51 H 97 08/30/19 21:30 59 L 19 98 08/30/19 21:29 57 L 22 164/54 H 98 PG Care Time/CCT Total # of Minutes Spent Total Time Spent with Patient: Total time spent is greater than 50% in coordination of care (as documented) at patient's floor/unit and/or counseling patient: Coding Level of Care Code 36501 Subseq Hosp Care Lvl 3 Diagnoses Acute kidney injury N17.9 Hypertension I10 Hypertension type: essential hypertension Proteinuria R80.9 Microscopic hematuria R31.29 Stage 3a chronic kidney disease N18.3 Grade II diastolic dysfunction I51.9 (1) Hypertension Hypertension type: essential hypertension Qualified Code(s): I10 - Essential (primary) hypertension
[2019-08-31] MEDS ORDERED: ISOSORBIDE MONO EXTENDED REL 30 MG TABCR PO STA (11:19)
[2019-08-31] MEDS: ISOSORBIDE MONO EXTENDED REL 60 MG TABCR PO SCH (11:22)
--- NOTE | 2019-08-31 11:39 | Critical Care Progress Note ---
Date of Service August 31, 2019 Assessment & Plan (1) Acute respiratory failure with hypoxia: --Acute hypoxic respite failure Likely secondary to diastolic CHF with 2, ejection fraction 60-65%, with possible PNA, Improved BNP: 17,000 finding and 65 continue with diuretics as tolerated, maintain negative balance Continue with BiPAP nightly and PRN shortness of breath Maintain saturation between 90 to 92% --Metabolic encephalopathy Etiology unclear. TSH: 3.85, calcium, sodium within normal limit Patient had CT head at the time of admission 08/25/2019 which was negative for any acute findings. Likely sec to elevated BP. Try to maintain blood pressure less than SBP 160 Follow-up septic work-up procalcitonin 0.59, ESR:>90 CRP: 14.1, Blood Cx -ve to date Influenza negative CSF fluid negative for viruses and bacteria PCR. VDRL and Lyme titer Pending Patient did have elevated protein in the CSF. Will get MRI of brain without contrast -- RJ Could be secondary to patient being on vancomycin initially, a Vanco trough of the patient was 23.7 on 08/28/2019 on top of contrast for CTA FeNa: 1.2% which goes with intrinsic Monitor BUN/creatinine Avoid nephrotoxic medications Strict ins and outs Nephrology on board -- Uncontrolled hypertension Restarted home dose amlodipine and added hydralazine along with Imdur --Coronary artery disease Status post CABG with recent cardiac cath showing patent stents July 2019 --Pulmonary hypertension Likely type II --Morbid obesity Needs sleep study as an outpatient. Plan: Discontinue antibiotics except Doxycycline. F/u Lyme and VDRL titers. Hemodynamically stable to be DG to medical floor. F/u CXR from today. Can JAYE fernandez. F/u MRI brain I have personally spent 37 minutes of critical care time in the direct management of this patient. This is a life/limb threatening event. This includes time spent evaluating patient, direct bedside care, chart review, placing orders, interpretation of diagnostic studies, discussion with consultants, patient, and family members, as well as other required patient management activities. This time is exclusive of all separately billable procedures, and teaching time and separate from and in addition to any other critical care service time. Please note the above document was generated using voice recognition software. It may contain grammatical, syntax or spelling errors. (2) Acute on chronic diastolic (congestive) heart failure: (3) Encephalopathy: Subjective Patient seen and examined at bedside. NAD, LA overnight. Denies any SAMUEL, no N or V. No blurry vision. Patient is more alret today. Still has been asking about this camp that he went to. Tolerating diet. -ve balance on In's and Out's Review of Systems Review of Systems: All systems reviewed & are unremarkable except as noted in HPI & below Physical Exam Physical Exam: Constitutional: No respiratory distress HEENT: EOMI, PERRLA, Mallampati 4, thick neck Respiratory system: Decreased air entry bilaterally, positive crackles bilateral lower lobes, no wheeze, no rhonchi CVS: S1-S2 positive, no murmurs or gallops, accentuated P2 Abdomen: Soft, nontender, nondistended, positive bowel sounds x4 Extremities: +2 pulses bilaterally radialis/ dorsalis pedis, no cyanosis, +1 edema bilateral lower extremity more on the right side (this has been chronic as per the previous notes likely the site of vein for his CABG) no calor, no dolor Neuro: Awake alert oriented * 3 today Psych: Normal mood and affect G/U: Positive Fernandez Skin: no rashes, warm and dry Lymphatic: no cervical or axillary lymphadenopathy Results & Data ([facility]) Vital Signs (Past 12 Hours) Vital Signs Temp Pulse Pulse Resp BP BP Pulse Ox 08/31/19 11:13 81 22 95 08/31/19 10:48 36.2 C L 67 20 148/64 H 93 08/31/19 10:00 60 08/31/19 07:36 59 L 22 99 08/31/19 06:00 54 L 28 H 142/59 H 97 08/31/19 05:29 55 L 28 H 135/58 L 95 08/31/19 04:59 36.8 C 50 L 20 145/49 H 95 08/31/19 04:29 57 L 29 H 140/52 L 95 08/31/19 03:59 52 L 24 118/46 L 94 08/31/19 03:30 70 19 143/52 H 95 08/31/19 02:59 57 L 27 H 135/46 L 96 08/31/19 02:30 57 L 53 L 19 96 08/31/19 02:29 61 28 H 156/51 H 97 08/31/19 01:59 57 L 26 H 159/46 H 97 08/31/19 01:29 54 L 32 H 134/45 L 96 08/31/19 00:59 36.7 C 54 L 15 137/46 L 96 08/31/19 00:29 49 L 16 143/39 H 94 08/31/19 00:00 57 L 19 96 08/30/19 23:59 49 L 17 137/49 L 97 08/30/19 23:57 55 L 26 H 98 08/30/19 23:31 52 L 19 96 08/30/19 23:29 48 L 15 119/50 L 98 08/31/19 04:27 08/31/19 04:27 Microbiology 08/25/19 19:38 Blood Aerobic Blood Culture - Final No growth in Aerobic bottle after 5 days. 08/25/19 19:38 Blood Anaerobic Blood Culture - Final No growth in Anaerobic bottle after 5 days. 08/25/19 18:17 Blood Aerobic Blood Culture - Final No growth in Aerobic bottle after 5 days. 08/25/19 18:17 Blood Anaerobic Blood Culture - Final 08/30/19 18:00 Cerebral Spinal Fluid Gram Stain - Final 08/28/19 17:30 Urine,Indwelling Cath Urine Culture - Final No growth - less than 1,000 colonies/mL. 08/31/19 08/31/19 08/30/19 Range/Units 04:27 04:27 18:06 WBC 12.06 H (4.8-10.8) K/uL RBC 3.41 L (4.7-6.1) M/uL Hgb 10.9 L (14.0-18.0) g/dL Hct 34.2 L (42-52) % MCV 100.3 H (80-100) fL MCH 32.0 (25-34) pg MCHC 31.9 L (32-36) g/dL RDW Std Deviation 53.5 H (36.4-46.3) fL RDW Coeff of Marisol 14.7 H (11.5-14.5) % Plt Count 317 (130-400) K/uL MPV 11.8 H (7.4-10.4) fL Immature Gran % (Auto) 1.2 % Neut % (Auto) 83.7 % Lymph % (Auto) 7.3 % [place] % (Auto) 6.5 % Eos % (Auto) 1.1 % Baso % (Auto) 0.2 % Immature Gran # (Auto) 0.15 H (0.00-0.02) K/uL Neut # (Auto) 10.09 H (1.4-6.5) K/uL Lymph # (Auto) 0.88 L (1.2-3.4) K/uL [place] # (Auto) 0.78 H (0.11-0.59) K/uL Eos # (Auto) 0.13 (0-0.5) K/uL Baso # (Auto) 0.03 (0-0.2) K/uL Absolute Nucleated RBC 0.02 H (0-0) K/uL Nucleated RBC % (auto) 0.2 % Sodium 143 (136-145) mmol/L Potassium 3.6 (3.5-5.1) mmol/L Chloride 109 H (98-107) mmol/L Carbon Dioxide 28 (21-32) mmol/L Anion Gap 6.0 (3-11) BUN 42 H (7-18) mg/dl Creatinine 1.93 H (0.6-1.4) mg/dl Est Cr Clr Drug Dosing 37.7 ml/min Est GFR ( Amer) 37.0 Est GFR (Non-Af Amer) 32.0 BUN/Creatinine Ratio 21.8 H (10-20) Glucose 134 H (70-99) mg/dl POC Glucose 168 H (70-99) mg/dl Calcium 8.4 L (8.5-10.1) mg/dl Phosphorus 4.4 D (2.5-4.9) mg/dl Magnesium 2.3 (1.8-2.4) mg/dl Total Bilirubin 0.4 (0.2-1) mg/dl AST 38 H (15-37) U/L ALT 78 (12-78) U/L Alkaline Phosphatase 63 (45-117) U/L Total Protein 6.8 (6.4-8.2) gm/dl Albumin 1.9 L (3.4-5.0) gm/dl Globulin 4.9 H (2.5-4.0) gm/dl Albumin/Globulin Ratio 0.4 L (0.9-2) Fld Lyme DNA (PCR) CSF Appearance CSF Color Xanthrochromic CSF WBC (0-5) /uL CSF RBC (0-) /uL CSF Cell Count Tube # CSF Chemistry Tube # CSF Glucose (40-70) mg/dl CSF Total Protein (15-45) mg/dl CSF VDRL CSF C.neoform/gat PCR (NotDetected) CSF CMV DNA (PCR) (NotDetected) CSF Enterovirus (PCR) (NotDetected) CSF E. coli K1 (PCR) (NotDetected) CSF H. influenzae (PCR) (NotDetected) CSF HSV I (PCR) (NotDetected) CSF HSV II (PCR) (NotDetected) CSF HHV 6 (PCR) (NotDetected) CSF L.monocytogenes PCR (NotDetected) CSF N. meningitidis PCR (NotDetected) CSF Parechovirus (PCR) (NotDetected) CSF S. agalactiae (PCR) (NotDetected) CSF S. pneumoniae (PCR) (NotDetected) CSF VZV DNA (PCR) (NotDetected) CSF West Nile RNA Lyme Specimen Source 08/30/19 08/30/19 08/30/19 Range/Units 18:00 18:00 18:00 WBC (4.8-10.8) K/uL RBC (4.7-6.1) M/uL Hgb (14.0-18.0) g/dL Hct (42-52) % MCV (80-100) fL MCH (25-34) pg MCHC (32-36) g/dL RDW Std Deviation (36.4-46.3) fL RDW Coeff of Marisol (11.5-14.5) % Plt Count (130-400) K/uL MPV (7.4-10.4) fL Immature Gran % (Auto) % Neut % (Auto) % Lymph % (Auto) % [place] % (Auto) % Eos % (Auto) % Baso % (Auto) % Immature Gran # (Auto) (0.00-0.02) K/uL Neut # (Auto) (1.4-6.5) K/uL Lymph # (Auto) (1.2-3.4) K/uL [place] # (Auto) (0.11-0.59) K/uL Eos # (Auto) (0-0.5) K/uL Baso # (Auto) (0-0.2) K/uL Absolute Nucleated RBC (0-0) K/uL Nucleated RBC % (auto) % Sodium (136-145) mmol/L Potassium (3.5-5.1) mmol/L Chloride (98-107) mmol/L Carbon Dioxide (21-32) mmol/L Anion Gap (3-11) BUN (7-18) mg/dl Creatinine (0.6-1.4) mg/dl Est Cr Clr Drug Dosing ml/min Est GFR ( Amer) Est GFR (Non-Af Amer) BUN/Creatinine Ratio (10-20) Glucose (70-99) mg/dl POC Glucose (70-99) mg/dl Calcium (8.5-10.1) mg/dl Phosphorus (2.5-4.9) mg/dl Magnesium (1.8-2.4) mg/dl Total Bilirubin (0.2-1) mg/dl AST (15-37) U/L ALT (12-78) U/L Alkaline Phosphatase (45-117) U/L Total Protein (6.4-8.2) gm/dl Albumin (3.4-5.0) gm/dl Globulin (2.5-4.0) gm/dl Albumin/Globulin Ratio (0.9-2) Fld Lyme DNA (PCR) Pending CSF Appearance CSF Color Xanthrochromic CSF WBC (0-5) /uL CSF RBC (0-) /uL CSF Cell Count Tube # CSF Chemistry Tube # CSF Glucose (40-70) mg/dl CSF Total Protein 78.3 H (15-45) mg/dl CSF VDRL Pending CSF C.neoform/gat PCR Not Detected (NotDetected) CSF CMV DNA (PCR) Not Detected (NotDetected) CSF Enterovirus (PCR) Not Detected (NotDetected) CSF E. coli K1 (PCR) Not Detected (NotDetected) CSF H. influenzae (PCR) Not Detected (NotDetected) CSF HSV I (PCR) Not Detected (NotDetected) CSF HSV II (PCR) Not Detected (NotDetected) CSF HHV 6 (PCR) Not Detected (NotDetected) CSF L.monocytogenes PCR Not Detected (NotDetected) CSF N. meningitidis PCR Not Detected (NotDetected) CSF Parechovirus (PCR) Not Detected (NotDetected) CSF S. agalactiae (PCR) Not Detected (NotDetected) CSF S. pneumoniae (PCR) Not Detected (NotDetected) CSF VZV DNA (PCR) Not Detected (NotDetected) CSF West Nile RNA Lyme Specimen Source Pending 08/30/19 08/30/19 08/30/19 Range/Units 18:00 18:00 18:00 WBC (4.8-10.8) K/uL RBC (4.7-6.1) M/uL Hgb (14.0-18.0) g/dL Hct (42-52) % MCV (80-100) fL MCH (25-34) pg MCHC (32-36) g/dL RDW Std Deviation (36.4-46.3) fL RDW Coeff of Marisol (11.5-14.5) % Plt Count (130-400) K/uL MPV (7.4-10.4) fL Immature Gran % (Auto) % Neut % (Auto) % Lymph % (Auto) % [place] % (Auto) % Eos % (Auto) % Baso % (Auto) % Immature Gran # (Auto) (0.00-0.02) K/uL Neut # (Auto) (1.4-6.5) K/uL Lymph # (Auto) (1.2-3.4) K/uL [place] # (Auto) (0.11-0.59) K/uL Eos # (Auto) (0-0.5) K/uL Baso # (Auto) (0-0.2) K/uL Absolute Nucleated RBC (0-0) K/uL Nucleated RBC % (auto) % Sodium (136-145) mmol/L Potassium (3.5-5.1) mmol/L Chloride (98-107) mmol/L Carbon Dioxide (21-32) mmol/L Anion Gap (3-11) BUN (7-18) mg/dl Creatinine (0.6-1.4) mg/dl Est Cr Clr Drug Dosing ml/min Est GFR ( Amer) Est GFR (Non-Af Amer) BUN/Creatinine Ratio (10-20) Glucose (70-99) mg/dl POC Glucose (70-99) mg/dl Calcium (8.5-10.1) mg/dl Phosphorus (2.5-4.9) mg/dl Magnesium (1.8-2.4) mg/dl Total Bilirubin (0.2-1) mg/dl AST (15-37) U/L ALT (12-78) U/L Alkaline Phosphatase (45-117) U/L Total Protein (6.4-8.2) gm/dl Albumin (3.4-5.0) gm/dl Globulin (2.5-4.0) gm/dl Albumin/Globulin Ratio (0.9-2) Fld Lyme DNA (PCR) Cancelled CSF Appearance Clear CSF Color Colorless Xanthrochromic No xanthochromia CSF WBC 0 (0-5) /uL CSF RBC 0 (0-) /uL CSF Cell Count Tube # 3 CSF Chemistry Tube # 1 CSF Glucose 89 H (40-70) mg/dl CSF Total Protein (15-45) mg/dl CSF VDRL CSF C.neoform/gat PCR (NotDetected) CSF CMV DNA (PCR) (NotDetected) CSF Enterovirus (PCR) (NotDetected) CSF E. coli K1 (PCR) (NotDetected) CSF H. influenzae (PCR) (NotDetected) CSF HSV I (PCR) (NotDetected) CSF HSV II (PCR) (NotDetected) CSF HHV 6 (PCR) (NotDetected) CSF L.monocytogenes PCR (NotDetected) CSF N. meningitidis PCR (NotDetected) CSF Parechovirus (PCR) (NotDetected) CSF S. agalactiae (PCR) (NotDetected) CSF S. pneumoniae (PCR) (NotDetected) CSF VZV DNA (PCR) (NotDetected) CSF West Nile RNA Lyme Specimen Source Cancelled 08/30/19 Range/Units 18:00 Fld Lyme DNA (PCR) CSF Appearance CSF Color Xanthrochromic CSF WBC (0-5) /uL CSF RBC (0-) /uL CSF Cell Count Tube # CSF Chemistry Tube # CSF Glucose (40-70) mg/dl CSF Total Protein (15-45) mg/dl CSF VDRL CSF C.neoform/gat PCR (NotDetected) CSF CMV DNA (PCR) (NotDetected) CSF Enterovirus (PCR) (NotDetected) CSF E. coli K1 (PCR) (NotDetected) CSF H. influenzae (PCR) (NotDetected) CSF HSV I (PCR) (NotDetected) CSF HSV II (PCR) (NotDetected) CSF HHV 6 (PCR) (NotDetected) CSF L.monocytogenes PCR (NotDetected) CSF N. meningitidis PCR (NotDetected) CSF Parechovirus (PCR) (NotDetected) CSF S. agalactiae (PCR) (NotDetected) CSF S. pneumoniae (PCR) (NotDetected) CSF VZV DNA (PCR) (NotDetected) CSF West Nile RNA Pending Lyme Specimen Source Coding Level of Care Code Critical Care 1st 30-74 mins Diagnoses Acute respiratory failure with hypoxia J96.01 Acute on chronic diastolic (congestive) heart failure I50.33 Encephalopathy G93.40 Time Spent (min) 37
--- NOTE | 2019-08-31 12:46 | Magnetic Resonance Report ---
MR brain wo con CLINICAL HISTORY: 79 years-old Male presenting with altered mental status, elevated protein CSF. TECHNIQUE: Multisequence, multiplanar MR imaging of the brain was performed without the use of intrav enous contrast. IV contrast: None. COMPARISON: Noncontrast CT head from 08/25/2019. FINDINGS: Localizer images: Unremarkable. Bone marrow signal intensity within the calvarium within normal limits. Normal midline sagittal structures. Proportional ventricular and sulcal prominence, likely age-relate d parenchymal volume loss. No mass effect or midline shift. No restricted diffusion or hemorrhage. Br ain parenchyma normal in appearance with preserved alexander-white differentiation. No extra-axial fluid collection. T2 skull base flow voids preserved. IMPRESSION: 1. No acute intracranial abnormality. ACT 112: Negative or not required by law. Results electronically sent 08/31/2019 12:45 PM to: Esequiel Cook DO Electronically signed by: Jace Montague M.D. 08/31/2019 12:45 PM
--- NOTE | 2019-08-31 14:38 | Hospitalist Progress Note ---
Date of Service August 31, 2019 Assessment & Plan (1) Acute respiratory failure with hypoxia: Patient was stable on room air on admission but then required O2 within a day or so. He then developed respiratory distress then resp. failure on 08/26 necessitating use of BIPAP, Lasix, steroids, nebs, etc. There was some suspicion at that time for allergic reaction, no epi was given. CXR negative except some bronchial thickening CTA Chest 08/27 neg for PE or PNA BNP significantly elevated and likely hypoxia due to CHF as below ABG with hypoxia but no hypercapnia - Diuresed on 08/26. -Diuretics then held on 08/27 for RJ. Given single dose of Lasix 40mg IV on 08/28 for further pulmonary edema. Discussed with RN, respiratory care. - Abx were vanc/Cefepime, then converted Cefepime to Zosyn, then changed to linezolid/Zosyn on 08/27 for RJ. - On 08/28, had worsening respiratory distress and was transferred to the ICU. Abx switched then to cover possible Listeria. Was then on Linezolid, ampicillin, and cefepime again. Now improving, meningitis ruled out, pneumonia suspected but not definite Remains on O2 via NC-wean off as tolerated -repeat CXR similar appearing today -Pulm has recommended de-escalation to doxycycline po only (2) Acute on chronic diastolic (congestive) heart failure: With resp failure and elevated BNP as above at 19k Received 80mg of IV Lasix on 08/26, then 40 mg IV later in the afternoon. - Held Lasix on 08/27 for RJ. - Given Lasix 40mg IV x 1 for pulmonary edema on 08/28 & 08/29. -continue to hold further diuretics for now and watch UOP -strict I/Os, daily weights, added low Na+ diet Weight is back to what it was on admission which seemed stable from previous (3) Encephalopathy: Uncertain etiology but leaning towards infectious process of lung causing metabolic encephalopathy vs hypertension as per Critical Care - U/a not suspicious for UTI, flu PCR negative, blood cx's cont to be negative, and abd/pelvic CT without true infectious cause (duodenitis not likely to cause this). - CT head negative for acute process. - TSH and B12 wnl. -LP 08/29 to test for meningitis shows elevated protein only, 0 WBCs, viral panel neg, Lyme and VDRL, West Nile pending MRI brain negative for acute Improving (4) Leukocytosis: Elevated on admission possibly due to PNA, however also had a leukocytosis last admission after his cardiac cath Was at 20k on admission with neutrophil predominate diff Possible PNA as above, PCT mildly elevated Cath groin site assessed by Cardio here and no evidence of infection Also received one dose of IV SOlu Medrol early AM on 08/28 which is now contributing to WBC count remaining mildly high at 12k today -follow CBC -continues on doxy only now for PNA as above (5) Duodenitis: As seen on CT at admission. No symptoms from such are clear although ER reports he c/o abdominal pain in ER Lipase normal -pancreas with uncinate process inflammation on CT - Cont PPI which was started this admission -has been on ASA for years for severe CAD -with hgb dropping as well slightly to 10, however macrocytic and not reflective likely of Fe-def anemia -consult GI to see if needs EGD (6) Cellulitis of right lower extremity without foot: This was noted as an issue on the prior presentation as well; however, I believe these are chronic findings. They have not changed on multiple examinations. - Monitor (7) BPH (benign prostatic hyperplasia): No LUTS complaints although has had a Lau in place. - dc Lau today -restart home finasteride 5mg daily (8) Hypertension: BP remains high today but improved after increased meds as below--> this is in the context of agitation, confusion and also received one dose of IV SOlu Medrol on admission. Improved from previous when had highs as high as 200. - holding home lisinopril for RJ -restart home amlodipine and increased to 10mg daily -increased his isosorbide to 60mg daily today -was started on po hydralazine 50 tid on 08/28 but with rash outbreak on back and other changes made to meds as above for BP, will dc hydralazine po and closely monitor BP - continue hydralazine IV PRN for SBP > 180 (9) Coronary artery disease: S/p CABG at hospital in [place] years ago. Triple-bypass. Just had heart cath by Dr. Alonso showing patent grafts x 3 during recent admission (1 week ago). - has been off his statin, plavix, ASA--> will restart today (10) Non-ST elevation MO (NSTEMI): During recent hospital stay with peak troponin of 10.2. No ischemic symptoms at this time. Heart cath showed patent grafts. - As above -not on beta jr for bradycardia (11) Nayeli second degree AV block: Some type 1, rare type 2 seen on telemetry hospital day #1 and also noted on previous admission Cardiology notes -follow on tele - Cardiology aware - Appreciate recs -holding beta jr (12) Rash: all over back and is pruritic; not previously documented and RN was not aware until today Could be allergy to antibiotics, hydralazine po? -dcd Cefepime, Ampicillin today -will dc hydralazine po -give Zyrtec 10mg daily, start topical HC cream Follow (13) Macrocytic anemia: Hgb trending downward but has had lengthy hospital stay, blood draws MCV elevated--> he reports wine drinking once per week tops, no known liver disease, B12 normal here but no Folate checked -check folate -follow CBC -consult GI for duodenitis as above and hgb drop -if folate negative, discussed Heme referral as an outpt with pt and sister at bedside (14) DVT prophylaxis: Heparin 5000 units Q12h Dispo-remain hospitalized, transferred out of ICU Admission and Anticipated Discharge Date Admission Date: August 25, 2019 Subjective Pt transferred out of ICU today and I received sign out from the ICU resident. He apparently is much improved with his mental status from previous, however he remains slightly confused for me today. He continues to perseverate on his discharge to [facility] and then after being told he's not ready for discharge yet, says "ok well you have all of the services here and then I'll make my way to [facility]." He asks "how did I get in this predicament?" Denies any headache or chest pain, no SOB and is on O2 via NC now. Denies nausea or abd pain. Says his appetite is low and he didn't eat much for lunch. He does however complain of itching on his back and was found to have a diffuse rash on his back only. Review of Systems Review of Systems: All systems reviewed & are unremarkable except as noted in HPI & below Physical Exam Constitutional: WD/WN, vitals as above Eyes: + anicteric sclerae Neck: trachea midline, no thyromegaly Respiratory: normal respiratory effort, lungs clear to auscultation Cardiovascular: Rate/Rhythm: regular rate and regular rhythm Heart Sounds: + murmur (2/6 RUSB ALYCIA) Extremities: no edema Chest (Breasts): Chest: normal inspection of chest Gastrointestinal (Abdomen): normal bowel sounds, soft, nontender, no hepatosplenomegaly Musculoskeletal: Extremities: extremities normal to inspection; no cyanosis and no clubbing Skin: + rash (erythematous maculopapular rash diffusely on back) Neurologic: moves all extremities and awake; no focal motor deficits Psychiatric: Orientation: alert and oriented to person Eye Contact: + fair eye contact Speech: normal rate/rhythm/volume of speech Affect: euthymic affect Thought Process: + perseveration Lymphatic: no lymphedema Results & Data ([facility]) Vital Signs (Past 12 Hours) Vital Signs Temp Pulse Pulse Resp BP BP Pulse Ox 08/31/19 14:19 61 18 93 08/31/19 13:58 132/64 08/31/19 11:29 36.2 C L 54 L 18 136/62 96 08/31/19 11:13 81 22 95 08/31/19 10:48 36.2 C L 67 20 148/64 H 93 08/31/19 10:00 60 08/31/19 07:36 59 L 22 99 08/31/19 06:00 54 L 28 H 142/59 H 97 08/31/19 05:29 55 L 28 H 135/58 L 95 08/31/19 04:59 36.8 C 50 L 20 145/49 H 95 08/31/19 04:29 57 L 29 H 140/52 L 95 08/31/19 03:59 52 L 24 118/46 L 94 08/31/19 03:30 70 19 143/52 H 95 08/31/19 02:59 57 L 27 H 135/46 L 96 Laboratory Results 08/31/19 08/31/19 Range/Units 04:27 04:27 WBC 12.06 H (4.8-10.8) K/uL RBC 3.41 L (4.7-6.1) M/uL Hgb 10.9 L (14.0-18.0) g/dL Hct 34.2 L (42-52) % MCV 100.3 H (80-100) fL MCH 32.0 (25-34) pg MCHC 31.9 L (32-36) g/dL RDW Std Deviation 53.5 H (36.4-46.3) fL RDW Coeff of Marisol 14.7 H (11.5-14.5) % Plt Count 317 (130-400) K/uL MPV 11.8 H (7.4-10.4) fL Immature Gran % (Auto) 1.2 % Neut % (Auto) 83.7 % Lymph % (Auto) 7.3 % Dixie % (Auto) 6.5 % Eos % (Auto) 1.1 % Baso % (Auto) 0.2 % Immature Gran # (Auto) 0.15 H (0.00-0.02) K/uL Neut # (Auto) 10.09 H (1.4-6.5) K/uL Lymph # (Auto) 0.88 L (1.2-3.4) K/uL Dixie # (Auto) 0.78 H (0.11-0.59) K/uL Eos # (Auto) 0.13 (0-0.5) K/uL Baso # (Auto) 0.03 (0-0.2) K/uL Absolute Nucleated RBC 0.02 H (0-0) K/uL Nucleated RBC % (auto) 0.2 % Sodium 143 (136-145) mmol/L Potassium 3.6 (3.5-5.1) mmol/L Chloride 109 H (98-107) mmol/L Carbon Dioxide 28 (21-32) mmol/L Anion Gap 6.0 (3-11) BUN 42 H (7-18) mg/dl Creatinine 1.93 H (0.6-1.4) mg/dl Est Cr Clr Drug Dosing 37.7 ml/min Est GFR ( Amer) 37.0 Est GFR (Non-Af Amer) 32.0 BUN/Creatinine Ratio 21.8 H (10-20) Glucose 134 H (70-99) mg/dl Calcium 8.4 L (8.5-10.1) mg/dl Phosphorus 4.4 D (2.5-4.9) mg/dl Magnesium 2.3 (1.8-2.4) mg/dl Total Bilirubin 0.4 (0.2-1) mg/dl AST 38 H (15-37) U/L ALT 78 (12-78) U/L Alkaline Phosphatase 63 (45-117) U/L Total Protein 6.8 (6.4-8.2) gm/dl Albumin 1.9 L (3.4-5.0) gm/dl Globulin 4.9 H (2.5-4.0) gm/dl Albumin/Globulin Ratio 0.4 L (0.9-2) PG Care Time/CCT Total # of Minutes Spent Total Time Spent with Patient: Total time spent is greater than 50% in coordination of care (as documented) at patient's floor/unit and/or counseling patient: Coding Level of Care Code 73303 Subseq Hosp Care Lvl 3 Diagnoses Acute respiratory failure with hypoxia J96.01 Acute on chronic diastolic (congestive) heart failure I50.33 Encephalopathy G93.40 Leukocytosis D72.829 Leukocytosis type: unspecified Duodenitis K29.80 Cellulitis of right lower extremity without foot L03.115 BPH (benign prostatic hyperplasia) N40.0 Hypertension I10 Hypertension type: essential hypertension Coronary artery disease I25.10 Non-ST elevation MO (NSTEMI) I21.4 Wenckebach second degree AV block I44.1 Rash R21 Macrocytic anemia D53.9 DVT prophylaxis Z29.9 (1) Leukocytosis Leukocytosis type: unspecified Qualified Code(s): D72.829 - Elevated white blood cell count, unspecified (2) Hypertension Hypertension type: essential hypertension Qualified Code(s): I10 - Essential (primary) hypertension
[2019-08-31] MEDS ORDERED: CETIRIZINE HCL 10 MG TABLET PO ONE (14:47)
--- NOTE | 2019-08-31 15:07 | XRay Report ---
XR chest 1V portable CLINICAL HISTORY: f/u COMPARISON STUDY: Chest CT August 27, 2019. Chest radiograph August 282019. FINDINGS: There are median sternotomy wires. Moderate cardiac megaly is noted. There are small bilate ral pleural effusions. Pulmonary edema has improved. IMPRESSION: 1. Improvement in pulmonary edema. 2. Small bilateral pleural effusions. ACT 112: Negative or not required by law. Results electronically sent 08/31/2019 3:06 PM to: Víctor Brooks MD Electronically signed by: Sky Olvera M.D. 08/31/2019 3:06 PM
[2019-08-31] MEDS: CLOPIDOGREL BISULFATE 75 MG TAB PO SCH (15:33)
[2019-08-31] MEDS: ATORVASTATIN 10 MG TAB PO SCH (15:33)
[2019-08-31] MEDS: HYDROCORTISONE 1% CRM 30 GM TUBE EXT SCH ×2 (15:33→20:07)
[2019-08-31] MEDS: ASPIRIN 81 MG ECTAB PO SCH (15:34)
[2019-09-01] MEDS: ALBUT/IPRATROP 3MG/0.5MG NEB 3 ML VIAL NEB SCH ×3 (03:32→11:15)
[2019-09-01 06:23] LABS: Basophils # (auto) 0.02 K/uL (0-0.2); Basophils % (auto) 0.2 %; Eosinophils % (auto) 1.7 %; Hematocrit (blood only) 34.9 % (42-52); Hemoglobin 11.2 g/dL (14.0-18.0); Immature Granulocytes # (auto) 0.11 K/uL (0.00-0.02); Immature Granulocytes % (auto) 0.9 %; Lymphocytes # (auto) 0.73 K/uL (1.2-3.4); Lymphocytes % (auto) 6.1 %; Mean Corpuscular Hemoglobin 31.8 pg (25-34); Mean Corpuscular Hgb Conc 32.1 g/dL (32-36); Mean Corpuscular Volume 99.1 fL (80-100); Mean Platelet Volume 11.9 fL (7.4-10.4); Monocytes # (auto) 0.81 K/uL (0.11-0.59); Monocytes % (auto) 6.8 %; Neutrophils # (auto) 10.01 K/uL (1.4-6.5); Neutrophils % (auto) 84.3 %; Platelet Count 239 K/uL (130-400); RDW Standard Deviation 53.4 fL (36.4-46.3); Red Blood Count 3.52 M/uL (4.7-6.1); White Blood Count 11.88 K/uL (4.8-10.8)
[2019-09-01 06:54] LABS: BUN Creatinine Ratio 25.4 (10-20); C Reactive Protein 7.61 mg/dl (0-0.29); Calcium 8.5 mg/dl (8.5-10.1); Creatinine Clr Calc Pharmacy 41.8 ml/min; Est GFR (Non-African American) 36.2; Magnesium 2.5 mg/dl (1.8-2.4); Potassium 3.5 mmol/L (3.5-5.1)
[2019-09-01 07:05] LABS: Bilirubin Direct 0.1 mg/dl (0-0.2); Bilirubin,Total 0.4 mg/dl (0.2-1); Phosphorus 3.9 mg/dl (2.5-4.9); Total Protein 6.8 gm/dl (6.4-8.2)
[2019-09-01] MEDS: BUDESONIDE 0.5 MG/2 ML VIAL (PULMICORT) NEB SCH (07:24)
[2019-09-01] MEDS: CLOPIDOGREL BISULFATE 75 MG TAB PO SCH (08:33)
[2019-09-01] MEDS: AMLODIPINE BESYLATE 5 MG TAB PO SCH (08:33)
[2019-09-01] MEDS: ASPIRIN 81 MG ECTAB PO SCH (08:33)
[2019-09-01] MEDS: PANTOprazole 40 MG TAB PO SCH (08:33)
[2019-09-01] MEDS: ISOSORBIDE MONO EXTENDED REL 60 MG TABCR PO SCH (08:33)
[2019-09-01] MEDS: DOXYCYCLINE HYCLATE 100 MG CAP PO SCH ×2 (08:33→21:18)
[2019-09-01] MEDS: ATORVASTATIN 10 MG TAB PO SCH (08:34)
[2019-09-01] MEDS: HEPARIN SOD 5,000 UNIT/0.5 ML VIAL SQ SCH ×2 (08:34→21:19)
[2019-09-01] MEDS: HYDROCORTISONE 1% CRM 30 GM TUBE EXT SCH ×2 (08:34→21:19)
[2019-09-01] MEDS: FINASTERIDE 5 MG TAB PO SCH (08:35)
--- NOTE | 2019-09-01 09:05 | Communication Note ---
Date of Service: September 01, 2019 I have seen and examined the patient with MIGUEL Moreno whose note reflects our findings and plan. Please see full consult note.
--- NOTE | 2019-09-01 09:10 | Gastrointestinal Consultation ---
Date of Consultation September 01, 2019 Assessment & Plan (1) Macrocytic anemia: He is experienced a 1 point drop in his hemoglobin which is expected with hydration and hospitalized patients he does not have any gross GI bleeding. Apparently, he has intermittently c/o some abdominal pain but on my exam and questioning day today he is nontender and denies any pain. Anemia is likely multifactorial including anemia of chronic disease. The duodenitis may be causing a very minimal slow GI bleed, doubt that it is significantly contributing to his anemia. Present on Admission?: Yes (2) Duodenitis: CT with duodenitis also apparently some intermittent complaints of abdominal discomfort. With his recent NSTEMI, and his moderate aortic regurg, he is moderately high risk for sedation. Discussed pros and cons of going forward with EGD with Sister Beverly as well as the patient. At this point we recommend treating for duodenitis with twice daily PPI which would also be the appropriate treatment for ulcer if present. Would defer endoscopy at this time due to associated risks but would reconsider if any gross GI bleeding or significant drop in hemoglobin hematocrit. Recommend considering outpatient EGD after white count is stabilized and cardiopulmonary status is optimized. Would defer to outpatient PCP. Present on Admission?: Yes History of Present Illness Reason for Consultation: duodenitis, anemia Requesting Physician: Dr. Taylor Attending Physician: Shayne Hernandez MD History of Present Illness Mr. Michael Voss is an 79 yr old male pt of Dr. Shea with a hx of CAD, hypertension, hyperlipidemia, CABG, stent placement 3 to 4 years ago, and BPH, and recent NSTEMI on 08/18/19 here at [facility]. He is a resident of [facility]. He was brought to [facility] on 08/25/19 for leukocytosis and confusion. GI is consulted for abnormal CT with duodenal wall thickening, and anemia (Hb 12 on arrival, 11.2 today). The patient has some confusion though he does seem alert and oriented this morning, some answers to questions are quite tangential. Information is gathered from him as well as his Sister Beverly who is at the bedside with her . Beverly states that the patient has been complaining of abdominal pain, however the patient denies this when asked more than once during my exam and he was nontender during the exam. Patient and his sister deny that there have have been any episodes of nausea or vomiting or any gross GI bleeding. He seems to be tolerating a regular consistency diet well. Of note his Sister Beverly is an RN. There does not seem to be any history of prior endoscopy or ongoing GI issues according to the patient and the sister. He recently moved to this area. He is a [employer] grad. 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 I reviewed the outpatient [facility] note system and he has not previously sought care from [facility] provider. Allergies Allergy/AdvReac Type Severity Reaction Status Date / Time No Known Allergies Allergy Unverified 08/25/19 17:47 Home Medications Home Medications Medication Instructions Recorded Confirmed Type aspirin 81 mg PO DAILY 08/18/19 08/25/19 History cholecalciferol (vitamin D3) 1,000 unit PO DAILY 08/18/19 08/25/19 History [Vitamin D3] amlodipine [Norvasc] 5 mg PO QAM #30 tab 08/21/19 08/25/19 Rx atorvastatin [Lipitor] 10 mg PO HS 08/25/19 08/25/19 History calcium carbonate [Calcium 500] 500 mg PO DAILY 08/25/19 08/25/19 History clopidogrel [Plavix] 75 mg PO QAM 08/25/19 08/25/19 History coenzyme Q10 [CoQ-10] 100 mg PO DAILY 08/25/19 08/25/19 History finasteride [Proscar] 5 mg PO DAILY 08/25/19 08/25/19 History lisinopril [Zestril] 2.5 mg PO HS 08/25/19 08/25/19 History Patient History Medical History (Updated 08/31/19 @ 15:03 by Liset Taylor MD) Aortic aneurysm BPH (benign prostatic hyperplasia) Costochondritis Grade II diastolic dysfunction Hypertension Macrocytic anemia Mild mitral regurgitation Moderate aortic regurgitation Non-ST elevation CT (NSTEMI) on 08/18/2019 Stage 3a chronic kidney disease Surgical History H/O cardiac catheterization on 08/21/2019 Family History Other No pertinent family history in first degree relatives Social History Preferred Language: Icelandic Communication Ability: Effective Strategic Analyst Required: No Beliefs That Will Affect Care: None marital status: Single Current Living Situation: Long Term Feels Safe at Home: Yes Smoking Status: Never smoker Hx Alcohol Use: No Hx Substance Use: No Review of Systems Review of Systems: ROS: Gen: + weakness, no fevers Eyes: No eye redness, or pain, no recent vision changes Resp: + some mild SOB, no cough Cardio: No palpitations/irregular beats, no chest pain GI: Denies abdominal pain, no nausea/vomiting : Denies pain on urination Skin: No jaundice, itching or new rashes Physical Exam Constitutional: WD/WN, vitals as above + obese Eyes: PERRL, conjunctivae normal, anicteric sclerae ENMT: external ear and nose normal, oropharynx normal Neck: trachea midline, no thyromegaly Respiratory: normal respiratory effort Auscultation: + wheezes (few scattered wheezes); no crackles Cardiovascular: Rate/Rhythm: regular rhythm and + bradycardic Vessels: no JVD Extremities: + edema mild bilat lower leg edema Gastrointestinal (Abdomen): Inspection/Auscultation: abdomen not distended Percussion/Palpation: abdomen soft; abdomen nontender BS present but a bit hypoactiv Skin: no rashes, warm and dry Neurologic: PERRL, EOMI, accommodation nl, no face palsy, no dysarthria Psychiatric: Orientation: alert and oriented x 3 Judgement: good judgement (questionable) Lymphatic: no cervical or axillary lymphadenopathy Results & Data ([facility]) Vital Signs (Past 12 Hours) Vital Signs Temp Pulse Pulse Resp BP Pulse Ox 09/01/19 07:47 36.6 C 50 L 20 133/58 L 96 09/01/19 07:24 52 L 20 96 09/01/19 04:00 36.5 C 61 20 148/65 H 96 09/01/19 03:32 59 L 20 93 09/01/19 00:00 56 L 08/31/19 23:00 36.3 C L 55 L 22 124/55 L 93 08/31/19 22:18 84 22 93 Laboratory Results WBC 20 on admission-> 11.8 today, Hb 12.8 on arrival to 11.2. He has not received any blood products. Platelets 238, NA 141, K3.5, BUN 44, CR 1.74, glucose [address] with IV, no oral 08/25/19 1. Mild thickening of the second and third portion of the duodenum with mild surrounding inflammatory change. The inflammatory change also surrounds the uncinate process of the pancreas. Therefore, this could represent a duodenitis/peptic ulcer disease or an acute pancreatitis. Endoscopy and/or pancreatic enzymes should be performed for further evaluation. 2. Trace left pleural effusion. 3. Moderate size right inguinal hernia containing fat in the anterior bladder. 4. Additional findings as described above.
--- NOTE | 2019-09-01 09:42 | Nephrology Progress Note ---
Date of Service September 01, 2019 Assessment & Plan (1) Acute kidney injury: Mr. Voss admitted to the hospital with change in mental status in the setting of sepsis of unclear source. 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 Developed acute kidney injury in the setting of repeated IV contrast exposure with CT abdomen pelvis with contrast as well as CTA chest for PE evaluation. AIN with vancomycin is possible but seems less likely. Has been having decent urine output, in fact has been net negative. Renal function has been relatively stable and slightly improved today, electrolyte, blood pressure, volume status acceptable. UO decent, expect renal function to slowly start to improve. --monitor intake and output, keep close to net even, do not see any need for diuretics at this time however if urine output drops, okay to use diuretics as needed --monitor renal function daily renal panel --OK to be discharged when clinically stable, please make sure pt has f/u lab after DC and follow with PCP. Will sign off, please contact if further assistance needed. Thank you for the consult. (2) Hypertension: (3) Proteinuria: (4) Microscopic hematuria: (5) Stage 3a chronic kidney disease: (6) Grade II diastolic dysfunction: Subjective Mr. Voss was seen and examined this am with his family at bedside. Denies any symptoms but still seems to have some confusion. BP fair, UO decent. Renal function stable, electrolytes acceptable. Review of Systems Review of Systems: All systems reviewed & are unremarkable except as noted in HPI & below Physical Exam Constitutional: + obese; no acute distress Respiratory: no respiratory distress Auscultation: + rales Cardiovascular: RRR, no murmur, no edema Skin: no rashes, warm and dry Neurologic: moves all extremities and awake Psychiatric: A+Ox3, euthymic affect Results & Data Vital Signs (Past 12 Hours) Vital Signs Temp Pulse Pulse Resp BP Pulse Ox 09/01/19 09:37 52 L 09/01/19 07:47 36.6 C 50 L 20 133/58 L 96 09/01/19 07:24 52 L 20 96 09/01/19 04:00 36.5 C 61 20 148/65 H 96 09/01/19 03:32 59 L 20 93 09/01/19 00:00 56 L 08/31/19 23:00 36.3 C L 55 L 22 124/55 L 93 08/31/19 22:18 84 22 93 PG Care Time/CCT Total # of Minutes Spent Total Time Spent with Patient: Total time spent is greater than 50% in coordination of care (as documented) at patient's floor/unit and/or counseling patient: Coding Level of Care Code 89425 Subseq Hosp Care Lvl 2 Diagnoses Acute kidney injury N17.9 Hypertension I10 Hypertension type: essential hypertension Proteinuria R80.9 Microscopic hematuria R31.29 Stage 3a chronic kidney disease N18.3 Grade II diastolic dysfunction I51.9 (1) Hypertension Hypertension type: essential hypertension Qualified Code(s): I10 - Essential (primary) hypertension
--- NOTE | 2019-09-01 14:11 | Hospitalist Progress Note ---
Date of Service September 01, 2019 Assessment & Plan (1) Acute respiratory failure with hypoxia: Patient was stable in room air all day yesterday. Developed respiratory distress then resp. failure overnight necessitating use of BIPAP, Lasix, steroids, nebs, etc. - Diuresed on 08/26. - Held on 08/27 for RJ. Given single dose of Lasix 40mg IV on 08/28 for further pulmonary edema. Discussed with RN, respiratory care. - Abx were vanc/Zosyn initially, changed to linezolid/Zosyn on 08/27 for RJ. - On 08/28, had worsening respiratory distress and was transferred to the ICU. Abx switched then to cover possible Listeria. Was on Linezolid, ampicillin, and cefepime; however, with his improvement, he was de-escalated to doxycycline only. - Continue doxycycline at least until Lyme PCR is back. (2) Acute on chronic diastolic (congestive) heart failure: Received 80mg of IV Lasix on 08/26, then 40 mg IV later in the afternoon. - Given Lasix 40mg IV x 1 for pulmonary edema on 08/28 & 08/29. - Will start Lasix 40mg PO daily and monitor weights/I&Os. (3) Encephalopathy: Uncertain etiology but leaning towards infectious process of lung causing metabolic encephalopathy. - U/a not suspicious for UTI, flu PCR negative, blood cx's cont to be negative, and abd/pelvic CT without true infectious cause. - CT head negative for acute process. - TSH and B12 wnl. - LP on 08/29 with mildly high protein and otherwise normal. Lyme, West Nile, and VDRL all pending. (4) Leukocytosis: See above in "encephalopathy." Improving today. - Continue abx (5) Duodenitis: As seen on CT at admission. No symptoms from such. Lipase normal and pancreas normal on CT making pancreatitis causing duodenal irritation unlikely. - Cont PPI - GI recommend outpatient EGD once optimized. (6) Cellulitis of right lower extremity without foot: This was noted as an issue on the prior presentation as well; however, I believe these are chronic findings. They have not changed on multiple examinations. - Monitor (7) BPH (benign prostatic hyperplasia): No LUTS complaints. - Cont usual meds from home (8) Hypertension: BP high today at 155/70, but in the context of agitation, confusion. Improved from priors with highs as high as 200. - Cont usual meds - Added hydralazine PRN for SBP > 180 given the concern for pulmonary edema. (9) Coronary artery disease: S/p CABG at hospital in [place] years ago. Triple-bypass. Just had heart cath by Dr. Alonso showing patent grafts x 3 during recent admission (1 week ago). - Cont statin, Plavix, ASA, Imdur (10) Non-ST elevation DE (NSTEMI): During recent hospital stay with peak troponin of 10.2. No ischemic symptoms at this time. Heart cath showed patent grafts. - As above (11) Nayeli second degree AV block: Some type 1, rare type 2 seen on telemetry hospital day #1. - Cardiology aware - Appreciate recs (12) DVT prophylaxis: Heparin 5000 units Q12h Admission and Anticipated Discharge Date Admission Date: August 25, 2019 Subjective Feeling better today. Still feeling like he does not understand why he is here and all the testing that occurred. Reports no fevers/chills, chest pain, shortness of breath, abdominal pain, nausea, or vomiting. Physical Exam Constitutional: WD/WN, vitals as above cooperative Eyes: EOM intact bilaterally; no conjunctival abnormality ENMT: external ear and nose normal, oropharynx normal Neck: trachea midline, no thyromegaly normal visual inspection Respiratory: normal respiratory effort, lungs clear to auscultation + respiratory distress and + labored breathing Auscultation: + diminished lung sounds, + crackles and + rhonchi Cardiovascular: RRR, no murmur, no edema Gastrointestinal (Abdomen): Inspection/Auscultation: abdomen normal to inspection; abdomen not distended Musculoskeletal: no cyanosis or clubbing, extremities motor strength 5/5 Skin: no rashes, warm and dry Neurologic: moves all extremities and awake Psychiatric: Orientation: alert, oriented to person and cooperative Results & Data ([facility]) Vital Signs (Past 12 Hours) Vital Signs Temp Pulse Pulse Pulse Resp BP Pulse Ox 09/01/19 12:11 36.5 C 64 20 154/68 H 97 09/01/19 11:16 58 L 18 93 09/01/19 09:37 52 L 09/01/19 07:47 36.6 C 50 L 20 133/58 L 96 09/01/19 07:24 52 L 20 96 09/01/19 04:00 36.5 C 61 20 148/65 H 96 09/01/19 03:32 59 L 20 93 PG Care Time/CCT Total # of Minutes Spent Total Time Spent with Patient: Total time spent is greater than 50% in coordination of care (as documented) at patient's floor/unit and/or counseling patient: Coding Level of Care Code 95080 Subseq Hosp Care Lvl 3 Diagnoses Acute respiratory failure with hypoxia J96.01 Acute on chronic diastolic (congestive) heart failure I50.33 Encephalopathy G93.40 Leukocytosis D72.829 Leukocytosis type: unspecified Duodenitis K29.80 Cellulitis of right lower extremity without foot L03.115 BPH (benign prostatic hyperplasia) N40.0 Hypertension I10 Hypertension type: essential hypertension Coronary artery disease I25.10 Non-ST elevation DE (NSTEMI) I21.4 Wenckebach second degree AV block I44.1 DVT prophylaxis Z29.9 (1) Leukocytosis Leukocytosis type: unspecified Qualified Code(s): D72.829 - Elevated white blood cell count, unspecified (2) Hypertension Hypertension type: essential hypertension Qualified Code(s): I10 - Essential (primary) hypertension
--- NOTE | 2019-09-01 15:54 | Electrocardiogram Report ---
Test Reason : Blood Pressure : / mmHG Vent. Rate : 060 BPM Atrial Rate : 060 BPM P-R Int : 162 ms QRS Dur : 110 ms QT Int : 524 ms P-R-T Axes : 083 004 063 degrees QTc Int : 524 ms Sinus rhythm with Premature atrial complexes in a pattern of bigeminy Incomplete right bundle branch block Nonspecific ST abnormality Prolonged QT Abnormal ECG When compared with ECG of 26-AUG-2019 03:18, Significant changes have occurred Confirmed by Sergio Alonzo ([id number]) on 09/01/2019 3:54:11 PM Referred By: REFERRED SELF Confirmed By:Sergio Alonzo
[2019-09-01] MEDS: FUROSEMIDE 20 MG TAB PO SCH (16:35)
--- NOTE | 2019-09-01 16:57 | Cardiology Progress Note ---
Date of Service September 01, 2019 Assessment & Plan (1) Wenckebach second degree AV block: Some AV burton disease and Wenckebach at times. No symptoms. I would avoid beta-blockers otherwise no intervention. (2) Non-ST elevation [place] (NSTEMI): NO evidence of ACS (3) Moderate aortic regurgitation: Preserved LV systolic function and chamber dimension we will follow this regurgitation over time. (4) Coronary artery disease: Recent NSTEMI. Will continue on dual antiplatelet therapy and atorvastatin. No beta-jr due to his conduction disease. (5) Leukocytosis: Unclear etiology. PLanning LP (6) Acute on chronic diastolic (congestive) heart failure: He appears well compensated. Lung exam improving. We will continue on his daily dose of Lasix. I will be away from the hospital for the next 2 days. If there are some questions regarding his care please contact the on-call [facility] [place] [facility]. Admission and Anticipated Discharge Date Admission Date: August 25, 2019 Subjective This afternoon the patient came to be feeling well. He was somewhat frustrated regarding the lack of an answer for his admission or continued hospital stay. He denied pain. He denied breathing trouble. He claims of been ambulatory earlier in the day. No significant abdominal pain but poor appetite. Review of Systems Review of Systems: Per HPI Physical Exam Physical Exam: The patient is alert and oriented. Mood and affect appeared normal. He answered all questions appropriately. He repeated himself on occasion. HEENT: Pupils are equal and reactive to light and accommodation. Extraocular movements are intact. The sclerae are anicteric. Neuro: Cranial nerves intact Lungs: Occasional rale. No wheezing. Normal respiratory effort. Cardiac: Heart demonstrates a regular rate and rhythm. Normal S1 and S2. Crescendo systolic murmur Pulses: The patient has palpable radial pulses bilaterally that are equal in intensity Extremities: There was no evidence of hypoperfusion. There is no cyanosis or clubbing. Trace lower extremity edema. Skin: I did not appreciate any rashes on examination today. Results & Data ([facility]) Vital Signs (Past 12 Hours) Vital Signs Temp Pulse Pulse Pulse Resp BP BP 09/01/19 16:48 61 18 153/63 H 09/01/19 15:00 36.3 C L 59 L 20 138/52 L 09/01/19 12:11 36.5 C 64 20 154/68 H 09/01/19 11:16 58 L 18 09/01/19 09:37 52 L 09/01/19 07:47 36.6 C 50 L 20 133/58 L 09/01/19 07:24 52 L 20 Pulse Ox 09/01/19 16:48 95 09/01/19 15:00 98 09/01/19 12:11 97 09/01/19 11:16 93 09/01/19 09:37 09/01/19 07:47 96 09/01/19 07:24 96 Laboratory Results Abnormal Lab Results 09/01/19 09/01/19 09/01/19 05:43 05:43 05:43 WBC 11.88 H RBC 3.52 L Hgb 11.2 L Hct 34.9 L MCV 99.1 MCH 31.8 MCHC 32.1 RDW Std Deviation 53.4 H RDW Coeff of Marisol 15.0 H Plt Count 239 MPV 11.9 H Immature Gran % (Auto) 0.9 Neut % (Auto) 84.3 Lymph % (Auto) 6.1 Dixon % (Auto) 6.8 Eos % (Auto) 1.7 Baso % (Auto) 0.2 Immature Gran # (Auto) 0.11 H Neut # (Auto) 10.01 H Lymph # (Auto) 0.73 L Dixon # (Auto) 0.81 H Eos # (Auto) 0.20 Baso # (Auto) 0.02 ESR > 90 H Sodium 141 Potassium 3.5 Chloride 109 H Carbon Dioxide 26 Anion Gap 6.0 BUN 44 H Creatinine 1.74 H Est Cr Clr Drug Dosing 41.8 Est GFR ( Amer) 42.0 Est GFR (Non-Af Amer) 36.2 BUN/Creatinine Ratio 25.4 H Glucose 130 H Calcium 8.5 Phosphorus 3.9 Magnesium 2.5 H Total Bilirubin 0.4 Direct Bilirubin 0.1 AST 25 ALT 60 Alkaline Phosphatase 59 C-Reactive Protein 7.61 H Total Protein 6.8 Albumin 2.0 L Folate 09/01/19 05:43 WBC RBC Hgb Hct MCV MCH MCHC RDW Std Deviation RDW Coeff of Marisol Plt Count MPV Immature Gran % (Auto) Neut % (Auto) Lymph % (Auto) Dixon % (Auto) Eos % (Auto) Baso % (Auto) Immature Gran # (Auto) Neut # (Auto) Lymph # (Auto) Dixon # (Auto) Eos # (Auto) Baso # (Auto) ESR Sodium Potassium Chloride Carbon Dioxide Anion Gap BUN Creatinine Est Cr Clr Drug Dosing Est GFR ( Amer) Est GFR (Non-Af Amer) BUN/Creatinine Ratio Glucose Calcium Phosphorus Magnesium Total Bilirubin Direct Bilirubin AST ALT Alkaline Phosphatase C-Reactive Protein Total Protein Albumin Folate 17.21 PG Care Time/CCT Total # of Minutes Spent Total Time Spent with Patient: Total time spent is greater than 50% in coordination of care (as documented) at patient's floor/unit and/or counseling patient: Coding Level of Care Code 26870 Subseq Hosp Care Lvl 2 Diagnoses Wenckebach second degree AV block I44.1 Non-ST elevation [place] (NSTEMI) I21.4 Moderate aortic regurgitation I35.1 Coronary artery disease I25.10 Leukocytosis D72.829 Leukocytosis type: unspecified Acute on chronic diastolic (congestive) heart failure I50.33 (1) Leukocytosis Leukocytosis type: unspecified Qualified Code(s): D72.829 - Elevated white blood cell count, unspecified
[2019-09-02 06:47] LABS: Hematocrit (blood only) 32.9 % (42-52); Hemoglobin 10.5 g/dL (14.0-18.0); Mean Corpuscular Hemoglobin 31.9 pg (25-34); Mean Corpuscular Hgb Conc 31.9 g/dL (32-36); Mean Platelet Volume 10.8 fL (7.4-10.4); Platelet Count 304 K/uL (130-400); RDW Coefficient of Variation 14.7 % (11.5-14.5); RDW Standard Deviation 53.6 fL (36.4-46.3); Red Blood Count 3.29 M/uL (4.7-6.1); White Blood Count 12.05 K/uL (4.8-10.8)
[2019-09-02 07:27] LABS: BUN Creatinine Ratio 28.6 (10-20); Calcium 8.9 mg/dl (8.5-10.1); Creatinine Clr Calc Pharmacy 45.8 ml/min; Est GFR (African American) 48.7; Potassium 3.7 mmol/L (3.5-5.1)
[2019-09-02] MEDS: PANTOprazole 40 MG TAB PO SCH (08:56)
[2019-09-02] MEDS: DOXYCYCLINE HYCLATE 100 MG CAP PO SCH (08:56)
[2019-09-02] MEDS: CLOPIDOGREL BISULFATE 75 MG TAB PO SCH (08:56)
[2019-09-02] MEDS: ASPIRIN 81 MG ECTAB PO SCH (08:56)
[2019-09-02] MEDS: ISOSORBIDE MONO EXTENDED REL 60 MG TABCR PO SCH (08:56)
[2019-09-02] MEDS: ATORVASTATIN 10 MG TAB PO SCH (08:56)
[2019-09-02] MEDS: FINASTERIDE 5 MG TAB PO SCH (08:57)
[2019-09-02] MEDS: AMLODIPINE BESYLATE 5 MG TAB PO SCH (08:57)
[2019-09-02] MEDS: FUROSEMIDE 20 MG TAB PO SCH (08:57)
[2019-09-02] MEDS: HYDROCORTISONE 1% CRM 30 GM TUBE EXT SCH (08:58)
[2019-09-02] MEDS: HEPARIN SOD 5,000 UNIT/0.5 ML VIAL SQ SCH (08:58)
--- NOTE | 2019-09-02 15:37 | Discharge Summary ---
Date of Service September 02, 2019 Admission HPI Per Admitting Provider on 08/21/2019The patient is AN 79-year-old male with a past medical history including CAD, hypertension, hyperlipidemia, CABG, stent placement 3 to 4 years ago, and BPH. He was most recently admitted to [facility] from 08/18- 08/21/2019 with an elevated troponin and reversible ischemic changes in inferior leads. He underwent cardiac catheterization via right femoral access, was found to have severe [place] coronary disease, patent grafts, no obvious acute lesions and LVEDP mildly elevated. He was discharged on aspirin and Plavix at that time, with plan to follow-up in the outpatient setting. He did have labora tories performed earlier in the day as an outpatient, and was found to have elevated white blood cell count, which had progressed from previous hospitalization, and he was sent to the ED for further assessment. The patient, while in ED, was noted to have alteration in mental status, appearing quite confused and disoriented, which was completely different from his cognitive status when I had admitted him on 08/18. He did report some vague abdominal discomfort, and underwent CT of abdomen pelvis suggestive of duodenitis versus peptic ulcer disease versus pancreatitis. The patient was also noted to have a chronic right lower extremity dermatitis, which appeared to be developing more erythema during his emergency department stay. The patient was started on vancomycin IV and cefepime IV while in the ED, with plans for admission for further diagnosis and treatment. Principal Diagnosis Volume overload Confusion felt to be infectious delirium from possible pneumonia Discharge Exam Constitutional WD/WN, vitals as above cooperative Eyes EOM intact bilaterally; no conjunctival abnormality ENMT external ear and nose normal, oropharynx normal Neck trachea midline, no thyromegaly normal visual inspection Respiratory normal respiratory effort, lungs clear to auscultation + respiratory distress and + labored breathing Auscultation: + diminished lung sounds, + crackles and + rhonchi Cardiovascular RRR, no murmur, no edema Gastrointestinal (Abdomen) Inspection/Auscultation: abdomen normal to inspection; abdomen not distended Musculoskeletal no cyanosis or clubbing, extremities motor strength 5/5 Skin no rashes, warm and dry Neurologic moves all extremities and awake Psychiatric Orientation: alert, oriented to person and cooperative Discharge Data Allergies Allergy/AdvReac Type Severity Reaction Status Date / Time No Known Allergies Allergy Unverified 02/28/20 17:47 Consultations 08/25/19 21:42 ED Decision to Admit Stat 08/26/19 01:31 Consult Case Management - Discharge Planning Routine 08/26/19 03:31 Consult Cardiology Routine 08/29/19 20:12 Consult Wood Barrel Reconditioner Routine 08/30/19 08:12 Consult Nephrology Routine 08/31/19 15:00 Consult Gastroenterology Routine Ordered Studies 08/25/19 21:02 CT abd pelvis IV con only Stat 08/25/19 22:34 CT head/brain wo con Stat 08/27/19 04:12 CT angio chest PE protocol Urgent 08/31/19 08:36 MR brain wo con Urgent Hospital Course (1) Acute respiratory failure with hypoxia: Patient was stable in room air initially. Developed respiratory distress then resp. failure overnight necessitating use of BIPAP, Lasix, steroids, nebs, etc. - Held on 08/27 for RJ. Given single dose of Lasix 40mg IV on 08/28 for fur ther pulmonary edema. Discussed with RN, respiratory care. - Abx were vanc/Zosyn initially, changed to linezolid/Zosyn on 08/27 for RJ. - On 08/28, had worsening respiratory distress and was transferred to the ICU. Abx switched then to cover possible Listeria. Was on Linezolid, ampicillin, and cefepime; however, with his improvement, he was de-escalated to doxycycline only. - Continue doxycycline at least until CSF Lyme PCR is back. (2) Acute on chronic diastolic (congestive) heart failure: Received 80mg of IV Lasix on 08/26, then 40 mg IV later in the afternoon. - Given Lasix 40mg IV x 1 for pulmonary edema on 08/28 & 08/29. - On discharge, Lasix 20mg PO daily and monitor weights/I&Os. On discharge, weight was 112.5 kg. This is likely his baseline. If his weight goes up higher, would need to titrate his Lasix. (3) Encephalopathy: Uncertain etiology but leaning towards infectious process of lung causing metabolic encephalopathy. - U/a not suspicious for UTI, flu PCR negative, blood cx's cont to be negative, and abd/pelvic CT without true infectious cause. - CT head negative for acute process. - TSH and B12 wnl. - LP on 08/29 with mildly high protein and otherwise normal. Lyme, West Nile, and VDRL all pending. Follow up in 2-3 days. Continue doxycycline until results are back. (4) Leukocytosis: See above in "encephalopathy." Improving today. - Continue abx (5) Duodenitis: As seen on CT at admission. No symptoms from such. Lipase normal and pancreas normal on CT making pancreatitis causing duodenal irritation unlikely. - Cont PPI - GI recommend outpatient EGD once optimized. (6) Cellulitis of right lower extremity without foot: This was noted as an issue on the prior presentation as well; however, I believe these are chronic findings. They have not changed on multiple examinations. - Monitor (7) BPH (benign prostatic hyperplasia): No LUTS complaints. - Cont usual meds from home (8) Hypertension: BP high today at 155/70, but in the context of agitation, confusion. Improved from priors with highs as high as 200. - Cont usual meds - Added Imdur on discharge. Increased amlodipine as well. (9) Coronary artery disease: S/p CABG at hospital in [place] years ago. Triple-bypass. Just had heart cath by Dr. Alonso showing patent grafts x 3 during recent admission (1 week ago). - Cont statin, Plavix, ASA, Imdur (10) Non-ST elevation AL (NSTEMI): During recent hospital stay with peak troponin of 10.2. No ischemic symptoms at this time. Heart cath showed patent grafts. - As above (11) Nayeli second degree AV block: Some type 1, rare type 2 seen on telemetry hospital day #1. - Cardiology aware - Appreciate recs (12) DVT prophylaxis: Heparin 5000 units Q12h Total Time Total Time Spent Total Time Spent (In Minutes): 35 Discharge Plan Discharge Items Patient Disposition: Transfer [facility] Reason For Visit: ENCEPHALOPATHY, DUODENITIS, RLE CELLULITIS Discharge Diagnosis: Confusion, CHF exacerbation, possible pneumonia Activity: Resume your previous activity Non-emergency contact: Primary Care Provider and Letter Stamping Machine Operator Call non-emergency contact if: your symptoms worsen and your temperature is above 101 Follow-up/Referrals: Orlando Alonso MD [Physician] - (Please see Dr. Alonso in 1-2 weeks for cardiac follow up.) Hayden Arnett [Primary Care Provider] - Saleem Meyers [Physician] - (Follow up in 2-3 weeks for small intestine issue.) Diet: Heart Healthy and Low Sodium (2gm) Addtl Attending Provider Instructions: Mr. Voss was admitted to the hospital with confusion and trouble breathing. He was found to have a mild inflammation of his duodenum, but he had few symptoms other than some mild abdominal pain that resolved. He was seen by GI who recommend outpatient follow up with a possible EGD in the future. We are discharging him on a acid-jr to help relieve any irritation. He was found to have a significant amount of pulmonary edema, and he required IV Lasix while in the hospital. His weight on discharge was 112.5 kg which seems to be his dry weight and is stable from his prior admission. He will be discharged on Lasix 20 mg PO daily. He should have a good, standing weight every day and this should be tracked to prevent any further fluid retention. He should have a BMP checked in 3-4 days to ensure his Cr is staying stable. On discharge, it was 1.5 and going down. His baseline seems to be ~1.3 - 1.4, so he is essentially at his baseline. He was also started on Imdur for continued high blood pressure. He had quite a bit of confusion during this admission. It was thought to be due to infection. He had a possible pneumonia on admission. He was treated with antibiotics and got better. He had a lumbar puncture done which showed high protein. He has a Lyme PCR titre and a West Nile virus PCR pending. Until the results of those tests are back, we are continuing his doxycycline. These results should be follow up by the middle of next week to be sure they're back and negative before stopping doxycycline. Pending Studies at Discharge: No Stand-Alone Forms: My [facility] Skilled Items Patient informed of condition?: No DNR: No Discharge Level of Care: Skilled Communicable Disease: No Discharge Prognosis: Improving Lines: None Urinary Catheter: No Medications and DC Order Prescriptions: New doxycycline hyclate 100 mg Capsule 100 mg PO BID Qty: 1 RF: 0 isosorbide mononitrate 60 mg Tablet Extended Release 24 Hr 60 mg PO QAM Qty: 1 RF: 0 pantoprazole 40 mg Tablet,Delayed Release (Dr/Ec) 40 mg PO QAM Qty: 1 RF: 0 furosemide 20 mg Tablet 20 mg PO QAM Qty: 1 RF: 0 Continued aspirin 81 mg Tablet,Delayed Release (Dr/Ec) 81 mg PO DAILY RF: 0 cholecalciferol (vitamin D3) [Vitamin D3] 25 mcg (1,000 unit) Tablet 1,000 unit PO DAILY RF: 0 finasteride [Proscar] 5 mg Tablet 5 mg PO DAILY RF: 0 coenzyme Q10 [CoQ-10] 100 mg Capsule 100 mg PO DAILY RF: 0 atorvastatin [Lipitor] 10 mg tablet 10 mg PO HS RF: 0 clopidogrel [Plavix] 75 mg tablet 75 mg PO QAM RF: 0 lisinopril [Zestril] 2.5 mg tablet 2.5 mg PO HS RF: 0 Changed amlodipine [Norvasc] 5 mg Tablet 10 mg PO QAM Qty: 30 RF: 0 Discontinued calcium carbonate [Calcium 500] 500 mg calcium (1,250 mg) Tablet 500 mg PO DAILY RF: 0 Discharge Orders: Discharge Order (Routine); Ordered 09/02/19 Ordered By: Shayne Hernandez Admission Data Admit Date/Time: 08/25/19 23:08 Attending Provider: Shayne Hernandez Admit Provider: Carlos Shea Primary Care Provider: Hayden Arnett Other Providers: Ramírez Raymundo ; Víctor Brooks ; Deanna Preciado ; Nicole Hernandez ; Shayne Hernandez Other Interventions: Discharge Summary Assessment (RN) Last Done: 09/02/19 12:17 DC Date/Time DO NOT enter until pt leaves facility: 09/02/19 13:16 Coding Level of Care Code D/C Day Management >30 mins Diagnoses Acute respiratory failure with hypoxia J96.01 Acute on chronic diastolic (congestive) heart failure I50.33 Encephalopathy G93.40 Leukocytosis D72.829 Leukocytosis type: unspecified Duodenitis K29.80 Cellulitis of right lower extremity without foot L03.115 BPH (benign prostatic hyperplasia) N40.0 Hypertension I10 Hypertension type: essential hypertension Coronary artery disease I25.10 Non-ST elevation AL (NSTEMI) I21.4 Wenckebach second degree AV block I44.1 DVT prophylaxis Z29.9
[2019-09-05 17:40] LABS: Lyme DNA PCR CSF or Synovial Not detected (Not Detected); Lyme DNA Source CSF; VDRL Qualitative CSF Nonreactive (Nonreactive)
== END 2019-09-02 13:16 | DRG 193 ==
LOC: ED 16:34 → SUATTDRO 23:08 → 2S 23:08 → 1E 08-29 17:23 → 2N 08-31 09:02

== ENCOUNTER 2022-12-08 13:30 | Observation (INO) ==
--- NOTE | 2022-12-08 13:45 | Emergency Department Note ---
Impression & Plan Chest pain, Elevated troponin I level, Heart block ED Provider Note NAME: TULIO BECKMAN AGE: 82 SEX: M : 1940 ARRIVES VIA: Ambulance INFORMANT: Patient, EMS ED PROVIDER(S): Sergio Herzog DO CHIEF COMPLAINT: Chest pain HPI: The patient is an 82-year-old male who presented to the emergency department by ambulance. The patient does have some degree of underlying dementia history is limited somewhat. History was obtained from the EMS personnel. Also the patient lives in a personal long term and the [employer] did call to give report. Apparently the patient had an episode where he slid out of his wheelchair. He did not have significant pain and had no significant trauma but started complaining of chest pain which was reproducible. He was evaluated according to the patient by the provider and then sent to the emergency depar tment for further evaluation. The patient states he has no chest pain or headache at this time. He denies having any nausea or vomiting. He denies having abdominal pain. The patient at this time states he has been compliant with his outpatient medications and feels at his baseline. ROS: See above HPI for pertinent positives & negatives. A total of 10 systems reviewed and were otherwise negative. PAST MEDICAL HISTORY: See Below PAST SURGICAL HISTORY: See Below FAMILY HISTORY: See Below SOCIAL HISTORY: See Below HOME MEDICATIONS: See Below ALLERGIES: See Below VITALS: See Below PHYSICAL EXAMINATION: GENERAL: Patient is awake alert in no acute distress patient is resting comfortably and showing no signs of anxiety EYES: The conjunctivae are clear. The pupils are round and reactive. EARS, NOSE, MOUTH AND THROAT: The nose is without any evidence of any deformity. Mucous membranes are moist. Tongue is midline. NECK: The neck is nontender and supple. RESPIRATORY: Normal respiratory effort is noted there is no evidence of wheezing rhonchi or rales CARDIOVASCULAR: Ectopy was noted to auscultation. There is no definite murmur. GASTROINTESTINAL: The abdomen is soft. Abdomen is nontender. MUSCULOSKELETAL/EXTREMITIES: There is no evidence of gross deformity full range of motion is noted in the hips and shoulders. SKIN: The skin was warm and dry. Pedal edema was noted bilaterally. NEUROLOGIC: Patient is awake alert and oriented to person place and situation. Strength was diminished but symmetric. MEDICAL DECISION MAKING: The patient is an 82-year-old male who presented to the emergency department for an evaluation of chest pain. The patient has a history of a recent fall but was very minor. The patient had no complaints on arrival. I reviewed the patient's long term documentation states the patient had palpitations as well as an abnormal EKG with some degree of heart block. He was observed in the emergency department and was found to have multiple episodes of what appears to be consistent with second and third-degree heart block. I discussed the patient's condition with the on-call [facility]. He was treated with aspirin. He was found have an elevated troponin. They have agreed to evaluate the patient in the emergency department for further management and disposition. Triage Nursing notes reviewed. Prior medical records reviewed Vital Signs: reviewed and remarkable for bradycardia. Differential diagnosis: Cardiac ischemia, aortic dissection, pulmonary embolism, pneumothorax, pneumonia, pericarditis, myocarditis, esophageal rupture, GERD, cholecystitis, pancreatitis, musculoskeletal, as well as other pathologies. ER treatment provided: See below Diagnostics interpreted by me: ECG: EKG was obtained in the emergency department. My interpretation is sinus rhythm at 60 bpm. PACs were noted. PVCs were noted. LVH was suggested by volt age criteria. This was compared to a tracing from September 01, 2019. No specific changes were noted. Cardiac Monitoring: An order was placed for continuous cardiac monitoring. The monitor shows a rate of 37 bpm with variable heart block noted. Laboratory studies: As stated above and show below. Imaging studies: See below. Radiographic imaging was reviewed by myself Consultation(s): I discussed this case with Dr. Michel who is on-call for the [facility] group. He will evaluate the patient in the emergency department Past Med/Surg History Medical History (Updated 12/08/22 @ 15:08 by Sergio Herzog DO) Aortic aneurysm BPH (benign prostatic hyperplasia) Costochondritis Grade II diastolic dysfunction Hypertension Macrocytic anemia Mild mitral regurgitation Moderate aortic regurgitation Non-ST elevation IA (NSTEMI) on 08/18/2019 Stage 3a chronic kidney disease Surgical History H/O cardiac catheterization on 08/21/2019 Family History Other No pertinent family history in first degree relatives Social History Smoking Status: Never smoker Hx Alcohol Use: No Hx Substance Use: No Preferred Language: [place] Communication Ability: Effective Behavior Interventionist Required: No Beliefs That Will Affect Care: None marital status: Single Current Living Situation: Correction Feels Safe at Home: Yes Assistive Devices: Oxygen - Continuous Allergies Allergies Allergy/AdvReac Type Severity Reaction Status Date / Time No Known Allergies Allergy Unverified 12/15/19 10:18 Home Meds Home Medications Medication Instructions Recorded Confirmed aspirin 81 mg tablet,delayed 81 mg PO DAILY 08/18/19 12/08/22 release cholecalciferol (vitamin D3) 25 1,000 unit PO DAILY 08/18/19 12/08/22 mcg (1,000 unit) tablet (Vitamin D3) clopidogrel 75 mg tablet (Plavix) 75 mg PO QAM 08/25/19 12/08/22 coenzyme Q10 100 mg capsule 100 mg PO DAILY 08/25/19 12/08/22 (CoQ-10) finasteride 5 mg tablet 5 mg PO DAILY 09/08/19 12/08/22 magnesium hydroxide 400 mg/5 mL 30 ml PO DAILY PRN Constipation 12/15/19 12/08/22 oral suspension (Milk of Magnesia) acetaminophen 500 mg tablet 1,000 mg PO TID 12/08/22 12/08/22 acetaminophen 650 mg rectal 650 mg SC Q4H PRN Fever 12/08/22 12/08/22 suppository acetaminophen 650 mg rectal 650 mg SC Q4H PRN Pain 12/08/22 12/08/22 suppository allopurinol 100 mg tablet 100 mg PO DAILY 12/08/22 12/08/22 atorvastatin 40 mg tablet 40 mg PO HS 12/08/22 12/08/22 bumetanide 1 mg tablet 1 mg PO DAILY 12/08/22 12/08/22 calcitonin (salmon) 200 1 spray intranasal (ALT) DAILY 12/08/22 12/08/22 unit/actuation nasal spray cyanocobalamin (vitamin B-12) 1,000 mcg IM DAILY 12/08/22 12/08/22 1,000 mcg/mL injection solution donepezil 10 mg tablet 10 mg PO DAILY 12/08/22 12/08/22 gabapentin 100 mg capsule 100 mg PO HS 12/08/22 12/08/22 levothyroxine 25 mcg tablet 25 mcg PO DAILY 12/08/22 12/08/22 Previous Rx's Medication Instructions Recorded isosorbide mononitrate 60 mg 60 mg PO QAM #1 tab 09/02/19 tablet,extended release 24 hr pantoprazole 40 mg tablet,delayed 40 mg PO QAM #1 tab 09/02/19 release Results & Data (ED) Vital Signs Vital Signs - 24 hr 12/08/22 13:35 12/08/22 13:58 12/08/22 13:40 Temperature 36.9 C Temperature Source Oral Pulse Rate 58 L 52 L Pulse Rate [Left Apical] Pulse Rhythm [Left Apical] Pulse Strength Normal Respiratory Rate 19 Respiratory Effort / Characteristics Non-Labored Spontaneous Respiratory Depth Normal Respiratory Pattern Regular Blood Pressure 171/70 H Blood Pressure [Left Arm] Blood Pressure Mean 103 Blood Pressure Mean [Left Arm] Pulse Oximetry 95 96 Oxygen Delivery Method Room Air Room Air Sepsis Recent Fever Within 48 Hours No Sepsis New/Unexplained Change in Mental Status No Sepsis Action Taken by Nursing No Action Required 12/08/22 14:35 12/08/22 15:06 12/08/22 15:06 Temperature Temperature Source Pulse Rate 37 L Pulse Rate [Left Apical] 53 L 53 L Pulse Rhythm [Left Apical] Irregular Pulse Strength Respiratory Rate 20 16 Respiratory Effort / Characteristics Non-Labored Spontaneous Respiratory Depth Normal Respiratory Pattern Blood Pressure Blood Pressure [Left Arm] 141/67 H Blood Pressure Mean Blood Pressure Mean [Left Arm] 91 Pulse Oximetry 96 90 Oxygen Delivery Method Room Air Sepsis Recent Fever Within 48 Hours Sepsis New/Unexplained Change in Mental Status Sepsis Action Taken by Correction Medications Current Medication List: was personally reviewed by me Laboratory Data Attestation: I reviewed the patient's lab results. 12/08/22 13:50 12/08/22 13:50 Lab Results 12/08/22 12/08/22 12/08/22 Range/Units 13:50 13:50 15:18 WBC 9.58 (4.8-10.8) K/ul RBC 4.52 L (4.70-6.10) M/uL Hgb 14.5 (14.0-18.0) g/dl Hct 44.5 (42.0-52.0) % MCV 98.5 (80.0-100.0) fL MCH 32.1 (25.0-34.0) pg MCHC 32.6 (32.0-36.0) g/dL RDW Std Deviation 58.4 H (36.4-46.3) fL RDW Coeff of Marisol 15.9 H (11.5-14.5) % Plt Count 245 (130-400) K/uL MPV 11.4 (9.4-12.4) fL Immature Gran % (Auto) 0.5 % Neut % (Auto) 77.8 % Lymph % (Auto) 13.3 % [place] % (Auto) 7.5 % Eos % (Auto) 0.5 % Baso % (Auto) 0.4 % Neut # (Auto) 7.45 H (1.40-6.50) K/uL Lymph # (Auto) 1.27 (1.2-3.4) K/uL [place] # (Auto) 0.72 H (0.11-0.59) K/uL Eos # (Auto) 0.05 (0-0.50) K/uL Baso # (Auto) 0.04 (0-0.2) K/uL Immature Gran # (Auto) 0.05 (0.01-0.20) K/uL Sodium 138 (136-145) mmol/L Potassium 4.3 (3.5-5.1) mmol/L Chloride 104 (98-107) mmol/L Carbon Dioxide 26 (21-32) mmol/L Anion Gap 8 (3-11) BUN 24 H (6-23) mg/dl Creatinine 1.32 (0.6-1.4) mg/dl Est Cr Clr Drug Dosing 50.6 ml/min Est GFR ( Amer) 57.4 ml/min Est GFR (Non-Af Amer) 49.5 ml/min BUN/Creatinine Ratio 18.2 (10-20) Glucose 136 H (70-99(Fasting)) mg/dl Calcium 9.9 (8.6-10.3) mg/dl Total Bilirubin 0.7 (0.2-1.0) mg/dl AST 17 (13-39) U/L ALT 10 (7-52) U/L Alkaline Phosphatase 76 (34-104) U/L Troponin I High Sens 73.3 H* (0-20) pg/ml Total Protein 8.4 H (6.0-8.3) gm/dl Albumin 4.3 (3.4-5.0) gm/dl Globulin 4.1 H (2.5-4.0) gm/dl Albumin/Globulin Ratio 1.0 (0.9-2) Lipase 31 (11-82) U/L SARS-CoV-2, RNA, NAAT NEGATIVE (NEGATIVE) Administered Medications Discontinued Medications Aspirin (Aspirin Chew 324 Mg) 324 mg PO NOW STA Stop: 12/08/22 15:07 Last Admin: 12/08/22 15:17 Dose: 324 mg Documented By: RIGOBERTO Imaging Data Attestation: I personally reviewed and interpreted this imaging study as fo llows: My Impression: 1 view chest x-ray was obtained in the emergency department. My interpretation is no free air or definite infiltrate, final report below. Radiologist's Impression: Chest X-Ray 12/08/22 13:40 XR chest 1V portable CLINICAL HISTORY: Chest pain, nonspecific TECHNIQUE: Single frontal radiograph of the chest was obtained. Comparison: Comparison is made to chest radiograph 08/31/2019 FINDINGS: Median sternotomy wires are unchanged. Left shoulder orthopedic hardware is noted. Cardiomegaly is noted. The aortic arch is calcified. The lungs are clear. No evidence of pleural effusion or pneumothorax. IMPRESSION: No acute chest disease. Cardiomegaly is noted. ACT 112: Negative or not required by law. Electronically signed by: Guillaume Lazar M.D. 12/08/2022 2:09 PM Discharge Plan Visit Data Chief Complaint: Chest Pain Stated Complaint: CHEST PAIN ED Provider: Sergio Herzog Discharge Problem: Chest pain, Elevated troponin I level, Heart block Patient Disposition: Being Evaluated by Hospitalist Forms Stand Alone Forms: My [facility] Prescriptions Prescriptions: No Action magnesium hydroxide [Milk of Magnesia] 400 mg/5 mL suspension 30 ml PO DAILY PRN (Reason: Constipation) Rx Instructions: EVERY 48 HOURS IF NO BM FOR 2 DAYS finasteride 5 mg tablet 5 mg PO DAILY aspirin 81 mg Tablet,Delayed Release (Dr/Ec) 81 mg PO DAILY cholecalciferol (vitamin D3) [Vitamin D3] 25 mcg (1,000 unit) Tablet 1,000 unit PO DAILY coenzyme Q10 [CoQ-10] 100 mg Capsule 100 mg PO DAILY clopidogrel [Plavix] 75 mg tablet 75 mg PO QAM isosorbide mononitrate 60 mg Tablet Extended Release 24 Hr 60 mg PO QAM Qty: 1 0RF pantoprazole 40 mg Tablet,Delayed Release (Dr/Ec) 40 mg PO QAM Qty: 1 0RF atorvastatin 40 mg Tablet 40 mg PO HS acetaminophen 650 mg Suppository 650 mg SC Q4H PRN (Reason: Fever) acetaminophen 650 mg Suppository 650 mg SC Q4H MDD 3MG APAP/24 HOURS PRN (Reason: Pain) donepezil 10 mg Tablet 10 mg PO DAILY allopurinol 100 mg Tablet 100 mg PO DAILY acetaminophen [Tylenol Ex Str Rapid Release] 500 mg Tablet 1,000 mg PO TID Rx Instructions: HIP/BACK PAIN levothyroxine 25 mcg Tablet 25 mcg PO DAILY calcitonin (salmon) [Miacalcin] 200 unit/actuation [place],Non-Aerosol 1 spray intranasal (ALT) DAILY cyanocobalamin (vitamin B-12) [Cyanacobalamin] 1,000 mcg/mL Solution 1,000 mcg IM DAILY bumetanide [Bumex] 1 mg Tablet 1 mg PO DAILY gabapentin 100 mg Capsule 100 mg PO HS Referrals Referrals: Hayden Arnett [Primary Care Provider] -
--- NOTE | 2022-12-08 14:10 | XRay Report ---
XR chest 1V portable CLINICAL HISTORY: Chest pain, nonspecific TECHNIQUE: Single frontal radiograph of the chest was obtained. Comparison: Comparison is made to chest radiograph 08/31/2019 FINDINGS: Median sternotomy wires are unchanged. Left shoulder orthopedic hardware is noted. Cardiomegaly is no luis. The aortic arch is calcified. The lungs are clear. No evidence of pleural effusion or pneumothor ax. IMPRESSION: No acute chest disease. Cardiomegaly is noted. ACT 112: Negative or not required by law. Electronically signed by: Guillaume Lazar M.D. 12/08/2022 2:09 PM
[2022-12-08 14:33] LABS: Basophils # (auto) 0.04 K/uL (0-0.2); Basophils % (auto) 0.4 %; Eosinophils # (auto) 0.05 K/uL (0-0.50); Eosinophils % (auto) 0.5 %; Hematocrit (blood only) 44.5 % (42.0-52.0); Hemoglobin 14.5 g/dl (14.0-18.0); Immature Granulocytes # (auto) 0.05 K/uL (0.01-0.20); Immature Granulocytes % (auto) 0.5 %; Lymphocytes # (auto) 1.27 K/uL (1.2-3.4); Lymphocytes % (auto) 13.3 %; Mean Corpuscular Hemoglobin 32.1 pg (25.0-34.0); Mean Corpuscular Hgb Conc 32.6 g/dL (32.0-36.0); Mean Corpuscular Volume 98.5 fL (80.0-100.0); Mean Platelet Volume 11.4 fL (9.4-12.4); Monocytes # (auto) 0.72 K/uL (0.11-0.59); Monocytes % (auto) 7.5 %; Neutrophils # (auto) 7.45 K/uL (1.40-6.50); Neutrophils % (auto) 77.8 %; Platelet Count 245 K/uL (130-400); RDW Coefficient of Variation 15.9 % (11.5-14.5); RDW Standard Deviation 58.4 fL (36.4-46.3); Red Blood Count 4.52 M/uL (4.70-6.10); White Blood Count 9.58 K/ul (4.8-10.8)
[2022-12-08 14:41] LABS: Albumin Level 4.3 gm/dl (3.4-5.0); BUN Creatinine Ratio 18.2 (10-20); Bilirubin,Total 0.7 mg/dl (0.2-1.0); Calcium 9.9 mg/dl (8.6-10.3); Creatinine Clr Calc Pharmacy 50.6 ml/min; Est GFR (African American) 57.4 ml/min; Est GFR (Non-African American) 49.5 ml/min; Globulin 4.1 gm/dl (2.5-4.0); Potassium 4.3 mmol/L (3.5-5.1); Total Protein 8.4 gm/dl (6.0-8.3)
[2022-12-08 14:53] LABS: Troponin I High Sensitivity 73.3 pg/ml (0-20)
[2022-12-08] MEDS ORDERED: ASPIRIN CHEW 324 MG PO STA (15:06)
--- NOTE | 2022-12-08 15:53 | History & Physical Report ---
Date of Service December 08, 2022 Assessment & Plan (1) Chest pain: Plan: -Admit to the PCU on tele -Currently stable with a variable HR from the 30's-60's, patient has been stable and asymptomatic -Nursing staff reported that the patient was found sitting on the ground in front of his recliner this am, later complained of chest pain -Review of ECG and tele in the ED appears consistent with his history of Type 1, second degree AV block as the NC interval gets progressively longer before a QRS complex is dropped -No acute ST segment or T-wave changes -Initial high sen trop elevated at 73, will repeat a STAT 2 hour high sen trop now -Continue to monitor on tele, will trend high sen trop q6h overnight -Will obtain TTE in the AM for further evaluation -Will continue home Aspirin/Plavix for previous CABG and JIAN placement -Cardiology consult placed -BL SCD's and SQ heparin for DVT PPX -HH diet until midnight then NPO except meds in case of procedure tomorrow (2) Elevated troponin I level: Plan: -See chest pain -At this time appears more consistent with demand ischemia due to fall and being on ground for unknown amount of time -Continue to trend trop and monitor on tele (3) Nayeli second degree AV block: Plan: -Appears consistent today with previous diagnosis -Avoid AV burton blocking agents -Continue to monitor on tele (4) Fall: Plan: -Patient found on ground this am by nursing staff, he reported to the them that he slipped out of his recliner -Patient down for unknown amount of time -Denies any pain, no acute trauma or pain on exam -Will obtain CK level, fall precautions ordered (5) Compression fracture of L4 vertebra: Plan: -Patient's POA/sister reports the patient sustained an L4 compression fracture after a fall approximately 2-3 weeks ago -Has been on daily intranasal calcitonin -[place] confirms his last dose is tomorrow, will continue -Patient was without pain, crepitus, or step off's on spinal exam today, will hold on additional imaging at this time. If he complains of any pain would repeat imaging -Fall precuations ordered (6) Coronary artery disease involving coronary bypass graft of mary's igloo heart: Plan: -Continue Aspirin and Plavix (7) Dementia: Plan: -Continue Donepezil (8) Heart failure with preserved ejection fraction: Plan: -Appears Euvolemic on exam -Continue Imdur and daily Bumex Plan The patient was discussed with Dr. Camejo at the time of the admission History of Present Illness Chief Complaint: Chest pain, slid out of wheelchair Primary Care Provider: Hayden Hope Rodriguez is an 82 year old male with a PMH significant for CAD S/P CABG with STENT placement in 2016, last hear cath at [facility] in 2019 with Severe mary's igloo vessel disease, Patent bypass grafts, and elevated left ventricular end- diastolic pressure, Wenckebach second degree AV block, HFpEF, hypertension, hyperlipidemia, dementia, and BPH who presented to the [facility] ED on 12/08/22 via EMS from [facility] due to an episode of sliding out of his wheelchair and experiencing chest pain. In the ED the patient was noted to be bradycardic with HR in the 30-50's but otherwise stable. Labs were significant for a high sen trop of 73. Chest xray was read as "No acute chest disease. Cardiomegaly is noted.". ECG was showing what appeared to be a type 2 AV block. Prior to admission the patient was given 324 mg aspirin. At the time of the exam the patient was sitting in bed in no acute distress. The patient was able to provide little history due to his baseline mental status. He currently has no complaints and denies any chest pain, SOB, cough, abd pain, head/neck/back pain, nausea, vomiting, diarrhea, dysuria, hematuria, melena, and LE swelling. I called and spoke to [facility] nursing staff who provided additional information. The patient was found on the ground this am, sitting on his buttocks in front of his recliner. He reported to staff that he slid out of his recline and was on the ground for an unknown amount of time. The patient was assisted up and had breakfast. He later reported chest pain to nursing staff who obtained an ECG and spoke to the [employer] WORKER and MD at [facility]. Due to the patient's fall, generalized weakness, and reported chest pain they wanted him evaluated in the ED. The confirmed that the patient had all his am medications prior to EMS arrival. I was also able to call and speak with the patient's sister/POA (Beverly Lang [phone]). She confirmed that the patient had previous CABG and JIAN placement. She also stated that the patient had a previous fall about 3 weeks ago with a known L4 compression fracture. We had a long discussion regarding code status as the patient was previously a Full code. She explains that the patient's cognitive function has declined substantially over the past year with his dementia, now requiring assistance at [facility]. She does not believe that her brother would want to be a full code at this time and would want to be a DNR/DNI as his quality of life has significantly changed and would likely become worse if he were to require CPR and/or intubation. Please refer to Dr. Camejo's attestation for any changes to the treatment plan Allergies Allergy/AdvReac Type Severity Reaction Status Date / Time No Known Allergies Allergy Unverified 12/15/19 10:18 Home Medications Medication Instructions Recorded Confirmed Type aspirin 81 mg tablet,delayed 81 mg PO DAILY 08/18/19 12/08/22 History release cholecalciferol (vitamin D3) 25 1,000 unit PO DAILY 08/18/19 12/08/22 History mcg (1,000 unit) tablet (Vitamin D3) clopidogrel 75 mg tablet (Plavix) 75 mg PO QAM 08/25/19 12/08/22 History coenzyme Q10 100 mg capsule 100 mg PO DAILY 08/25/19 12/08/22 History (CoQ-10) isosorbide mononitrate 60 mg 60 mg PO QAM #1 tab 09/02/19 12/08/22 Rx tablet,extended release 24 hr pantoprazole 40 mg tablet,delayed 40 mg PO QAM #1 tab 09/02/19 12/08/22 Rx release finasteride 5 mg tablet 5 mg PO DAILY 09/08/19 12/08/22 History magnesium hydroxide 400 mg/5 mL 30 ml PO DAILY PRN Constipation 12/15/19 12/08/22 History oral suspension (Milk of Magnesia) acetaminophen 500 mg tablet 1,000 mg PO TID 12/08/22 12/08/22 History acetaminophen 650 mg rectal 650 mg NC Q4H PRN Fever 12/08/22 12/08/22 History suppository acetaminophen 650 mg rectal 650 mg NC Q4H PRN Pain 12/08/22 12/08/22 History suppository allopurinol 100 mg tablet 100 mg PO DAILY 12/08/22 12/08/22 History atorvastatin 40 mg tablet 40 mg PO HS 12/08/22 12/08/22 History bumetanide 1 mg tablet 1 mg PO DAILY 12/08/22 12/08/22 History calcitonin (salmon) 200 1 spray intranasal (ALT) DAILY 12/08/22 12/08/22 History unit/actuation nasal spray cyanocobalamin (vitamin B-12) 1,000 mcg IM DAILY 12/08/22 12/08/22 History 1,000 mcg/mL injection solution donepezil 10 mg tablet 10 mg PO DAILY 12/08/22 12/08/22 History gabapentin 100 mg capsule 100 mg PO HS 12/08/22 12/08/22 History levothyroxine 25 mcg tablet 25 mcg PO DAILY 12/08/22 12/08/22 History Past Med/Surg History Medical History (Updated 12/08/22 @ 17:01 by William Gan PA-C) Aortic aneurysm BPH (benign prostatic hyperplasia) Costochondritis Grade II diastolic dysfunction Hypertension Macrocytic anemia Mild mitral regurgitation Moderate aortic regurgitation Non-ST elevation CA (NSTEMI) on 08/18/2019 Stage 3a chronic kidney disease Surgical History H/O cardiac catheterization on 08/21/2019 Family History Other No pertinent family history in first degree relatives Social History Smoking Status: Former smoker Hx Alcohol Use: No Hx Substance Use: No Preferred Language: Swiss Communication Ability: Effective Card Sorter Required: No Beliefs That Will Affect Care: None marital status: Single Current Living Situation: [facility] Current Living Situation Comment: [facility] Feels Safe at Home: Yes Safety Concerns: Feels Safe At This Time Assistive Devices: None Assistive Devices Comment: per patient [facility]'t use [facility] Physical Exam Physical Exam: Physical Exam: General: In no acute distress, stated age, well-nourished, good hygiene, non- toxic appearing HEENT: Normocephalic, atraumatic, no scleral icterus, pupils around round, symmetrical, and reactive to light, moist mucus membranes, trachea midline, no thyromegaly Chest/Pulm: No reproducible chest pain on palpation, No respiratory distress, symmetrical chest expansion, clear breath sounds throughout Cardiac: regular rate, irregular rhythm, systolic murmur noted Abdomen: Negative for ascites and bruising, normoactive bowel sounds, soft, non-tender to palpation throughout Musculoskeletal: Symmetrical and without signs of acute trauma, upper and lower extremities with full ROM, no atrophy, spasticity, or flaccidity. No trauma or tenderness to palpation of the head, neck, cervical, thoracic, or lumbar spine Extremities: Radial, dorsalis pedis, and posterior tibial pulses are intact and symmetrical, no edema noted in the BL LE's Skin: Warm, dry, no rashes , lesions, or scars noted Neuro: Alert and oriented to person, place, only no focal defects, CN II-XII tested and intact, no tremors noted, frequently repeats himself and quickly forgets what we already spoke about Psych: No acute distress, calm and cooperative during the exam Results & Data Results & Data Vital Signs (Past 12 Hours) Vital Signs Temp Pulse Pulse Resp BP BP Pulse Ox 12/08/22 15:06 37 L 12/08/22 15:06 53 L 16 141/67 H 90 12/08/22 14:35 53 L 20 96 12/08/22 13:40 96 12/08/22 13:58 52 L 12/08/22 13:35 36.9 C 58 L 19 171/70 H 95 O2 Del Method 12/08/22 15:06 12/08/22 15:06 12/08/22 14:35 Room Air 12/08/22 13:40 Room Air 12/08/22 13:58 12/08/22 13:35 Room Air Laboratory Results Abnormal lab results 12/08/22 12/08/22 Range/Units 13:50 13:50 RBC 4.52 L (4.70-6.10) M/uL RDW Std Deviation 58.4 H (36.4-46.3) fL RDW Coeff of Marisol 15.9 H (11.5-14.5) % Neut # (Auto) 7.45 H (1.40-6.50) K/uL [place] # (Auto) 0.72 H (0.11-0.59) K/uL BUN 24 H (6-23) mg/dl Glucose 136 H (70-99(Fasting)) mg/dl Troponin I High Sens 73.3 H* (0-20) pg/ml Total Protein 8.4 H (6.0-8.3) gm/dl Globulin 4.1 H (2.5-4.0) gm/dl Diagnostic Findings Chest X-Ray 12/08/22 13:40 XR chest 1V portable CLINICAL HISTORY: Chest pain, nonspecific TECHNIQUE: Single frontal radiograph of the chest was obtained. Comparison: Comparison is made to chest radiograph 08/31/2019 FINDINGS: Median sternotomy wires are unchanged. Left shoulder orthopedic hardware is noted. Cardiomegaly is noted. The aortic arch is calcified. The lungs are clear. No evidence of pleural effusion or pneumothorax. IMPRESSION: No acute chest disease. Cardiomegaly is noted. ACT 112: Negative or not required by law. Electronically signed by: Guillaume Lazar M.D. 12/08/2022 2:09 PM ECG Additional Comments: Atrial fibrillation Minimal voltage criteria for LVH, may be normal variant ( R in aVL ) T wave abnormality, consider lateral ischemia Abnormal ECG When compared with ECG of 01-SEP-2019 07:36, Atrial fibrillation has replaced Sinus rhythm Incomplete right bundle branch block is no longer Present Code Status & VTE Plan Code Status DNR/DNI VTE Prophylaxis Plan VTE Prophylaxis will be ordered: Yes Supervising Physician Co-Signing Physician Notes Patient seen and examined, chart reviewed, case discussed with William Gan PA-C and I agree with the assessment and plan as above except as otherwise noted Labs and images reviewed Michael is an 82-year-old male with past medical history of CABG, PCI, Wenke Bach AV block, heart failure with preserved ejection fraction, dementia who presented with weakness and chest pain. He was bradycardic in the ER but with chronotropic response. History is significantly limited by dementia. Heart rate is irregular and intermittently bradycardic. No chest pain on admission, no reproducible chest pain on exam. High-sensitivity troponin consistent with demand, this is been trended. TTE pending. No beta-jr/calcium channel blockers, will complete ischemic work-up no additional treatment required at this time for a Wenckebach rhythm. Agree with management as above PG Care Time/CCT Total # of Minutes Spent Total Time Spent with Patient: Total time spent is greater than 50% in coordination of care (as documented) at patient's floor/unit and/or counseling patient: Coding [place] [address] INT INP/OBS CARE MIN Patient Type Established Medical Decision Making High Complexity Diagnoses Chest pain R07.9 Chest pain type: unspecified Elevated troponin I level R77.8 Nayeli second degree AV block I44.1 Fall W19.XXXA Compression fracture of L4 vertebra S32.040A Coronary artery disease involving coronary bypass graft of mary's igloo heart I25.810 Dementia F03.90 Heart failure with preserved ejection fraction I50.30 (1) Chest pain Chest pain type: unspecified Qualified Code(s): R07.9 - Chest pain, unspecified
--- NOTE | 2022-12-08 18:08 | Cardiology Consultation ---
Date of Consultation December 08, 2022 Assessment & Plan (1) Elevated troponin I level: (2) Heart block: (3) Coronary artery disease involving coronary bypass graft of round [place] heart: (4) Moderate aortic regurgitation: (5) Aortic aneurysm: Plan 1. Abnormal troponin: He is a very mild elevation in his troponin. Does not seem to be a reliable historian. He was admitted over 3 years ago with an NSTEMI, at that time his degree of biomarker elevation was significantly higher. No symptoms currently. I think we will simply trend his biomarkers. In the absence of a significant elevation I would continue aggressive secondary prevention including continuation of his dual anti-platelet therapy. 2. Coronary disease: Status post surgical revascularization remotely. Patent grafts in 2020. He did not endorse symptoms of coronary insufficiency or angina although he is a very poor historian. He can continue his medical regimen which includes high-dose atorvastatin and dual anti-platelet therapy. Unclear if he requires isosorbide in the absence of angina. Perhaps this is being used for blood pressure control. 3. Heart block: He appears to have but Mobitz 1 heart block. This is in the setting of occasional PACs which makes interpretation difficult at times. He was known to have similar conduction 3 years ago. It likely has progressed to some degree. Unclear if there are any symptoms associated with the resultant bradycardia. I think we will have an opportunity to watch him ambulated some point and we can monitor the heart rate with ambulation. I do not believe there is a current indication for permanent pacing should also be noted that donepezil could result in some bradycardia as well. The utility of this medication should be re-evaluated. 4. Valvular heart disease: He is known to have an element of aortic insufficiency. We can repeat an echocardiogram. While he is certainly not a candidate for any valve intervention, any change in the chamber dimensions or LV function may prompt us to be more aggressive with medical therapy. 5. Aortic aneurysm: He was noted to have very minor dilation in the ascending thoracic aorta on prior imaging. Do not think there is any need for repeat evaluation. Certainly not a candidate for intervention. I tried to discuss his desire for additional procedures versus conservative care. He seems somewhat confused by the question as he is convinced he is in excellent health and it should not need any type of medical intervention. Final recommendations: Echocardiogram Continue current medical therapy Trend biomarkers Re-evaluate utility of donepezil History of Present Illness Reason for Consultation: Elevated troponin, bradycardia, conduction disease Requesting Physician: Elvia Attending Physician: Jace Camejo MD History of Present Illness The patient is an 82-year-old gentleman with a history of coronary artery disease having previously undergone surgical revascularization who was brought to the hospital from his nursing facility after complaining of chest pain. The patient suffers from significant dementia. He is able to answer questions, but could not provide any substantial history related to today's events. In fact, he was not aware of any symptoms earlier today. He could not explain to me how he came to the hospital or why he is in the hospital. Review of his record including an interview from the nurses at his facility suggest that he was initially found in his room sitting on the floor earlier today. Did not appear to be any indication that he had a syncopal event. He was helped back to his chair and later complained of chest pain. Based on these events he was sent to the emergency room for evaluation. The patient currently denies any symptoms of chest discomfort. He denies a history of chest discomfort, dizziness, lightheadedness or difficulty with ambulation. He did not report using any assistive devices with ambulation. He cannot recall any prior hospitalizations including 1 at our facility 3 years ago. Allergies Allergy/AdvReac Type Severity Reaction Status Date / Time No Known Allergies Allergy Unverified 12/15/19 10:18 Home Medications Medication Instructions Recorded Confirmed Type aspirin 81 mg tablet,delayed 81 mg PO DAILY 08/18/19 12/08/22 History release cholecalciferol (vitamin D3) 25 1,000 unit PO DAILY 08/18/19 12/08/22 History mcg (1,000 unit) tablet (Vitamin D3) clopidogrel 75 mg tablet (Plavix) 75 mg PO QAM 08/25/19 12/08/22 History coenzyme Q10 100 mg capsule 100 mg PO DAILY 08/25/19 12/08/22 History (CoQ-10) isosorbide mononitrate 60 mg 60 mg PO QAM #1 tab 09/02/19 12/08/22 Rx tablet,extended release 24 hr pantoprazole 40 mg tablet,delayed 40 mg PO QAM #1 tab 09/02/19 12/08/22 Rx release finasteride 5 mg tablet 5 mg PO DAILY 09/08/19 12/08/22 History magnesium hydroxide 400 mg/5 mL 30 ml PO DAILY PRN Constipation 12/15/19 12/08/22 History oral suspension (Milk of Magnesia) acetaminophen 500 mg tablet 1,000 mg PO TID 12/08/22 12/08/22 History acetaminophen 650 mg rectal 650 mg MI Q4H PRN Fever 12/08/22 12/08/22 History suppository acetaminophen 650 mg rectal 650 mg MI Q4H PRN Pain 12/08/22 12/08/22 History suppository allopurinol 100 mg tablet 100 mg PO DAILY 12/08/22 12/08/22 History atorvastatin 40 mg tablet 40 mg PO HS 12/08/22 12/08/22 History bumetanide 1 mg tablet 1 mg PO DAILY 12/08/22 12/08/22 History calcitonin (salmon) 200 1 spray intranasal (ALT) DAILY 12/08/22 12/08/22 History unit/actuation nasal spray cyanocobalamin (vitamin B-12) 1,000 mcg IM DAILY 12/08/22 12/08/22 History 1,000 mcg/mL injection solution donepezil 10 mg tablet 10 mg PO DAILY 12/08/22 12/08/22 History gabapentin 100 mg capsule 100 mg PO HS 12/08/22 12/08/22 History levothyroxine 25 mcg tablet 25 mcg PO DAILY 12/08/22 12/08/22 History Patient History Medical History (Updated 12/08/22 @ 17:01 by William Gan PA-C) Aortic aneurysm BPH (benign prostatic hyperplasia) Costochondritis Grade II diastolic dysfunction Hypertension Macrocytic anemia Mild mitral regurgitation Moderate aortic regurgitation Non-ST elevation WI (NSTEMI) on 08/18/2019 Stage 3a chronic kidney disease Surgical History H/O cardiac catheterization on 08/21/2019 Family History Other No pertinent family history in first degree relatives Social History Smoking Status: Former smoker Hx Alcohol Use: No Hx Substance Use: No Preferred Language: Divehi Communication Ability: Effective Inspector Hairspring Truing Required: No Beliefs That Will Affect Care: None marital status: Single Current Living Situation: Residential Current Living Situation Comment: [facility] Feels Safe at Home: Yes Safety Concerns: Feels Safe At This Time Assistive Devices: None Assistive Devices Comment: per patient doesn't use any assistive devices at [facility] Review of Systems Review of Systems: Unobtainable due to cognitive status Physical Exam Physical Exam: The patient is alert. He answered questions, but seemed quite forgetful. HEENT: Pupils are equal and reactive to light and accommodation. Extraocular movements are intact. The sclerae are anicteric. Neuro: Cranial nerves intact Lungs: Clear to auscultation bilaterally. He has good air movement without use of accessory muscles. No rales wheezes or rhonchi. Cardiac: The heart rhythm was irregular. Normal S1 and S2. Holosystolic murmur. Abdomen: Nontender. Obese Pulses: The patient has palpable radial pulses bilaterally that are equal in intensity Extremities: There was no evidence of hypoperfusion. There is no cyanosis or clubbing. He was wearing SCDs Skin: I did not appreciate any rashes on examination today. Results & Data Vital Signs (Past 12 Hours) Vital Signs Temp Pulse Pulse Resp BP BP Pulse Ox 12/08/22 16:55 12/08/22 16:59 36.5 C 56 L 16 173/49 H 93 12/08/22 16:54 61 18 128/88 96 12/08/22 15:06 37 L 12/08/22 15:06 53 L 16 141/67 H 90 12/08/22 14:35 53 L 20 96 12/08/22 13:40 96 12/08/22 13:58 52 L 12/08/22 13:35 36.9 C 58 L 19 171/70 H 95 O2 Del Method 12/08/22 16:55 Room Air 12/08/22 16:59 Room Air 12/08/22 16:54 12/08/22 15:06 12/08/22 15:06 12/08/22 14:35 Room Air 12/08/22 13:40 Room Air 12/08/22 13:58 12/08/22 13:35 Room Air Laboratory Results Abnormal Lab Results 12/08/22 12/08/22 12/08/22 13:50 13:50 15:18 WBC 9.58 RBC 4.52 L Hgb 14.5 Hct 44.5 MCV 98.5 MCH 32.1 MCHC 32.6 RDW Std Deviation 58.4 H RDW Coeff of Marisol 15.9 H Plt Count 245 MPV 11.4 Immature Gran % (Auto) 0.5 Neut % (Auto) 77.8 Lymph % (Auto) 13.3 Davison % (Auto) 7.5 Eos % (Auto) 0.5 Baso % (Auto) 0.4 Neut # (Auto) 7.45 H Lymph # (Auto) 1.27 Davison # (Auto) 0.72 H Eos # (Auto) 0.05 Baso # (Auto) 0.04 Immature Gran # (Auto) 0.05 Sodium 138 Potassium 4.3 Chloride 104 Carbon Dioxide 26 Anion Gap 8 BUN 24 H Creatinine 1.32 Est Cr Clr Drug Dosing 50.6 Est GFR ( Amer) 57.4 Est GFR (Non-Af Amer) 49.5 BUN/Creatinine Ratio 18.2 Glucose 136 H Calcium 9.9 Total Bilirubin 0.7 AST 17 ALT 10 Alkaline Phosphatase 76 Troponin I High Sens 73.3 H* Total Protein 8.4 H Albumin 4.3 Globulin 4.1 H Albumin/Globulin Ratio 1.0 Lipase 31 SARS-CoV-2, RNA, NAAT NEGATIVE Diagnostic Findings Chest x-ray obtained the time admission did not reveal any acute cardiopulmonary process. Cardiac catheterization performed 08/26/2019: Severe [place] vessel disease with widely patent COBURN to LAD, SVG to OM and SVG to PDA. Echocardiogram performed 08/19/2019: Normal LV systolic function. Stage II diastolic dysfunction. Moderate aortic regurgitation. Mild mitral regurgitation. PG Care Time/CCT Total # of Minutes Spent Total Time Spent with Patient: Total time spent is greater than 50% in coordination of care (as documented) at patient's floor/unit and/or counseling patient: Coding Level of Care Code 88029 INT INP/OBS CARE 3/75MIN Diagnoses Elevated troponin I level R77.8 Heart block I45.9 Coronary artery disease involving coronary bypass graft of round valley heart I25.810 Moderate aortic regurgitation I35.1 Aortic aneurysm I71.9
[2022-12-08 18:20] LABS: Magnesium 1.9 mg/dl (1.7-2.4)
[2022-12-08] MEDS ORDERED: MAGNESIUM SULFATE / D5W 1 GM/100 ML BAG IV ONE (18:26)
[2022-12-08 18:28] LABS: Troponin I High Sensitivity 76.4 pg/ml (0-20)
--- NOTE | 2022-12-08 18:30 | Electrocardiogram Report ---
Test Reason : Blood Pressure : / mmHG Vent. Rate : 068 BPM Atrial Rate : 000 BPM P-R Int : 000 ms QRS Dur : 086 ms QT Int : 430 ms P-R-T Axes : 000 -09 125 degrees QTc Int : 457 ms Sinus rhythm with PACs (some blocked) and both 1st degree and second degree type I AV block Premature ventricular complexes Minimal voltage criteria for LVH, may be normal variant Nonspecific ST abnormality Abnormal ECG When compared with ECG of 01-SEP-2019 07:36, Incomplete right bundle branch block is no longer Present Confirmed by Delroy Alonso ([id number]) on 12/08/2022 6:30:25 PM Referred By: [facility] Confirmed By:Feranndo Alonso
[2022-12-08] MEDS: HEPARIN SOD 5,000 UNIT/0.5 ML VIAL SQ SCH (20:13)
[2022-12-08] MEDS ORDERED: GABAPENTIN 100 MG CAP PO SCH (21:00)
[2022-12-08] MEDS ORDERED: ATORVASTATIN 40 MG TAB PO SCH (21:00)
[2022-12-09 04:45] LABS: Hematocrit (blood only) 39.6 % (42.0-52.0); Hemoglobin 13.1 g/dl (14.0-18.0); Mean Corpuscular Hemoglobin 32.7 pg (25.0-34.0); Mean Corpuscular Hgb Conc 33.1 g/dL (32.0-36.0); Mean Corpuscular Volume 98.8 fL (80.0-100.0); Mean Platelet Volume 11.4 fL (9.4-12.4); Platelet Count 216 K/uL (130-400); RDW Coefficient of Variation 15.8 % (11.5-14.5); RDW Standard Deviation 57.5 fL (36.4-46.3); Red Blood Count 4.01 M/uL (4.70-6.10); White Blood Count 7.69 K/ul (4.8-10.8)
[2022-12-09 04:58] LABS: Albumin Globulin Ratio 1.1 (0.9-2); Albumin Level 3.8 gm/dl (3.4-5.0); BUN Creatinine Ratio 18.7 (10-20); Bilirubin,Total 0.7 mg/dl (0.2-1.0); Calcium 9.3 mg/dl (8.6-10.3); Creatinine Clr Calc Pharmacy 50.9 ml/min; Est GFR (African American) 53.9 ml/min; Est GFR (Non-African American) 46.5 ml/min; Globulin 3.5 gm/dl (2.5-4.0); Magnesium 2.1 mg/dl (1.7-2.4); Potassium 3.8 mmol/L (3.5-5.1); Total Protein 7.3 gm/dl (6.0-8.3)
[2022-12-09 05:07] LABS: Prothrombin Time 10.8 Seconds (9.0-12.0)
[2022-12-09] MEDS: HEPARIN SOD 5,000 UNIT/0.5 ML VIAL SQ SCH (08:45)
[2022-12-09] MEDS ORDERED: CLOPIDOGREL BISULFATE 75 MG TAB PO SCH (09:00)
[2022-12-09] MEDS ORDERED: BUMETANIDE 1 MG TAB PO SCH (09:00)
[2022-12-09] MEDS ORDERED: CALCITONIN SALMON NA 200 IU/AC 3.7 ML BTL SCH (09:00)
[2022-12-09] MEDS ORDERED: PANTOprazole 40 MG TAB PO SCH (09:00)
[2022-12-09] MEDS ORDERED: ISOSORBIDE MONO EXTENDED REL 60 MG TABCR PO SCH (09:00)
[2022-12-09] MEDS ORDERED: FINASTERIDE 5 MG TAB PO SCH (09:00)
[2022-12-09] MEDS ORDERED: allopurinoL 100 MG TAB PO SCH (09:00)
[2022-12-09] MEDS ORDERED: DONEPEZIL HCL 10 MG TAB PO SCH (09:00)
[2022-12-09] MEDS ORDERED: LEVOTHYROXINE SODIUM 25 MCG TABLET PO SCH (09:00)
[2022-12-09] MEDS ORDERED: ASPIRIN 81 MG ECTAB PO SCH (09:00)
--- NOTE | 2022-12-09 11:22 | XCELERA ---
[id number] \\[email or web address]\[id number]
--- NOTE | 2022-12-09 11:41 | Cardiology Progress Note ---
Date of Service December 09, 2022 Assessment & Plan (1) Elevated troponin I level: (2) Heart block: (3) Coronary artery disease involving coronary bypass graft of [place] heart: (4) Moderate aortic regurgitation: (5) Aortic aneurysm: Plan 1. Abnormal troponin: No significant rise after admission. This is markedly lower than prior readings during his hospitalization 2019. Do not think this is pest control service representative of an acute coronary syndrome. No new regional wall motion abnormalities on echocardiography and overall preserved LV systolic function. 2. Coronary disease: He can continue secondary prevention with a daily aspirin and high-dose atorvastatin 3. Heart block: He has an element of AV burton conduction disease. Think this is mostly Mobitz 1 conduction occasional blocked PACs. As noted below, I would re-evaluate the efficacy and assess [place] of donepezil and this circumstance. Otherwise, I do not believe this is a pressing indication for permanent pacing. I would like to see him up in about to make sure that there are no symptoms associated with ambulation. 4. Valvular heart disease: Mild to moderate aortic insufficiency and mild mitral regurgitation. 5. Aortic aneurysm: He was noted to have very minor dilation in the ascending thoracic aorta on prior imaging. Do not think there is any need for repeat evaluation. Certainly not a candidate for intervention. 6. Pulmonary hypertension: Likely related to diastolic heart failure. The he is on a daily dose of bumetanide which could easily be increased to 1.5 mg daily. No current symptoms. Lung examination benign. BNP actually improved from a measurement and day. If he is ambulatory with a reasonable heart rate response in the absence of symptoms I think he could be safely discharged today. I would re-evaluate his need for donepezil I think increasing his bumetanide to 1.5 mg daily would be reasonable intervention. Admission and Anticipated Discharge Date Admission Date: December 08, 2022 Subjective This morning the patient had no specific complaints. He did not recall any specific symptoms over the course of the evening. He specifically denied chest discomfort or breathing difficulty. He reports being ambulatory with a walker, but not sure this is true. He did not describe dizziness, lightheadedness or palpitations. Review of Systems Review of Systems: Unobtainable due to cognitive status Physical Exam Physical Exam: The patient is alert. He answered questions, but seemed quite forgetful. HEENT: Pupils are equal and reactive to light and accommodation. Extraocular movements are intact. The sclerae are anicteric. Neuro: Cranial nerves intact Lungs: Clear to auscultation bilaterally. He has good air movement without use of accessory muscles. No rales wheezes or rhonchi. Cardiac: The heart rhythm was irregular. Normal S1 and S2. Holosystolic murmur. Pulses: The patient has palpable radial pulses bilaterally that are equal in intensity Extremities: There was no evidence of hypoperfusion. There is no cyanosis or clubbing. He was wearing SCDs Skin: I did not appreciate any rashes on examination today. Results & Data Vital Signs (Past 12 Hours) Vital Signs Temp Pulse Pulse Resp BP Pulse Ox O2 Del Method 12/09/22 11:21 36.6 C 57 L 17 144/70 H 94 Room Air 12/09/22 07:38 66 12/09/22 07:19 36.7 C 66 19 176/72 H 91 Room Air 12/09/22 03:56 36.6 C 63 18 179/67 H 95 Room Air Laboratory Results Abnormal Lab Results 12/08/22 12/08/22 12/08/22 13:50 13:50 15:18 WBC 9.58 RBC 4.52 L Hgb 14.5 Hct 44.5 MCV 98.5 MCH 32.1 MCHC 32.6 RDW Std Deviation 58.4 H RDW Coeff of Marisol 15.9 H Plt Count 245 MPV 11.4 Immature Gran % (Auto) 0.5 Neut % (Auto) 77.8 Lymph % (Auto) 13.3 [place] % (Auto) 7.5 Eos % (Auto) 0.5 Baso % (Auto) 0.4 Neut # (Auto) 7.45 H Lymph # (Auto) 1.27 [place] # (Auto) 0.72 H Eos # (Auto) 0.05 Baso # (Auto) 0.04 Immature Gran # (Auto) 0.05 PT INR Sodium 138 Potassium 4.3 Chloride 104 Carbon Dioxide 26 Anion Gap 8 BUN 24 H Creatinine 1.32 Est Cr Clr Drug Dosing 50.6 Est GFR ( Amer) 57.4 Est GFR (Non-Af Amer) 49.5 BUN/Creatinine Ratio 18.2 Glucose 136 H Calcium 9.9 Magnesium Total Bilirubin 0.7 AST 17 ALT 10 Alkaline Phosphatase 76 Total Creatine Kinase Troponin I High Sens 73.3 H* B-Natriuretic Peptide Total Protein 8.4 H Albumin 4.3 Globulin 4.1 H Albumin/Globulin Ratio 1.0 Lipase 31 Nasal Screen MRSA (PCR) SARS-CoV-2, RNA, NAAT NEGATIVE 12/08/22 12/08/22 12/08/22 17:20 17:33 17:33 WBC RBC Hgb Hct MCV MCH MCHC RDW Std Deviation RDW Coeff of Marisol Plt Count MPV Immature Gran % (Auto) Neut % (Auto) Lymph % (Auto) [place] % (Auto) Eos % (Auto) Baso % (Auto) Neut # (Auto) Lymph # (Auto) [place] # (Auto) Eos # (Auto) Baso # (Auto) Immature Gran # (Auto) PT INR Sodium Potassium Chloride Carbon Dioxide Anion Gap BUN Creatinine Est Cr Clr Drug Dosing Est GFR ( Amer) Est GFR (Non-Af Amer) BUN/Creatinine Ratio Glucose Calcium Magnesium 1.9 Total Bilirubin AST ALT Alkaline Phosphatase Total Creatine Kinase 66 Troponin I High Sens 76.4 H* B-Natriuretic Peptide 355 H Total Protein Albumin Globulin Albumin/Globulin Ratio Lipase Nasal Screen MRSA (PCR) Negative SARS-CoV-2, RNA, NAAT 12/08/22 12/09/22 12/09/22 22:37 04:16 04:16 WBC 7.69 RBC 4.01 L Hgb 13.1 L Hct 39.6 L MCV 98.8 MCH 32.7 MCHC 33.1 RDW Std Deviation 57.5 H RDW Coeff of Marisol 15.8 H Plt Count 216 MPV 11.4 Immature Gran % (Auto) Neut % (Auto) Lymph % (Auto) [place] % (Auto) Eos % (Auto) Baso % (Auto) Neut # (Auto) Lymph # (Auto) [place] # (Auto) Eos # (Auto) Baso # (Auto) Immature Gran # (Auto) PT INR Sodium Potassium Chloride Carbon Dioxide Anion Gap BUN Creatinine Est Cr Clr Drug Dosing Est GFR ( Amer) Est GFR (Non-Af Amer) BUN/Creatinine Ratio Glucose Calcium Magnesium Total Bilirubin AST ALT Alkaline Phosphatase Total Creatine Kinase Troponin I High Sens 65.3 H* D 71.7 H* B-Natriuretic Peptide Total Protein Albumin Globulin Albumin/Globulin Ratio Lipase Nasal Screen MRSA (PCR) SARS-CoV-2, RNA, NAAT 12/09/22 12/09/22 12/09/22 04:16 04:16 09:54 WBC RBC Hgb Hct MCV MCH MCHC RDW Std Deviation RDW Coeff of Marisol Plt Count MPV Immature Gran % (Auto) Neut % (Auto) Lymph % (Auto) [place] % (Auto) Eos % (Auto) Baso % (Auto) Neut # (Auto) Lymph # (Auto) [place] # (Auto) Eos # (Auto) Baso # (Auto) Immature Gran # (Auto) PT 10.8 INR 1.0 Sodium 139 Potassium 3.8 Chloride 107 Carbon Dioxide 25 Anion Gap 7 BUN 26 H Creatinine 1.39 Est Cr Clr Drug Dosing 50.9 Est GFR ( Amer) 53.9 Est GFR (Non-Af Amer) 46.5 BUN/Creatinine Ratio 18.7 Glucose 105 H Calcium 9.3 Magnesium 2.1 Total Bilirubin 0.7 AST 15 ALT 10 Alkaline Phosphatase 67 Total Creatine Kinase Troponin I High Sens 72.3 H* B-Natriuretic Peptide Total Protein 7.3 Albumin 3.8 Globulin 3.5 Albumin/Globulin Ratio 1.1 Lipase Nasal Screen MRSA (PCR) SARS-CoV-2, RNA, NAAT Diagnostic Findings Chest x-ray obtained the time admission did not reveal any acute cardiopulmonary process. Cardiac catheterization performed 08/26/2019: Severe [place] vessel disease with widely patent COBURN to LAD, SVG to OM and SVG to PDA. Echocardiogram performed 08/19/2019: Normal LV systolic function. Stage II diastolic dysfunction. Moderate aortic regurgitation. Mild mitral regurgitation. Echocardiogram performed 12/09/2022: Normal LV systolic function, mild-to- moderate aortic regurgitation, mild mitral regurgitation. Pulmonary hypertension PG Care Time/CCT Total # of Minutes Spent Total Time Spent with Patient: Total time spent is greater than 50% in coordination of care (as documented) at patient's floor/unit and/or counseling patient: Coding Level of Care Code 11160 SUB INP/OBS CARE 2/35MIN Diagnoses Elevated troponin I level R77.8 Heart block I45.9 Coronary artery disease involving coronary bypass graft of [place] heart I25.810 Moderate aortic regurgitation I35.1 Aortic aneurysm I71.9
--- NOTE | 2022-12-09 14:17 | Discharge Summary ---
Date of Service December 09, 2022 Admission HPI Per Admitting Provider Michael is an 82 year old male with a PMH significant for CAD S/P CABG with STENT placement in 2016, last hear cath at [facility] in 2019 with Severe [place] vessel disease, Patent bypass grafts, and elevated left ventricular end- diastolic pressure, Wenckebach second degree AV block, HFpEF, hypertension, hyperlipidemia, dementia, and BPH who presented to the [facility] ED on 12/08/[address] [facility] due to an episode of sliding out of his wheelchair and experiencing chest pain. In the ED the patient was noted to be bradycardic with HR in the 30-50's but otherwise stable. Labs were significant for a high sen trop of 73. Chest xray was read as "No acute chest disease. Cardiomegaly is noted.". ECG was showing what appeared to be a type 2 AV block. Prior to admission the patient was given 324 mg aspirin. At the time of the exam the patient was sitting in bed in no acute distress. The patient was able to provide little history due to his baseline mental status. He currently has no complaints and denies any chest pain, SOB, cough, abd pain, head/neck/back pain, nausea, vomiting, diarrhea, dysuria, hematuria, melena, and LE swelling. I called and spoke to [facility] nursing staff who provided additional information. The patient was found on the ground this am, sitting on his buttocks in front of his recliner. He reported to staff that he slid out of his recline and was on the ground for an unknown amount of time. The patient was assisted up and had breakfast. He later reported chest pain to nursing staff who obtained an ECG and spoke to the [facility] and MD at [facility]. Due to the patient's fall, generalized weakness, and reported chest pain they wanted him evaluated in the ED. The confirmed that the patient had all his am medications prior to EMS arrival. I was also able to call and speak with the patient's sister/POA (Beverly Lang [phone]). She confirmed that the patient had previous CABG and JIAN placement. She also stated that the patient had a previous fall about 3 weeks ago with a known L4 compression fracture. We had a long discussion regarding code status as the patient was previously a Full code. She explains that the patient's cognitive function has declined substantially over the past year with his dementia, now requiring assistance at [facility]. She does not believe that her brother would want to be a full code at this time and would want to be a DNR/DNI as his quality of life has significantly changed and would likely become worse if he were to require CPR and/or intubation. Please refer to Dr. Camejo's attestation for any changes to the treatment plan Principal Diagnosis chest pain Discharge Exam General: In no acute distress, stated age, well-nourished, good hygiene, non- toxic appearing HEENT: Normocephalic, atraumatic, no scleral icterus, pupils around round, symmetrical, and reactive to light, moist mucus membranes, trachea midline, no thyromegaly Chest/Pulm: No reproducible chest pain on palpation, No respiratory distress, symmetrical chest expansion, clear breath sounds throughout Cardiac: regular rate, irregular rhythm, systolic murmur noted Abdomen: Negative for ascites and bruising, normoactive bowel sounds, soft, non-tender to palpation throughout Musculoskeletal: Symmetrical and without signs of acute trauma, upper and lower extremities with full ROM Extremities: Radial, dorsalis pedis, and posterior tibial pulses are intact and symmetrical, no edema noted in the BL LE's Skin: Warm, dry, no rashes , lesions, or scars noted Neuro: Alert and oriented to person, place, only no focal defects, CN II-XII tested and intact, no tremors noted Psych: No acute distress, calm and cooperative during the exam Discharge Data Allergies Allergy/AdvReac Type Severity Reaction Status Date / Time No Known Allergies Allergy Unverified 12/15/19 10:18 Consultations 12/08/22 15:10 ED Decision to Admit Stat 12/08/22 16:40 Consult Cardiology Routine Hospital Course (1) Chest pain: -Admit to the PCU on tele -Currently stable with a variable HR from the 30's-60's, patient has been stable and asymptomatic -Nursing staff reported that the patient was found sitting on the ground in front of his recliner this am, later complained of chest pain -Review of ECG and tele in the ED appears consistent with his history of Type 1, second degree AV block as the NJ interval gets progressively longer before a QRS complex is dropped -No acute ST segment or T-wave changes -Initial high sen trop elevated at 73, will repeat a STAT 2 hour high sen trop now -Continue to monitor on tele, will trend high sen trop q6h overnight -Will obtain TTE in the AM for further evaluation -Will continue home Aspirin/Plavix for previous CABG and JIAN placement -Cardiology consult placed Appreciate input from Cardiology: 1. Abnormal troponin: No significant rise after admission. This is markedly lower than prior readings during his hospitalization 2019. 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 No new regional wall motion abnormalities on echocardiography and overall preserved LV systolic function. 2. Coronary disease: He can continue secondary prevention with a daily aspirin and high-dose atorvastatin 3. Heart block: He has an element of AV burton conduction disease. Think this is mostly Mobitz 1 conduction occasional blocked PACs. As noted below, I would re-evaluate the efficacy and assess [place] of donepezil and this circumstance. Otherwise, I do not believe this is a pressing indication for permanent pacing. I would like to see him up in about to make sure that there are no symptoms associated with ambulation. 4. Valvular heart disease: Mild to moderate aortic insufficiency and mild mitral regurgitation. 5. Aortic aneurysm: He was noted to have very minor dilation in the ascending thoracic aorta on prior imaging. Do not think there is any need for repeat evaluation. Certainly not a candidate for intervention. 6. Pulmonary hypertension: Likely related to diastolic heart failure. The he is on a daily dose of bumetanide which could easily be increased to 1.5 mg daily. No current symptoms. Lung examination benign. BNP actually improved from a measurement and day. If he is ambulatory with a reasonable heart rate response in the absence of symptoms I think he could be safely discharged today. I would re-evaluate his need for donepezil I think increasing his bumetanide to 1.5 mg daily would be reasonable intervention. will defer changes to his medications to his PCP. (2) Elevated troponin I level: -See chest pain -At this time appears more consistent with demand ischemia due to fall and being on ground for unknown amount of time (3) Wenckebach second degree AV block: -Appears consistent today with previous diagnosis -Avoid AV burton blocking agents (4) Fall: -Patient found on ground this am by nursing staff, he reported to the them that he slipped out of his recliner -Patient down for unknown amount of time -Denies any pain, no acute trauma or pain on exam (5) Compression fracture of L4 vertebra: -Patient's POA/sister reports the patient sustained an L4 compression fracture after a fall approximately 2-3 weeks ago -Has been on daily intranasal calcitonin -Hayden confirms his last dose is tomorrow, will continue -Patient was without pain, crepitus, or step off's on spinal exam today, will hold on additional imaging at this time. If he complains of any pain would repeat imaging -Fall precuations ordered (6) Coronary artery disease involving coronary bypass graft of [place] heart: -Continue Aspirin and Plavix (7) Dementia: -Continue Donepezil (8) Heart failure with preserved ejection fraction: -Appears Euvolemic on exam -Continue Imdur and daily Bumex Total Time Total Time Spent Total Time Spent (In Minutes): 32 Discharge Plan Discharge Items Patient Disposition: Transfer [facility] Fac Reason For Visit: CHEST PAIN Discharge Diagnosis: chest pain Activity: Resume your previous activity Non-emergency contact: Primary Care Provider Call non-emergency contact if: you have any medication questions Follow-up/Referrals: Hayden Arnett [Primary Care Provider] - Diet: Heart Healthy Addtl Attending Provider Instructions: Please re-eval if patient needs to continue donepzeil as patient appears to have advanced dementia. This can be playing a role with his type 1 heart block. Pending Studies at Discharge: No Stand-Alone Forms: [facility] Skilled Items Patient informed of condition?: Yes DNR: Yes Discharge Level of Care: Skilled Communicable Disease: No Discharge Prognosis: Stable Lines: None Urinary Catheter: No Medications and DC Order Prescriptions: Continued magnesium hydroxide [Milk of Magnesia] 400 mg/5 mL suspension 30 ml PO DAILY PRN (Reason: Constipation) Rx Instructions: EVERY 48 HOURS IF NO BM FOR 2 DAYS finasteride 5 mg tablet 5 mg PO DAILY aspirin 81 mg Tablet,Delayed Release (Dr/Ec) 81 mg PO DAILY cholecalciferol (vitamin D3) [Vitamin D3] 25 mcg (1,000 unit) Tablet 1,000 unit PO DAILY coenzyme Q10 [CoQ-10] 100 mg Capsule 100 mg PO DAILY clopidogrel [Plavix] 75 mg tablet 75 mg PO QAM isosorbide mononitrate 60 mg Tablet Extended Release 24 Hr 60 mg PO QAM Qty: 1 0RF pantoprazole 40 mg Tablet,Delayed Release (Dr/Ec) 40 mg PO QAM Qty: 1 0RF atorvastatin 40 mg Tablet 40 mg PO HS acetaminophen 650 mg Suppository 650 mg NJ Q4H PRN (Reason: Fever) acetaminophen 650 mg Suppository 650 mg NJ Q4H MDD 3MG APAP/24 HOURS PRN (Reason: Pain) donepezil 10 mg Tablet 10 mg PO DAILY allopurinol 100 mg Tablet 100 mg PO DAILY acetaminophen 500 mg Tablet 1,000 mg PO TID Rx Instructions: HIP/BACK PAIN levothyroxine 25 mcg Tablet 25 mcg PO DAILY calcitonin (salmon) 200 unit/actuation [place],Non-Aerosol 1 spray intranasal (ALT) DAILY cyanocobalamin (vitamin B-12) 1,000 mcg/mL Solution 1,000 mcg IM DAILY bumetanide 1 mg Tablet 1 mg PO DAILY gabapentin 100 mg Capsule 100 mg PO HS Discharge Orders: Discharge Order (Routine); Ordered 12/09/22 Ordered By: Julio César Meraz Admission Data Admit Date/Time: 12/08/22 16:04 Attending Provider: Julio César Meraz Admit Provider: Jace Camejo Primary Care Provider: Hayden Arnett Other Providers: Jace Camejo ; Delroy Alonso Other Interventions: Discharge Summary Assessment (RN) Last Done: 12/09/22 14:17 Coding Level of Care Code 14561 INP/OBS DISCH >30 MIN Diagnoses Chest pain R07.9 Chest pain type: unspecified Elevated troponin I level R77.8 Wenckebach second degree AV block I44.1 Fall W19.XXXA Compression fracture of L4 vertebra S32.040A Coronary artery disease involving coronary bypass graft of [place] heart I25.810 Dementia F03.90 Heart failure with preserved ejection fraction I50.30
--- NOTE | 2022-12-10 19:56 | Electrocardiogram Report ---
Test Reason : Blood Pressure : / mmHG Vent. Rate : 064 BPM Atrial Rate : 000 BPM P-R Int : 000 ms QRS Dur : 086 ms QT Int : 432 ms P-R-T Axes : 000 -02 112 degrees QTc Int : 445 ms Poor data quality, interpretation may be adversely affected Sinus rhythm with PACs (soome blocked) and mobitz 1 AV block Minimal voltage criteria for LVH, may be normal variant T wave abnormality, consider lateral ischemia Abnormal ECG When compared with ECG of 01-SEP-2019 07:36, Incomplete right bundle branch block is no longer Present Confirmed by Delroy Alonso ([id number]) on 12/10/2022 7:56:28 PM Referred By: [facility] Confirmed By:Fernando Alonso
== END 2022-12-09 14:45 ==
LOC: 2S 13:30 → ED 13:30 → SUATTDRO 16:04 → 2S 16:54